=== PATIENT | female | born 1930 | race Caucasian/White ===

== ENCOUNTER 2017-04-14 09:00 | Inpatient (IN) | payer MEDICARE, MEDICAID ==
--- NOTE | 2017-04-14 09:13 | ED Physician Chart ---
ED Chief Complaint/HPI - Patient Information Date Seen:: 04/14/17 Time Seen:: 09:07 Chief Complaint:: chest pain History of Present Illness:: pt sent from ID after complaint of CP this am. pt arrives drowsey but not sweaty ..she speaks only romanian and can be aroused and talk w us in sp. she admits still has some moderate cp. not sob. no arm/ neck/jaw pains. no edema. not sob. no nausea. pt was given ntg 4 sprays and baby asa x 4 total from between both ems and NH staff. unclear but seems that asa/ntg has improved pain some. pt arrives w mercedes in 40s...is on multiple rate ctrl meds... no recent fever or cough or rhinitis. known hx of dm w high bs this am hx of cva and htn and high chol... Allergies:: Allergies Allergy/AdvReac Type Severity Reaction Status Date / Time No Known Allergies Allergy Verified 01/14/16 13:40 Historian:: Patient ED Review of Systems - Review of Systems General/Constitutional: No fever, No chills, No weight loss, No weakness, No diaphoresis, No edema, No loss of appetite Skin: No skin lesions, No rash, No bruising Head: No headache, No light-headedness Eyes: No loss of vision, No pain, No diplopia ENT: No earache, No nasal drainage, No sore throat, No tinnitus Neck: No neck pain, No swelling, No thyromegaly, No stiffness, No mass noted Cardio Vascular: Chest pain, No palpitations, No PND, No orthopnea, No edema Pulmonary: No SOB, No cough, No sputum, No wheezing GI: No nausea, No vomiting, No diarrhea, No pain, No melena, No hematochezia, No constipation, No hematemesis G/U: No dysuria, No frequency, No hematuria Tie Buyer: No vaginal discharge Musculoskeletal: No bone or joint pain, No back pain, No muscle pain, Other (no leg edema or pain) Endocrine: No polyuria, No polydipsia Psychiatric: No prior psych history, No depression, No anxiety, No suicidal ideation Hematopoietic: No bruising, No lymphadenopathy Allergic/Immuno: No urticaria, No angioedema Neurological: No syncope, Weakness (prior cva), No paresthesia, No headache, No seizure, No dizziness, No confusion, No vertigo ED Past Medical History - Past Medical History Past Medical History: HTN, DM, CVA/TIA (ambulatory difficulty post cva), Dyslipidemia Social History: Care Facility Medication: Reviewed Family Medical History - Family Member Mother History Unknown: Yes Ethnicity: Living Status: Unknown Hx Family Cancer: ([place]kn[place]) Hx Family Coronary Artery Disease: (unkn[place]) Hx Family Congestive Heart Failure: ([place]kn[place]) Hx Family Hypertension: ([place]) Hx Family Stroke: ([place]) Hx Family Diabetes: ([place]) Hx Family Seizures: ([place]) Hx Family Dementia: ([place]) Hx Family AIDS: ([place]) Hx Family COPD: (unkn[place]) Hx Family Hepatitis: ([place]) Hx Family Psychiatric Problems: (unknwon) Hx Family Tuberculosis: (unknwon) ED Physical Exam - Physical Examination General/Constitutional: Awake, Well-developed, well-nourished, Alert, No distress, GCS 15, Non-toxic appearing Other Gen/Cons comments:: pale color. tired/sleepy but can arouse and talk coherently in romanian without difficulty. she admits some mod cp now. no dyspnea. no edema. Head: Atraumatic Eyes: Lids, conjuctiva normal, PERRL, EOMI Skin: Nl inspection, No rash, No skin lesions, No ecchymosis, Well hydrated, No lymphadenopathy ENMT: External ears, nose nl, Nasal exam nl, Lips, teeth, gums nl Neck: Nontender, Full ROM w/o pain, No JVD, No nuchal rigidity, No bruit, No mass, No stridor Respiratory: Nl effort/Exclusion, Clear to Auscultation, No Wheeze/Rhonchi/Rales Other Respiratory comments:: lungs clear bilat//nonlabored breathing Cardio Vascular: RRR, No murmur, gallop, rubs, NL S1 S2 GI: No tenderness/rebounding/guarding, No organomegaly, No hernia, Normal BS's, Nondistended, No mass/bruits, No McBurney tenderness : No CVA tenderness Extremities: No tenderness or effusion, Full ROM, No edema, Normal digits & nails Neuro/Psych: Alert/oriented, DTR's symmetric, Normal sensory exam, Normal motor strength, Judgement/insight normal, Mood normal Other Neuro/Psych comments:: prior cva w gait difficulty documented.. Misc: normal gait, Normal back, No paraspinal tenderness Other Misc comments:: error above (gait not tested..unclear how to abolish this glitch //IT notified ) ED Labs/Radiology/EKG Results - Lab Results Results: Laboratory Tests 04/14/17 04/14/17 04/14/17 09:29 09:29 09:29 WBC 12.8 H D RBC 3.70 L Hgb 11.0 L Hct 33.0 L MCV 89.1 MCH 29.7 MCHC Differential 33.4 RDW 12.4 Plt Count 204 MPV 8.3 Neutrophils (Manual) 72 Lymphocytes 16 L Monocytes 8 Eosinophils 4 PT 11.7 H INR 1.12 PTT (Actin FS) 27.9 Sodium 121 L Potassium 4.2 Chloride 89 L Carbon Dioxide 20.7 L Anion Gap 15.5 BUN 13 Creatinine 0.7 Est GFR ( Amer) TNP Est GFR (Non-Af Amer) TNP BUN/Creatinine Ratio 18.6 Glucose 276 H Hemoglobin A1c % Whole Bld Lactic Acid Calcium 8.8 Total Bilirubin 0.6 AST 41 H ALT 58 H Alkaline Phosphatase 114 H Troponin I Total Protein 6.1 Albumin 3.8 Globulin 2.3 Albumin/Globulin Ratio 1.7 Blood Type 04/14/17 04/14/17 04/14/17 09:29 09:29 09:29 WBC RBC Hgb Hct MCV MCH MCHC Differential RDW Plt Count MPV Neutrophils (Manual) Lymphocytes Monocytes Eosinophils PT INR PTT (Actin FS) Sodium Potassium Chloride Carbon Dioxide Anion Gap BUN Creatinine Est GFR ( Amer) Est GFR (Non-Af Amer) BUN/Creatinine Ratio Glucose Hemoglobin A1c % Whole Bld Lactic Acid 3.81 H* Calcium Total Bilirubin AST ALT Alkaline Phosphatase Troponin I 0.01 Total Protein Albumin Globulin Albumin/Globulin Ratio Blood Type O POSITIVE 04/14/17 09:29 WBC RBC Hgb Hct MCV MCH MCHC Differential RDW Plt Count MPV Neutrophils (Manual) Lymphocytes Monocytes Eosinophils PT INR PTT (Actin FS) Sodium Potassium Chloride Carbon Dioxide Anion Gap BUN Creatinine Est GFR ( Amer) Est GFR (Non-Af Amer) BUN/Creatinine Ratio Glucose Hemoglobin A1c % 8.9 H Whole Bld Lactic Acid Calcium Total Bilirubin AST ALT Alkaline Phosphatase Troponin I Total Protein Albumin Globulin Albumin/Globulin Ratio Blood Type - Radiology Results Results: cxr - cmegally, mild interstitial markings.(no rales on PE) chronic changes. - EKG Interpretations EKG Time:: 09:05 Rate & Rhythm: mercedes rhythm 39bpm 1 deg hrt block [place]: qrs -58 Intervals: qtc 519 Comments:: LBBB ED Assessment - Assessment Critical Care Time: 1 hr Excludes all billable procedures: Yes This condition life threatening/high prob of deterioration: Yes Assessment/Comments:: life threatening bradycardia. txd w atropine 0.5mg iv and ca gluconate 1g iv. pacer pads on pt skin but left off for now ... ED Septic Shock - . Is Septic Shock (SBP<90, OR Lactate>4 mmol\L) present?: No ED Reassessment (Disposition) - Reassessment Reassessment:: pt had mercedes down to 30s so atropine 0.5 mg iv x 1 w rate improved up to mid 40s. no obvious change in pt ..pt sleeping but easily arousable and no sob. no sweaty. 10:45am - dw Jackelin w admin at 10;49 have not been getting a admit pmd as unclear who pt belongs to ..also need cards consult bentley as mercedes is persisting. have put pacer pads on pt but left pacer off unless pt becomes more unstable. have given ca gluconate 1gm iv also to improve rate...pt is on carvedilol and amlodipine and captopril 10:52am - dw Dr Hoyos...is admitting and consult to Dr Ellison (cards) HR is currently 45. mercedes/no ectopy. Reassessment Condition:: Improved - Diagnosis Diagnosis:: 1 chest pain 2 bradyarrythmia - Patient Disposition Admitted to:: Telemetry Condition at Disposition:: Improved
[2017-04-14] MEDS ORDERED: Sodium Chloride 0.9% 1,000 ML IV ONE (09:26)
[2017-04-14] MEDS ORDERED: Atropine Sulfate 1 mg/mL 1 mL Vial IVP ONE (09:26)
[2017-04-14 09:39] LABS: MEAN CELL VOLUME 89.1 fl (81-100); MEAN CORPUSCULAR HEMOGLOBIN 29.7 pg (27.0-31.0); MEAN CORPUSCULAR HGB CONC 33.4 pg (28.0-36.0); MEAN PLATELET VOLUME 8.3 fl; PLATELET COUNT 204 Th/cmm (150-400); RED CELL DISTRIBUTION WIDTH 12.4 % (11.5-20.0)
[2017-04-14 09:55] LABS: INR 1.12 (0.5-1.4); PROTHROMBIN TIME (TEST) 11.7 SECONDS (9.5-11.5)
[2017-04-14 09:58] LABS: ALB/GLOB RATIO 1.7 (1.0-1.8); ALKALINE PHOSPHATASE 114 U/L (34-104); ANION GAP 15.5 (7.0-16.0); BILIRUBIN,TOTAL 0.6 mg/dL (0.3-1.0); BUN - UREA NITROGEN 13 mg/dL (7-25); BUN/CREATININE RATIO 18.6; CALCIUM SERUM 8.8 mg/dL (8.6-10.3); CARBON DIOXIDE 20.7 mEq/L (21.0-31.0); CHLORIDE 89 mEq/L (98-107); CREATININE - SERUM 0.7 mg/dL (0.6-1.2); GLUCOSE 276 mg/dL (70-105); POTASSIUM SERUM 4.2 mEq/L (3.5-5.1); SGOT 41 U/L (13-39); SGPT/ALT 58 U/L (7-52); SODIUM SERUM 121 mEq/L (136-145)
[2017-04-14 10:06] LABS: EOSINOPHIL 4 % (0-5); NEUTROPHILS 72 % (40-80); TOTAL CELLS COUNTED 100
[2017-04-14 10:08] LABS: WHITE BLOOD COUNT 12.8 Th/cmm (4.8-10.8)
[2017-04-14] MEDS ORDERED: Calcium Gluconate 1 GM in Sodium Chloride 0.9% 100 ML IV ONE (10:21)
--- NOTE | 2017-04-14 11:01 | Diagnostic Imaging Report ---
CHEST X-RAY: AP view INDICATION: pain COMPARISON: 01/14/2016 FINDINGS: Increased interstitial lung markings are noted. There is no focal consolidation or pleural effusions heart size at the upper limits of normal. Degenerative changes of the spine are noted. IMPRESSION: Increased initial markings suggestive of chronic lung changes. No focal consolidation identified. Borderline prominent heart.
[2017-04-14 11:05] LABS: URINE BILIRUBIN NEGATIVE (NEGATIVE); URINE BLOOD NEGATIVE (NEGATIVE); URINE GLUCOSE (UA) >=1000 mg/dL (NEGATIVE); URINE KETONE TRACE mg/dL (NEGATIVE); URINE PROTEIN NEGATIVE (NEGATIVE); URINE UROBILINOGEN 0.2 E.U./dL (0.2 - 1.0)
--- NOTE | 2017-04-14 11:07 | General Progress Note ---
Subjective - Review of Systems Service Date: 04/14/17 Events since last encounter: case dw Dr Ellison at 11;06am. He advises pt go to ICU(staff aware) and is giving atropine prn order. He says will see pt within the hour. Objective - Results Result Diagrams: 04/14/17 09:29 04/14/17 09:29 Recent Labs: Laboratory Last Values WBC 12.8 Th/cmm (4.8-10.8) H D 04/14/17 09:29 RBC 3.70 Mil/cmm (3.80-5.20) L 04/14/17 09:29 Hgb 11.0 gm/dL (12-16) L 04/14/17 09: Hct 33.0 % (41.0-60) L 04/14/17 09: MCV 89.1 fl (81-100) 04/14/17 09: MCH 29.7 pg (27.0-31.0) 04/14/17 09: MCHC Differential 33.4 pg (28.0-36.0) 04/14/17 09: RDW 12.4 % (11.5-20.0) 04/14/17 09: Plt Count 204 Th/cmm (150-400) 04/14/17 09: MPV 8.3 fl 04/14/17 09:29 Neutrophils (Manual) 72 % (40-80) 04/14/17 09: Lymphocytes 16 % (20-50) L 04/14/17 09: Monocytes 8 % (2-10) 04/14/17 09: Eosinophils 4 % (0-5) 04/14/17 09:29 PT 11.7 SECONDS (9.5-11.5) H 04/14/17 09: INR 1.12 (0.5-1.4) 04/14/17 09: PTT (Actin FS) 27.9 SECONDS (26.0-38.0) 04/14/17 09:29 Sodium 121 mEq/L (136-145) L 04/14/17 09: Potassium 4.2 mEq/L (3.5-5.1) 04/14/17 09: Chloride 89 mEq/L (98-107) L 04/14/17 09:29 Carbon Dioxide 20.7 mEq/L (21.0-31.0) L 04/14/17 09:29 Anion Gap 15.5 (7.0-16.0) 04/14/17 09:29 BUN 13 mg/dL (7-25) 04/14/17 09:29 Creatinine 0.7 mg/dL (0.6-1.2) 04/14/17 09:29 Est GFR ( Amer) TNP 04/14/17 09:29 Est GFR (Non-Af Amer) TNP 04/14/17 09:29 BUN/Creatinine Ratio 18.6 04/14/17 09:29 Glucose 276 mg/dL (70-105) H 04/14/17 09:29 Hemoglobin A1c % 8.9 % (4.0-6.0) H 04/14/17 09:29 Whole Bld Lactic Acid 3.81 mmol/L (0.60-1.99) H* 04/14/17 09:29 Calcium 8.8 mg/dL (8.6-10.3) 04/14/17 09:29 Total Bilirubin 0.6 mg/dL (0.3-1.0) 04/14/17 09:29 AST 41 U/L (13-39) H 04/14/17 09:29 ALT 58 U/L (7-52) H 04/14/17 09:29 Alkaline Phosphatase 114 U/L (34-104) H 04/14/17 09:29 Troponin I 0.01 ng/mL (0.01-0.05) 04/14/17 09:29 Total Protein 6.1 gm/dL (6.0-8.3) 04/14/17 09:29 Albumin 3.8 gm/dL (3.7-5.3) 04/14/17 09:29 Globulin 2.3 gm/dL 04/14/17 09:29 Albumin/Globulin Ratio 1.7 (1.0-1.8) 04/14/17 09:29 Blood Type O POSITIVE 04/14/17 09:29 - Physical Exam Vitals and I&O: Vital Signs Temp 98.6 F 04/14/17 10:15 Pulse 41 04/14/17 10:15 Resp 15 04/14/17 10:15 BP 130/45 04/14/17 10:15 Pulse Ox 99 04/14/17 10:15 Intake & Output 04/13/17 04/14/17 04/14/17 18:59 06:59 18:59 Weight (lbs) 74.843 kg Active Medications: Current Medications Atropine Sulfate (Atropine) 0.5 mg IVP ONCE ONE Stop: 04/14/17 09:27 Last Admin: 04/14/17 09:31 Dose: 0.5 mg Sodium Chloride (Nacl 0.9%) 1,000 mls @ 100 mls/hr IV .Q10H ONE Stop: 04/14/17 19:25 Last Admin: 04/14/17 09:32 Dose: 100 mls/hr Calcium Gluconate 1 gm/ Sodium (Chloride) 110 mls @ 100 mls/hr IV NOW ONE Stop: 04/14/17 11:26 Last Admin: 04/14/17 10:41 Dose: 100 mls/hr - Procedures Procedures: Procedures Procedure Code Date GROUP PSYCHOTHERAPY 61577 05/02/15 GROUP PSYCHOTHERAPY GZHZZZZ 05/02/15 OTHER GROUP THERAPY 94.44 10/09/14 RECREATIONAL THERAPY 93.81 07/05/09 Assessment/Plan - Problem List Patient Problems: All Active Problems Aggression (Acute) R45.89 Agitation (Acute) R45.1
[2017-04-14 11:08] LABS: URINE COLOR YELLOW
[2017-04-14 11:11] LABS: URINE RBC 0-2 /hpf (0-5)
[2017-04-14 11:12] LABS: URINE BACTERIA MANY /hpf (NONE SEEN); URINE EPITHELIAL CELLS FEW /lpf (FEW)
--- NOTE | 2017-04-14 12:37 | Internal Medicine Prog Note ---
Internal Medicine Subjective - Subjective Service Date: 04/14/17 ([facility] [id number]) Internal Medicine Objective - Results Result Diagrams: 04/14/17 09:29 04/14/17 09:29 Recent Labs: Laboratory Last Values WBC 12.8 Th/cmm (4.8-10.8) H D 04/14/17 09: RBC 3.70 Mil/cmm (3.80-5.20) L 04/14/17 09: Hgb 11.0 gm/dL (12-16) L 04/14/17 09: Hct 33.0 % (41.0-60) L 04/14/17 09: MCV 89.1 fl (81-100) 04/14/17 09: MCH 29.7 pg (27.0-31.0) 04/14/17 09: MCHC Differential 33.4 pg (28.0-36.0) 04/14/17 09: RDW 12.4 % (11.5-20.0) 04/14/17 09: Plt Count 204 Th/cmm (150-400) 04/14/17 09:29 MPV 8.3 fl 04/14/17 09: Neutrophils (Manual) 72 % (40-80) 04/14/17 09: Lymphocytes 16 % (20-50) L 04/14/17 09: Monocytes 8 % (2-10) 04/14/17 09: Eosinophils 4 % (0-5) 04/14/17 09: PT 11.7 SECONDS (9.5-11.5) H 04/14/17 09: INR 1.12 (0.5-1.4) 04/14/17 09:29 PTT (Actin FS) 27.9 SECONDS (26.0-38.0) 04/14/17 09:29 Sodium 121 mEq/L (136-145) L 04/14/17 09: Potassium 4.2 mEq/L (3.5-5.1) 04/14/17 09: Chloride 89 mEq/L (98-107) L 04/14/17 09: Carbon Dioxide 20.7 mEq/L (21.0-31.0) L 04/14/17 09: Anion Gap 15.5 (7.0-16.0) 04/14/17 09:29 BUN 13 mg/dL (7-25) 04/14/17 09:29 Creatinine 0.7 mg/dL (0.6-1.2) 04/14/17 09:29 Est GFR ( Amer) TNP 04/14/17 09:29 Est GFR (Non-Af Amer) TNP 04/14/17 09:29 BUN/Creatinine Ratio 18.6 04/14/17 09:29 Glucose 276 mg/dL (70-105) H 04/14/17 09:29 Hemoglobin A1c % 8.9 % (4.0-6.0) H 04/14/17 09:29 Whole Bld Lactic Acid 2.80 mmol/L (0.60-1.99) H* 04/14/17 11:21 Calcium 8.8 mg/dL (8.6-10.3) 04/14/17 09: Total Bilirubin 0.6 mg/dL (0.3-1.0) 04/14/17 09: AST 41 U/L (13-39) H 04/14/17 09:29 ALT 58 U/L (7-52) H 04/14/17 09:29 Alkaline Phosphatase 114 U/L (34-104) H 04/14/17 09: Troponin I 0.01 ng/mL (0.01-0.05) 04/14/17 09:29 Total Protein 6.1 gm/dL (6.0-8.3) 04/14/17 09: Albumin 3.8 gm/dL (3.7-5.3) 04/14/17 09: Globulin 2.3 gm/dL 04/14/17 09:29 Albumin/Globulin Ratio 1.7 (1.0-1.8) 04/14/17 09:29 Urine Source CATH 04/14/17 10:02 Urine Color YELLOW 04/14/17 10:02 Urine Clarity HAZY (CLEAR) 04/14/17 10:02 Urine pH 6.0 (4.6 - 8.0) 04/14/17 10:02 Ur Specific [place] 1.010 (1.005-1.030) 04/14/17 10:02 Urine Protein NEGATIVE mg/dL (NEGATIVE) 04/14/17 10:02 Urine Glucose (UA) >=1000 mg/dL (NEGATIVE) H 04/14/17 10:02 Urine Ketones TRACE mg/dL (NEGATIVE) 04/14/17 10:02 Urine Blood NEGATIVE (NEGATIVE) 04/14/17 10:02 Urine Nitrate POSITIVE (NEGATIVE) H 04/14/17 10:02 Urine Bilirubin NEGATIVE (NEGATIVE) 04/14/17 10:02 Urine Urobilinogen 0.2 E.U./dL (0.2 - 1.0) 04/14/17 10:02 Ur Leukocyte Esterase NEGATIVE (NEGATIVE) 04/14/17 10:02 Urine RBC 0-2 /hpf (0-5) 04/14/17 10:02 Urine WBC 2-5 /hpf (0-5) 04/14/17 10:02 Ur Epithelial Cells FEW /lpf (FEW) 04/14/17 10:02 Urine Bacteria MANY /hpf (NONE SEEN) 04/14/17 10:02 Blood Type O POSITIVE 04/14/17 09:29 - Physical Exam Vitals and I&O: Vital Signs Temp 98.6 F 04/14/17 11:03 Pulse 58 04/14/17 11:03 Resp 19 04/14/17 11:03 BP 130/45 04/14/17 10:15 Pulse Ox 100 04/14/17 11:03 Active Medications: Current Medications Atropine Sulfate (Atropine Syringe) 1 mg IVP Q4H PRN PRN Reason: HR below40 Stop: 06/13/17 12:59 Sodium Chloride (Nacl 0.9%) 1,000 mls @ 100 mls/hr IV .Q10H ONE Stop: 04/14/17 19:25 Last Admin: 04/14/17 09:32 Dose: 100 mls/hr - Procedures Procedures: Procedures Procedure Code Date GROUP PSYCHOTHERAPY 09547 05/02/15 GROUP PSYCHOTHERAPY GZHZZZZ 05/02/15 OTHER GROUP THERAPY 94.44 10/09/14 RECREATIONAL THERAPY 93.81 07/05/09 Internal Medicine Assmt/Plan - Assessment Assessment: Chest Pain Bradycardia Lactic acidosis Acute UTI dementia htn dm-2 hyponatremia
[2017-04-14] MEDS ORDERED: Ipratropium Neb 0.5 mg/2.5 mL UD IH PRN (12:42)
[2017-04-14] MEDS ORDERED: guaiFENesin 200 MG/10 ML UDC PO PRN (12:42)
[2017-04-14] MEDS ORDERED: Albuterol Nebulizer 2.5mg/3mL IH PRN (12:42)
[2017-04-14] MEDS ORDERED: Sodium Chloride 0.9% 1,000 ML IV SCH (12:45)
[2017-04-14] MEDS ORDERED: Levofloxacin 500mg/100mL 500 MG/100 ML BAG IV ONE (14:10)
[2017-04-14] MEDS: Levofloxacin 500mg/100mL 500 MG/100 ML BAG IV SCH (14:13)
[2017-04-14] MEDS ORDERED: Non-Formulary Item 1 EA (Insulin Lispro [Humalog] 2 UNIT) SUBQ SCH (16:30)
--- NOTE | 2017-04-14 16:39 | History & Physical ---
ADMIT DATE: 04/14/2017 CHIEF COMPLAINT: Chest pain. HISTORY OF PRESENT ILLNESS: This is an 86-year-old female who has a 2-day history of chest pain. In the ER, the patient was noted to have a symptomatic bradycardia. Heart rate would be in the mid 30s to the mid 50s. For this reason, the patient will be admitted to the ICU unit. PAST MEDICAL HISTORY: Stroke, hypercholesterolemia, hypertension, dementia. PAST SURGICAL HISTORY: Unknown. MEDICATIONS: Lantus, metformin, Norvasc, captopril, Reglan, omeprazole, Aricept, Colace, temazepam, Namenda, simvastatin, and Zyprexa. ALLERGIES: No known allergies. SOCIAL HISTORY: The patient is a skilled nursing resident, requiring 24-hour nursing care. FAMILY HISTORY: Noncontributory. REVIEW OF SYSTEMS: GENERAL: Denies any fevers and chills. CARDIOVASCULAR: The patient noted bradycardia, complaints of chest pain. RESPIRATORY: Denies any shortness of breath or any cough. GASTROINTESTINAL: Denies nausea, vomiting, abdominal pain. GENITOURINARY: Denies any dysuria. All other systems are reviewed by me and are negative. PHYSICAL EXAMINATION: GENERAL: This is an elderly female, awake, alert, in no apparent distress. VITAL SIGNS: Temperature 98.6, heart rate 58, respirations 19, blood pressure 130/45, O2 sat of 100%. HEENT: Head; normocephalic, atraumatic. NECK: Supple. No mass. LUNGS: Clear bilaterally. HEART: No murmurs, no gallops. ABDOMEN: Soft and nontender. LABORATORY DATA: WBC 12.8, hemoglobin 11.0, hematocrit 33.0. Sodium 121, potassium 4.2, chloride 89, carbon dioxide 20.7. BUN 13, creatinine 0.7 whole blood lactic acid 2.80, hemoglobin A1c 8.9. The patient was given in x1 calcium gluconate as well as x1 IV push of atropine. DIAGNOSTICS: The patient had a chest x-ray done and impression is increased interstitial markings suggestive of chronic lung changes, no focal consolidation identified. ASSESSMENT: Chest pain, bradycardia, hyponatremia, lactic acidosis, type 2 diabetes, hypertension, dementia. PLAN: The patient to be admitted to the ICU unit. We will get an echocardiogram. We will have Dr. Hang Ellison on the case. We will have Dr. Ames for possible pacemaker placement, 2D echocardiogram, IV fluids for hydration. We will monitor patient's electrolytes level. We will continue to monitor the patient. JOB# [id number]
[2017-04-14] MEDS: MED PO SCH (16:49)
[2017-04-14] MEDS: Dextromethorphan/Quinidine 20mg/10mg Cap PO SCH (16:50)
[2017-04-14] MEDS ORDERED: METFORMIN HCL 1000 MG PO SCH (17:00)
[2017-04-14] MEDS: Sodium Chloride 0.9% 1,000 ML IV SCH (20:59)
[2017-04-14] MEDS ORDERED: Non-Formulary Item 1 EA (Rosuvastatin Calcium [Crestor] 5 MG) PO SCH (21:00)
[2017-04-14] MEDS ORDERED: INSULIN ASPART MIX SUBQ SCH (21:00)
[2017-04-14] MEDS ORDERED: PRAVASTATIN SODIUM 80 MG PO SCH (21:00)
[2017-04-14] MEDS ORDERED: GLUCAGON HCl 1 MG KIT IM PRN (21:01)
[2017-04-14] MEDS ORDERED: Dextrose 50% 50 mL Abboject IVP PRN (21:01)
[2017-04-14] MEDS: INSULIN ASPART SLIDING SCALE 100 UNITS/ML UNIT SUBQ SCH (22:00)
--- NOTE | 2017-04-15 02:22 | Consultation ---
DATE OF CONSULTATION: 04/14/2017 PATIENT OF: Dr. Chacon. HISTORY AND PHYSICAL: This 86-year-old female patient was brought to the Emergency Room complaining of weakness. In the Emergency Room, the patient was found to have severe bradycardia with episodes of third-degree AV block and the patient was admitted. PAST MEDICAL HISTORY: CVA with late effect, hyperlipidemia, hypertension, dementia, anemia, diabetes mellitus type 2, hyperlipidemia. FAMILY HISTORY: Unremarkable. SOCIAL HISTORY: No history of smoking or alcohol abuse. ALLERGIES: No known allergies. PHYSICAL EXAMINATION: VITAL SIGNS: Blood pressure 130/80, pulse 40, respirations 20. HEAD: Normocephalic. No lumps or bumps. EYES: Pupils equal, reactive to light. Fundi show AV nicking, sclerae white, conjunctivae pink. NECK: Carotid 2+. Normal upstroke. JVD flat. Thyroid not palpable. Lymph nodes not palpable. CHEST: Shows increased AP diameter. No kyphosis, scoliosis. LUNGS: Bilateral bronchovesicular breath sounds. Occasional wheeze. No rales. HEART: PMI fifth intercostal space with lateral to midclavicular line. S1, S2. No S3, S4. Systolic murmur, grade 2/6, lower left sternal border without radiation. ABDOMEN: Soft. Liver, spleen not palpable. No organomegaly. Bowel sounds are active. NEUROLOGIC: Unremarkable. EXTREMITIES: Peripheral pulses 2+. No pedal edema. CLINICAL IMPRESSION: Complete heart block, iron deficiency anemia, hyponatremia, diabetes mellitus type 2, hyperlipidemia, cerebrovascular accident with late effect dementia, and osteoporosis. PLAN: The patient to have an external pacemaker at the present time followed by AV sequential pacemaker. We will also get echocardiogram and troponin levels, TSH level. JOB# [id number]
[2017-04-15 05:50] LABS: % BASOPHILS 3.1 % (0.0-2.0); % EOSINOPHILS 0.4 % (0.0-5.0); % LYMPHOCYTES 15.9 % (20.0-50.0); % MONOCYTES 7.2 % (2.0-10.0); % NEUTROPHILS 73.4 % (40.0-80.0); HEMATOCRIT 29.8 % (41.0-60); HEMOGLOBIN 10.1 gm/dL (12-16); MEAN CELL VOLUME 88.9 fl (81-100); MEAN CORPUSCULAR HGB CONC 33.8 pg (28.0-36.0); MEAN PLATELET VOLUME 8.2 fl; NEUTROPHILE ABSOLUTE 6.8 Th/cmm (1.8-8.0); PLATELET COUNT 170 Th/cmm (150-400); RED BLOOD COUNT 3.35 Mil/cmm (3.80-5.20); RED CELL DISTRIBUTION WIDTH 12.4 % (11.5-20.0)
[2017-04-15 05:51] LABS: WHITE BLOOD COUNT 9.3 Th/cmm (4.8-10.8)
[2017-04-15 06:34] LABS: BUN - UREA NITROGEN 13 mg/dL (7-25); BUN/CREATININE RATIO 16.3; CALCIUM SERUM 8.5 mg/dL (8.6-10.3); CARBON DIOXIDE 24.6 mEq/L (21.0-31.0); CHLORIDE 97 mEq/L (98-107); CREATININE - SERUM 0.8 mg/dL (0.6-1.2); GLUCOSE 201 mg/dL (70-105); MAGNESIUM 1.9 mg/dL (1.9-2.7); PHOSPHOROUS 4.3 mg/dL (2.5-5.0); POTASSIUM SERUM 4.6 mEq/L (3.5-5.1); SODIUM SERUM 127 mEq/L (136-145)
[2017-04-15] MEDS ORDERED: INSULIN 70/30 100 UNITS/ML SUBQ SCH (07:30)
[2017-04-15] MEDS: INSULIN ASPART SLIDING SCALE 100 UNITS/ML UNIT SUBQ SCH ×5 (08:00→21:53)
[2017-04-15] MEDS ORDERED: Non-Formulary Item 1 EA (Meloxicam [Meloxicam] 15 MG) PO SCH (09:00)
[2017-04-15] MEDS: Multivitamin Tab PO SCH (10:45)
[2017-04-15] MEDS: Lactobacillus Rhamnosus 10 Billion CFU Capsule PO SCH (10:46)
[2017-04-15] MEDS: MED PO SCH ×2 (10:50→19:20)
[2017-04-15] MEDS: Hydrocodone/APAP 5mg/325mg Tab PO PRN ×2 (11:01→20:14)
[2017-04-15] MEDS ORDERED: VTE Chemical Prophylaxis Screen/Admission MC PRN (11:05)
[2017-04-15] MEDS: Dextromethorphan/Quinidine 20mg/10mg Cap PO SCH ×2 (11:06→18:01)
--- NOTE | 2017-04-15 13:28 | Internal Medicine Prog Note ---
Internal Medicine Subjective - Subjective Service Date: 04/15/17 Patient seen and examined:: with staff Patient is:: awake, verbal Per staff patient has:: no adverse event, tolerating meds Internal Medicine Objective - Results Result Diagrams: 04/15/17 05:35 04/15/17 05:35 Recent Labs: Laboratory Last Values WBC 9.3 Th/cmm (4.8-10.8) D 04/15/17 05:35 RBC 3.35 Mil/cmm (3.80-5.20) L 04/15/17 05:35 Hgb 10.1 gm/dL (12-16) L 04/15/17 05:35 Hct 29.8 % (41.0-60) L 04/15/17 05:35 MCV 88.9 fl (81-100) 04/15/17 05:35 MCH 30.0 pg (27.0-31.0) 04/15/17 05:35 MCHC Differential 33.8 pg (28.0-36.0) 04/15/17 05:35 RDW 12.4 % (11.5-20.0) 04/15/17 05:35 Plt Count 170 Th/cmm (150-400) 04/15/17 05:35 MPV 8.2 fl 04/15/17 05:35 Neutrophils % 73.4 % (40.0-80.0) 04/15/17 05:35 Lymphocytes % 15.9 % (20.0-50.0) L 04/15/17 05:35 Monocytes % 7.2 % (2.0-10.0) 04/15/17 05:35 Eosinophils % 0.4 % (0.0-5.0) 04/15/17 05:35 Basophils % 3.1 % (0.0-2.0) H 04/15/17 05:35 Neutrophils (Manual) 72 % (40-80) 04/14/17 09:29 Lymphocytes 16 % (20-50) L 04/14/17 09:29 Monocytes 8 % (2-10) 04/14/17 09:29 Eosinophils 4 % (0-5) 04/14/17 09:29 PT 11.7 SECONDS (9.5-11.5) H 04/14/17 09:29 INR 1.12 (0.5-1.4) 04/14/17 09:29 PTT (Actin FS) 27.9 SECONDS (26.0-38.0) 04/14/17 09:29 Plt Function Studies SEE COMMENTS 04/15/17 05:35 Sodium 127 mEq/L (136-145) L 04/15/17 05:35 Potassium 4.6 mEq/L (3.5-5.1) 04/15/17 05:35 Chloride 97 mEq/L (98-107) L 04/15/17 05:35 Carbon Dioxide 24.6 mEq/L (21.0-31.0) 04/15/17 05:35 Anion Gap 10.0 (7.0-16.0) 04/15/17 05:35 BUN 13 mg/dL (7-25) 04/15/17 05:35 Creatinine 0.8 mg/dL (0.6-1.2) 04/15/17 05:35 Est GFR ( Amer) TNP 04/15/17 05:35 Est GFR (Non-Af Amer) TNP 04/15/17 05:35 BUN/Creatinine Ratio 16.3 04/15/17 05:35 Glucose 201 mg/dL (70-105) H 04/15/17 05:35 POC Glucose 199 MG/DL (70 - 105) H 04/15/17 07:01 Hemoglobin A1c % 8.9 % (4.0-6.0) H 04/14/17 09:29 Whole Bld Lactic Acid 2.80 mmol/L (0.60-1.99) H* 04/14/17 11:21 Calcium 8.5 mg/dL (8.6-10.3) L 04/15/17 05:35 Phosphorus 4.3 mg/dL (2.5-5.0) 04/15/17 05:35 Magnesium 1.9 mg/dL (1.9-2.7) 04/15/17 05:35 Total Bilirubin 0.6 mg/dL (0.3-1.0) 04/14/17 09:29 AST 41 U/L (13-39) H 04/14/17 09:29 ALT 58 U/L (7-52) H 04/14/17 09:29 Alkaline Phosphatase 114 U/L (34-104) H 04/14/17 09:29 Troponin I 0.01 ng/mL (0.01-0.05) 04/14/17 09:29 B-Natriuretic Peptide 203.0 pg/mL (5.0-100.0) H 04/15/17 05:35 Total Protein 6.1 gm/dL (6.0-8.3) 04/14/17 09:29 Albumin 3.8 gm/dL (3.7-5.3) 04/14/17 09: Globulin 2.3 gm/dL 04/14/17 09: Albumin/Globulin Ratio 1.7 (1.0-1.8) 04/14/17 09: TSH 1.98 uIU/ml (0.34-5.60) 04/14/17 11:21 Urine Source CATH 04/14/17 10:02 Urine Color YELLOW 04/14/17 10:02 Urine Clarity HAZY (CLEAR) 04/14/17 10:02 Urine pH 6.0 (4.6 - 8.0) 04/14/17 10:02 Ur Specific [place] 1.010 (1.005-1.030) 04/14/17 10:02 Urine Protein NEGATIVE mg/dL (NEGATIVE) 04/14/17 10:02 Urine Glucose (UA) >=1000 mg/dL (NEGATIVE) H 04/14/17 10:02 Urine Ketones TRACE mg/dL (NEGATIVE) 04/14/17 10:02 Urine Blood NEGATIVE (NEGATIVE) 04/14/17 10:02 Urine Nitrate POSITIVE (NEGATIVE) H 04/14/17 10:02 Urine Bilirubin NEGATIVE (NEGATIVE) 04/14/17 10:02 Urine Urobilinogen 0.2 E.U./dL (0.2 - 1.0) 04/14/17 10:02 Ur Leukocyte Esterase NEGATIVE (NEGATIVE) 04/14/17 10:02 Urine RBC 0-2 /hpf (0-5) 04/14/17 10:02 Urine WBC 2-5 /hpf (0-5) 04/14/17 10:02 Ur Epithelial Cells FEW /lpf (FEW) 04/14/17 10:02 Urine Bacteria MANY /hpf (NONE SEEN) 04/14/17 10:02 Blood Type O POSITIVE 04/14/17 09: Antibody Screen NEGATIVE 04/14/17 09:29 - Physical Exam Vitals and I&O: Vital Signs Temp 98 F 04/15/17 08:00 Pulse 45 04/15/17 10:50 Resp 21 04/15/17 10:00 BP 120/48 04/15/17 10:50 Pulse Ox 98 04/15/17 10:00 Intake & Output 04/14/17 04/15/17 04/15/17 18:59 06:59 18:59 Intake Total 800 Output Total 400 Balance 400 Weight (lbs) 166 lb 6.4 oz Intake: Intake, IV Amount 750 Sodium Chloride 0.9% 1, 750 000 ml @ 60 mls/hr IV . [id number] [facility] Rx#:[id number] Oral 50 Output: Urine 400 Stool 0 Active Medications: Current Medications Acetaminophen (Tylenol) 650 mg PO Q4HR PRN PRN Reason: Mild Pain Or Fever above 101 Stop: 06/13/17 12:41 Last Admin: 04/14/17 15:18 Dose: 650 mg Acetaminophen/Hydrocodone Bitart ([place] 5mg/325mg) 1 tab PO Q8H PRN PRN Reason: moderate pain Stop: 06/13/17 12:36 Last Admin: 04/15/17 11:01 Dose: 1 tab Albuterol Sulfate (Albuterol 2.5mg/3ml Neb Ud) 2.5 mg IH Q2HR PRN PRN Reason: Shortness of Breath or Wheeze Stop: 06/13/17 12:41 Atropine Sulfate (Atropine Syringe) 1 mg IVP Q4H PRN PRN Reason: HR below40 Stop: 06/13/17 12:59 Last Admin: 04/14/17 21:05 Dose: 1 mg Captopril (Capoten 25 Mg Tab) 50 mg PO BID [facility] Stop: 06/13/17 16:59 Last Admin: 04/15/17 10:50 Dose: Not Given Dextromethorphan/Quinidine (Nuedexta 20mg-10mg) 1 cap PO BID [facility] Stop: 06/13/17 16:59 Last Admin: 04/15/17 11:06 Dose: 1 cap Dextrose (D50w) 50 ml IVP PRN PRN PRN Reason: Blood Glucose less than 70 Stop: 06/13/17 21:00 Dextrose (Glutose 40%) 18.75 gm PO PRN PRN PRN Reason: Blood Glucose less than 70 Stop: 06/13/17 21:00 Docusate Sodium (Colace) 250 mg PO DAILY [facility] Stop: 06/14/17 08:59 Last Admin: 04/15/17 10:45 Dose: 250 mg Donepezil HCl (Aricept) 10 mg PO HS [facility] Stop: 06/13/17 20:59 Last Admin: 04/14/17 21:00 Dose: 10 mg Glucagon (Glucagen) 1 mg IM PRN PRN PRN Reason: Blood Glucose less than 70 Stop: 06/13/17 21:00 Guaifenesin (Robitussin) 100 mg PO Q4H PRN PRN Reason: Cough or Congestion Stop: 06/13/17 12:41 Heparin Sodium (Porcine) (Heparin) 5,000 units SUBQ Q12HR [facility] Stop: 06/14/17 10:59 Levofloxacin (Levaquin Pb) 500 mg in 100 mls @ 100 mls/hr IV Q24HR [facility] Stop: 06/13/17 13:59 Last Admin: 04/14/17 14:13 Dose: 100 mls/hr Sodium Chloride (Nacl 0.9%) 1,000 mls @ 60 mls/hr IV .[id number] [facility] Stop: 06/13/17 12:44 Last Admin: 04/14/17 20:59 Dose: 60 mls/hr Insulin Aspart (Novolog Insulin Sliding Scale) 0 units SUBQ ACHS [facility] PRN Reason: Protocol Stop: 06/13/17 16:29 Last Admin: 04/15/17 08:00 Dose: Not Given Insulin Human Isoph/Insulin Regular (Novolin 70/30) 20 units SUBQ QDAC [facility] Stop: 06/14/17 13:10 Ipratropium [place] (Atrovent Neb 0.5mg/2.5ml) 0.5 mg IH Q2HR PRN PRN Reason: Shortness of Breath or Wheeze Stop: 06/13/17 12:41 Lactobacillus Rhamnosus (Culturelle) 1 each PO DAILY [facility] Stop: 06/14/17 08:59 Last Admin: 04/15/17 10:46 Dose: 1 each Loratadine (Claritin) 10 mg PO DAILY [facility] Stop: 06/14/17 08:59 Last Admin: 04/15/17 10:45 Dose: 10 mg Memantine (Namenda) 10 mg PO BID [facility] Stop: 06/13/17 16:59 Last Admin: 04/15/17 10:49 Dose: 10 mg Miscellaneous (Meloxicam [Meloxicam]) 15 mg PO DAILY [facility] Stop: 06/14/17 08:59 Miscellaneous (Vte Chemical Prophylaxis Screen/ Admission) 1 ea [facility] PRN PRN PRN Reason: PROTOCOL Stop: 06/14/17 11:04 Multivitamins/Vitamin C (Theragran) 1 tab PO DAILY [facility] Stop: 06/14/17 08:59 Last Admin: 04/15/17 10:45 Dose: 1 tab Nitroglycerin (Nitrostat) 0.4 mg SL Q5MIN PRN PRN Reason: Chest Pain Stop: 06/13/17 12:36 Olanzapine (Zyprexa) 5 mg PO HS [facility] PRN Reason: Protocol Stop: 06/13/17 20:59 Ondansetron HCl (Zofran) 4 mg IV Q8H PRN PRN Reason: Nausea / Vomiting Stop: 06/13/17 12:41 Pantoprazole Sodium (Protonix) 40 mg IVP DAILY [facility] Stop: 06/14/17 08:59 Last Admin: 04/15/17 10:46 Dose: 40 mg General: weak, alert HEENT: NC/AT, PERRLA Neck: Supple, No JVD Lungs: CTAB Cardiovascular: mercedes Abdomen: soft, non-tender, non-distended, positive bowel sound Extremities: excoriation Neurological: alert - Procedures Procedures: Procedures Procedure Code Date GROUP PSYCHOTHERAPY 35054 05/02/15 GROUP PSYCHOTHERAPY GZHZZZZ 05/02/15 OTHER GROUP THERAPY 94.44 10/09/14 RECREATIONAL THERAPY 93.81 07/05/09 Internal Medicine Assmt/Plan - Assessment Assessment: Chest Pain Bradycardia Lactic acidosis Acute UTI dementia htn dm-2 hyponatremia - Plan Plan: icu monitoring pacemaker placement continue external pacemaker await for 2d echo monitor troponin levels continue current tx
[2017-04-15] MEDS: Levofloxacin 500mg/100mL 500 MG/100 ML BAG IV SCH (13:32)
[2017-04-15] MEDS ORDERED: Probiotic Screen MC PRN (15:55)
--- NOTE | 2017-04-15 16:35 | General Progress Note ---
Subjective - Review of Systems Service Date: 04/15/17 Events since last encounter: HR remains show at times last took Plavix 2 days ago recheck PFT in AM, if ok proceed with pacemaker Objective - Results Result Diagrams: 04/15/17 05:35 04/15/17 05:35 Recent Labs: Laboratory Last Values WBC 9.3 Th/cmm (4.8-10.8) D 04/15/17 05:35 RBC 3.35 Mil/cmm (3.80-5.20) L 04/15/17 05:35 Hgb 10.1 gm/dL (12-16) L 04/15/17 05:35 Hct 29.8 % (41.0-60) L 04/15/17 05:35 MCV 88.9 fl (81-100) 04/15/17 05:35 MCH 30.0 pg (27.0-31.0) 04/15/17 05:35 MCHC Differential 33.8 pg (28.0-36.0) 04/15/17 05:35 RDW 12.4 % (11.5-20.0) 04/15/17 05:35 Plt Count 170 Th/cmm (150-400) 04/15/17 05:35 MPV 8.2 fl 04/15/17 05:35 Neutrophils % 73.4 % (40.0-80.0) 04/15/17 05:35 Lymphocytes % 15.9 % (20.0-50.0) L 04/15/17 05:35 Monocytes % 7.2 % (2.0-10.0) 04/15/17 05:35 Eosinophils % 0.4 % (0.0-5.0) 04/15/17 05:35 Basophils % 3.1 % (0.0-2.0) H 04/15/17 05:35 Neutrophils (Manual) 72 % (40-80) 04/14/17 09:29 Lymphocytes 16 % (20-50) L 04/14/17 09:29 Monocytes 8 % (2-10) 04/14/17 09:29 Eosinophils 4 % (0-5) 04/14/17 09:29 PT 11.7 SECONDS (9.5-11.5) H 04/14/17 09:29 INR 1.12 (0.5-1.4) 04/14/17 09:29 PTT (Actin FS) 27.9 SECONDS (26.0-38.0) 04/14/17 09:29 Plt Function Studies SEE COMMENTS 04/15/17 05:35 Sodium 127 mEq/L (136-145) L 04/15/17 05:35 Potassium 4.6 mEq/L (3.5-5.1) 04/15/17 05:35 Chloride 97 mEq/L (98-107) L 04/15/17 05:35 Carbon Dioxide 24.6 mEq/L (21.0-31.0) 04/15/17 05:35 Anion Gap 10.0 (7.0-16.0) 04/15/17 05:35 BUN 13 mg/dL (7-25) 04/15/17 05:35 Creatinine 0.8 mg/dL (0.6-1.2) 04/15/17 05:35 Est GFR ( Amer) TNP 04/15/17 05:35 Est GFR (Non-Af Amer) TNP 04/15/17 05:35 BUN/Creatinine Ratio 16.3 04/15/17 05:35 Glucose 201 mg/dL (70-105) H 04/15/17 05:35 POC Glucose 264 MG/DL (70 - 105) H 04/15/17 13:39 Hemoglobin A1c % 8.9 % (4.0-6.0) H 04/14/17 09:29 Whole Bld Lactic Acid 2.80 mmol/L (0.60-1.99) H* 04/14/17 11:21 Calcium 8.5 mg/dL (8.6-10.3) L 04/15/17 05:35 Phosphorus 4.3 mg/dL (2.5-5.0) 04/15/17 05:35 Magnesium 1.9 mg/dL (1.9-2.7) 04/15/17 05:35 Total Bilirubin 0.6 mg/dL (0.3-1.0) 04/14/17 09:29 AST 41 U/L (13-39) H 04/14/17 09:29 ALT 58 U/L (7-52) H 04/14/17 09:29 Alkaline Phosphatase 114 U/L (34-104) H 04/14/17 09:29 Ammonia 46 umol/L (16-53) 04/15/17 14:12 Troponin I 0.01 ng/mL (0.01-0.05) 04/14/17 09:29 B-Natriuretic Peptide 203.0 pg/mL (5.0-100.0) H 04/15/17 05:35 Total Protein 6.1 gm/dL (6.0-8.3) 04/14/17 09: Albumin 3.8 gm/dL (3.7-5.3) 04/14/17 09:29 Globulin 2.3 gm/dL 04/14/17 09: Albumin/Globulin Ratio 1.7 (1.0-1.8) 04/14/17 09: TSH 1.98 uIU/ml (0.34-5.60) 04/14/17 11:21 Urine Source CATH 04/14/17 10:02 Urine Color YELLOW 04/14/17 10:02 Urine Clarity HAZY (CLEAR) 04/14/17 10:02 Urine pH 6.0 (4.6 - 8.0) 04/14/17 10:02 Ur Specific [place] 1.010 (1.005-1.030) 04/14/17 10:02 Urine Protein NEGATIVE mg/dL (NEGATIVE) 04/14/17 10:02 Urine Glucose (UA) >=1000 mg/dL (NEGATIVE) H 04/14/17 10:02 Urine Ketones TRACE mg/dL (NEGATIVE) 04/14/17 10:02 Urine Blood NEGATIVE (NEGATIVE) 04/14/17 10:02 Urine Nitrate POSITIVE (NEGATIVE) H 04/14/17 10:02 Urine Bilirubin NEGATIVE (NEGATIVE) 04/14/17 10:02 Urine Urobilinogen 0.2 E.U./dL (0.2 - 1.0) 04/14/17 10:02 Ur Leukocyte Esterase NEGATIVE (NEGATIVE) 04/14/17 10:02 Urine RBC 0-2 /hpf (0-5) 04/14/17 10:02 Urine WBC 2-5 /hpf (0-5) 04/14/17 10:02 Ur Epithelial Cells FEW /lpf (FEW) 04/14/17 10:02 Urine Bacteria MANY /hpf (NONE SEEN) 04/14/17 10:02 Blood Type O POSITIVE 04/14/17 09:29 Antibody Screen NEGATIVE 04/14/17 09:29 - Physical Exam Vitals and I&O: Vital Signs Temp 96.9 F 04/15/17 12:00 Pulse 100 04/15/17 15:00 Resp 20 04/15/17 15:00 BP 130/46 04/15/17 15:00 Pulse Ox 98 04/15/17 15:00 Intake & Output 04/14/17 04/15/17 04/15/17 18:59 06:59 18:59 Intake Total 100 800 100 Output Total 400 Balance 100 400 100 Weight (lbs) 75.478 kg Intake: Intake, IV Amount 100 750 100 Levofloxacin 500mg/100mL 100 100 500 mg In 100 ml @ 100 mls/hr IV Q24HR [facility] Rx#: [id number] Sodium Chloride 0.9% 1, 750 000 ml @ 60 mls/hr IV . [id number] [facility] Rx#:[id number] Oral 50 Output: Urine 400 Stool 0 Active Medications: Current Medications Acetaminophen (Tylenol) 650 mg PO Q4HR PRN PRN Reason: Mild Pain Or Fever above 101 Stop: 06/13/17 12:41 Last Admin: 04/14/17 15:18 Dose: 650 mg Acetaminophen/Hydrocodone Bitart ([place] 5mg/325mg) 1 tab PO Q8H PRN PRN Reason: moderate pain Stop: 06/13/17 12:36 Last Admin: 04/15/17 11:01 Dose: 1 tab Albuterol Sulfate (Albuterol 2.5mg/3ml Neb Ud) 2.5 mg IH Q2HR PRN PRN Reason: Shortness of Breath or Wheeze Stop: 06/13/17 12:41 Atropine Sulfate (Atropine Syringe) 1 mg IVP Q4H PRN PRN Reason: HR below40 Stop: 06/13/17 12:59 Last Admin: 04/14/17 21:05 Dose: 1 mg Captopril (Capoten 25 Mg Tab) 50 mg PO BID [facility] Stop: 06/13/17 16:59 Last Admin: 04/15/17 10:50 Dose: Not Given Dextromethorphan/Quinidine (Nuedexta 20mg-10mg) 1 cap PO BID [facility] Stop: 06/13/17 16:59 Last Admin: 04/15/17 11:06 Dose: 1 cap Dextrose (D50w) 50 ml IVP PRN PRN PRN Reason: Blood Glucose less than 70 Stop: 06/13/17 21:00 Dextrose (Glutose 40%) 18.75 gm PO PRN PRN PRN Reason: Blood Glucose less than 70 Stop: 06/13/17 21:00 Docusate Sodium (Colace) 250 mg PO DAILY [facility] Stop: 06/14/17 08:59 Last Admin: 04/15/17 10:45 Dose: 250 mg Donepezil HCl (Aricept) 10 mg PO HS [facility] Stop: 06/13/17 20:59 Last Admin: 04/14/17 21:00 Dose: 10 mg Glucagon (Glucagen) 1 mg IM PRN PRN PRN Reason: Blood Glucose less than 70 Stop: 06/13/17 21:00 Guaifenesin (Robitussin) 100 mg PO Q4H PRN PRN Reason: Cough or Congestion Stop: 06/13/17 12:41 Heparin Sodium (Porcine) (Heparin) 5,000 units SUBQ Q12HR [facility] Stop: 06/14/17 10:59 Last Admin: 04/15/17 13:34 Dose: 5,000 units Levofloxacin (Levaquin Pb) 500 mg in 100 mls @ 100 mls/hr IV Q24HR [facility] Stop: 06/13/17 13:59 Last Infusion: 04/15/17 15:35 Dose: Infused Sodium Chloride (Nacl 0.9%) 1,000 mls @ 60 mls/hr IV .[id number] [facility] Stop: 06/13/17 12:44 Last Admin: 04/14/17 20:59 Dose: 60 mls/hr Insulin Aspart (Novolog Insulin Sliding Scale) 0 units SUBQ ACHS [facility] PRN Reason: Protocol Stop: 06/13/17 16:29 Last Admin: 04/15/17 13:43 Dose: 7 units Insulin Human Isoph/Insulin Regular (Novolin 70/30) 20 units SUBQ QDAC [facility] Stop: 06/15/17 07:29 Ipratropium [place] (Atrovent Neb 0.5mg/2.5ml) 0.5 mg IH Q2HR PRN PRN Reason: Shortness of Breath or Wheeze Stop: 06/13/17 12:41 Lactobacillus Rhamnosus (Culturelle) 1 each PO DAILY [facility] Stop: 06/14/17 08:59 Last Admin: 04/15/17 10:46 Dose: 1 each Loratadine (Claritin) 10 mg PO DAILY [facility] Stop: 06/14/17 08:59 Last Admin: 04/15/17 10:45 Dose: 10 mg Memantine (Namenda) 10 mg PO BID [facility] Stop: 06/13/17 16:59 Last Admin: 04/15/17 10:49 Dose: 10 mg Miscellaneous (Meloxicam [Meloxicam]) 15 mg PO DAILY [facility] Stop: 06/14/17 08:59 Miscellaneous (Vte Chemical Prophylaxis Screen/ Admission) 1 ea PRN PRN PRN Reason: PROTOCOL Stop: 06/14/17 11:04 Miscellaneous (Probiotic Screen) 1 ea PRN PRN PRN Reason: PROTOCOL Stop: 06/14/17 15:54 Multivitamins/Vitamin C (Theragran) 1 tab PO DAILY [facility] Stop: 06/14/17 08:59 Last Admin: 04/15/17 10:45 Dose: 1 tab Nitroglycerin (Nitrostat) 0.4 mg SL Q5MIN PRN PRN Reason: Chest Pain Stop: 06/13/17 12:36 Olanzapine (Zyprexa) 5 mg PO HS [facility] PRN Reason: Protocol Stop: 06/13/17 20:59 Ondansetron HCl (Zofran) 4 mg IV Q8H PRN PRN Reason: Nausea / Vomiting Stop: 06/13/17 12:41 Pantoprazole Sodium (Protonix) 40 mg IVP DAILY [facility] Stop: 06/14/17 08:59 Last Admin: 04/15/17 10:46 Dose: 40 mg - Procedures Procedures: Procedures Procedure Code Date GROUP PSYCHOTHERAPY 55010 05/02/15 GROUP PSYCHOTHERAPY GZHZZZZ 05/02/15 OTHER GROUP THERAPY 94.44 10/09/14 RECREATIONAL THERAPY 93.81 07/05/09 Assessment/Plan - Problem List Patient Problems: All Active Problems Aggression (Acute) R45.89 Agitation (Acute) R45.1 Nutritional Asmnt/Malnutr-PDOC - Dietary Evaluation Malnutrition Findings (Please click <Entered> for more info): Nutritional Asmnt/Malnutrition Start: 04/15/17 15: 52 Text: Status: Complete Freq: Document 04/15/17 15:54 GSUN (Rec: 04/15/17 16:01 GSUN [email or web address]) Nutritional Asmnt/Malnutrition Patient General Information Nutritional Screening High Risk Screening Diagnosis Chest pain, bradycardia, lactic acidosis, DM 2 Pertinent Medical Hx/Surgical Hx Stroke, hypercholesterolemia, HTN, dementia, DM type 2 Subjective Information 86 year old female from SNF. Pt was soundly asleep during visit. Pt appeared overweight with some loose skin, no muscle fat wasting noted. Observed breakfast tray 20% finished at time of visit, per RN notes, family came and assisted with meals, which pt finished 75% and noted with good appetite. Spoke to GERALD Gongora, no nutritional concerns , pt possible to be NPO after midnight for pacemake placement. Current Diet Order/ Nutrition Support Cardiac Pertinent Medications D50w, Glutocse 40%, Colace, Glucagen, Novolog, Novolin, Culturelle, Theragran, Zofran, Protonix Pertinent Labs 04/14: A1c 8.9H, glucose 276H 04/15: glucose 201H Nutritional Hx/Data Height 1.65 m Height (Calculated Centimeters) 165.1 Current Weight (lbs) 75.478 kg Weight (Calculated Kilograms) 75.5 Weight (Calculated Grams) 45146.8 [place] Body Weight 125 Weight Status Overweight GI Symptoms Usual diet at home [place] Convacesent: mech soft, finely chopped, JODEE, CCHO Skin Integrity/Comment: [place] 13. right lower leg scar. Estimated Nutritional Goals Calories/Kcals/Kg IBW 125lb/56.8kg Kcals Calculated 1420-1704kcal (25-30kcal/kg) Protein Calculated 57g (1g/kg) Fluid: ml 1420-1704ml (1ml/kcal) Nutritional Problem 1. Problem Problem Altered nutrition related laboratory values related to Etiology DM aeb Signs/Symptoms: A1c 8.9, glucose 276 Intervention/Recommendation Comments 1. Recommend [id number] cardiac. 2. Recommend diet texture downgrade if needed. Pt's diet order mech soft chopped at [facility]. Expected Outcomes/Goals Expected Outcomes/Goals 1. PO intake to meet at least 75% of estimated nutritinoal needs.
--- NOTE | 2017-04-15 17:12 | Cardiology ---
04/15/[address] Chacon. M-MODE ECHOCARDIOGRAM: Mitral valve, anterior leaflet of mitral valve shows normal excursion, EF velocity. Posterior leaflet of the mitral valve shows normal excursion. Left ventricular posterior wall shows increased thickness, normal excursion. Interventricular septum shows increased thickness, normal excursion, hypertrophy of the left ventricle, ejection fraction 50%. Left atrium normal. Aortic root shows normal dimension, sclerosis of aortic leaflets with aortic stenosis. CONCLUSION: Hypertrophy of the left ventricle, aortic stenosis. 2D ECHO: Long axis view showed normal sized left ventricle with hypertrophy of the left ventricle. Left atrium normal. Aortic root shows normal dimension with aortic stenosis. Short axis view of mitral valve normal. Short axis view of aortic valve with aortic stenosis. Apical four chamber view shows normal sized left ventricle with hypertrophy of the left ventricle. Left atrium enlarged. Right ventricular cavity normal. Right atrial enlargement, ejection fraction 50%. CONCLUSION: Left atrial enlargement. Right atrial enlargement. Hypertrophy of the left ventricle, ejection fraction 50%, aortic stenosis with aortic valve area of 0.76 square cm with pressure gradient of 46 mmHg. CONCLUSION: Aortic stenosis, hypertrophy of the left ventricle. Left atrial enlargement, right atrial enlargement. JOB# [id number]
[2017-04-16 04:19] LABS: % BASOPHILS 0.7 % (0.0-2.0); % EOSINOPHILS 0.2 % (0.0-5.0); % LYMPHOCYTES 17.5 % (20.0-50.0); % NEUTROPHILS 71.6 % (40.0-80.0); HEMOGLOBIN 11.4 gm/dL (12-16); MEAN CELL VOLUME 89.6 fl (81-100); MEAN CORPUSCULAR HEMOGLOBIN 30.1 pg (27.0-31.0); MEAN CORPUSCULAR HGB CONC 33.7 pg (28.0-36.0); MEAN PLATELET VOLUME 8.5 fl; PLATELET COUNT 182 Th/cmm (150-400); RED BLOOD COUNT 3.78 Mil/cmm (3.80-5.20); RED CELL DISTRIBUTION WIDTH 12.3 % (11.5-20.0)
[2017-04-16 04:21] LABS: HEMATOCRIT 33.9 % (41.0-60); WHITE BLOOD COUNT 11.2 Th/cmm (4.8-10.8)
[2017-04-16] MEDS: Hydrocodone/APAP 5mg/325mg Tab PO PRN ×2 (04:21→09:00)
[2017-04-16 04:31] LABS: ANION GAP 9.9 (7.0-16.0); BUN - UREA NITROGEN 13 mg/dL (7-25); BUN/CREATININE RATIO 16.3; CALCIUM SERUM 8.5 mg/dL (8.6-10.3); CARBON DIOXIDE 26.7 mEq/L (21.0-31.0); CHLORIDE 98 mEq/L (98-107); CREATININE - SERUM 0.8 mg/dL (0.6-1.2); GLUCOSE 209 mg/dL (70-105); POTASSIUM SERUM 4.6 mEq/L (3.5-5.1); SODIUM SERUM 130 mEq/L (136-145)
[2017-04-16] MEDS: Sodium Chloride 0.9% 1,000 ML IV SCH ×2 (05:43→18:15)
[2017-04-16] MEDS: INSULIN ASPART SLIDING SCALE 100 UNITS/ML UNIT SUBQ SCH ×4 (06:47→21:00)
[2017-04-16] MEDS: INSULIN 70/30 100 UNITS/ML SUBQ SCH (07:30)
--- NOTE | 2017-04-16 08:35 | General Progress Note ---
Subjective - Review of Systems Service Date: 04/16/17 Events since last encounter: PFT still high will rfeschedule for surgery tomorrow Objective - Results Result Diagrams: 04/16/17 03:54 04/16/17 03:54 Recent Labs: Laboratory Last Values WBC 11.2 Th/cmm (4.8-10.8) H D 04/16/17 03:54 RBC 3.78 Mil/cmm (3.80-5.20) L 04/16/17 03:54 Hgb 11.4 gm/dL (12-16) L 04/16/17 03:54 Hct 33.9 % (41.0-60) L D 04/16/17 03:54 MCV 89.6 fl (81-100) 04/16/17 03:54 MCH 30.1 pg (27.0-31.0) 04/16/17 03:54 MCHC Differential 33.7 pg (28.0-36.0) 04/16/17 03:54 RDW 12.3 % (11.5-20.0) 04/16/17 03:54 Plt Count 182 Th/cmm (150-400) 04/16/17 03:54 MPV 8.5 fl 04/16/17 03:54 Neutrophils % 71.6 % (40.0-80.0) 04/16/17 03:54 Lymphocytes % 17.5 % (20.0-50.0) L 04/16/17 03:54 Monocytes % 10.0 % (2.0-10.0) 04/16/17 03:54 Eosinophils % 0.2 % (0.0-5.0) 04/16/17 03:54 Basophils % 0.7 % (0.0-2.0) 04/16/17 03:54 Neutrophils (Manual) 72 % (40-80) 04/14/17 09:29 Lymphocytes 16 % (20-50) L 04/14/17 09:29 Monocytes 8 % (2-10) 04/14/17 09:29 Eosinophils 4 % (0-5) 04/14/17 09:29 PT 11.7 SECONDS (9.5-11.5) H 04/14/17 09:29 INR 1.12 (0.5-1.4) 04/14/17 09:29 PTT (Actin FS) 27.9 SECONDS (26.0-38.0) 04/14/17 09:29 Plt Function Studies SEE COMMENT 04/16/17 03:54 Sodium 130 mEq/L (136-145) L 04/16/17 03:54 Potassium 4.6 mEq/L (3.5-5.1) 04/16/17 03:54 Chloride 98 mEq/L (98-107) 04/16/17 03:54 Carbon Dioxide 26.7 mEq/L (21.0-31.0) 04/16/17 03:54 Anion Gap 9.9 (7.0-16.0) 04/16/17 03:54 BUN 13 mg/dL (7-25) 04/16/17 03:54 Creatinine 0.8 mg/dL (0.6-1.2) 04/16/17 03:54 Est GFR ( Amer) TNP 04/16/17 03:54 Est GFR (Non-Af Amer) TNP 04/16/17 03:54 BUN/Creatinine Ratio 16.3 04/16/17 03:54 Glucose 209 mg/dL (70-105) H 04/16/17 03:54 POC Glucose 261 MG/DL (70 - 105) H 04/15/17 21:38 Hemoglobin A1c % 8.9 % (4.0-6.0) H 04/14/17 09:29 Whole Bld Lactic Acid 2.80 mmol/L (0.60-1.99) H* 04/14/17 11:21 Calcium 8.5 mg/dL (8.6-10.3) L 04/16/17 03:54 Phosphorus 4.3 mg/dL (2.5-5.0) 04/15/17 05:35 Magnesium 2.0 mg/dL (1.9-2.7) 04/16/17 03:54 Total Bilirubin 0.6 mg/dL (0.3-1.0) 04/14/17 09:29 AST 41 U/L (13-39) H 04/14/17 09:29 ALT 58 U/L (7-52) H 04/14/17 09:29 Alkaline Phosphatase 114 U/L (34-104) H 04/14/17 09:29 Ammonia 46 umol/L (16-53) 04/15/17 14:12 Troponin I 0.01 ng/mL (0.01-0.05) 04/14/17 09:29 B-Natriuretic Peptide 203.0 pg/mL (5.0-100.0) H 04/15/17 05:35 Total Protein 6.1 gm/dL (6.0-8.3) 04/14/17 09:29 Albumin 3.8 gm/dL (3.7-5.3) 04/14/17 09:29 Globulin 2.3 gm/dL 04/14/17 09: Albumin/Globulin Ratio 1.7 (1.0-1.8) 04/14/17 09: TSH 1.98 uIU/ml (0.34-5.60) 04/14/17 11:21 Urine Source CATH 04/14/17 10:02 Urine Color YELLOW 04/14/17 10:02 Urine Clarity HAZY (CLEAR) 04/14/17 10:02 Urine pH 6.0 (4.6 - 8.0) 04/14/17 10:02 Ur Specific [place] 1.010 (1.005-1.030) 04/14/17 10:02 Urine Protein NEGATIVE mg/dL (NEGATIVE) 04/14/17 10:02 Urine Glucose (UA) >=1000 mg/dL (NEGATIVE) H 04/14/17 10:02 Urine Ketones TRACE mg/dL (NEGATIVE) 04/14/17 10:02 Urine Blood NEGATIVE (NEGATIVE) 04/14/17 10:02 Urine Nitrate POSITIVE (NEGATIVE) H 04/14/17 10:02 Urine Bilirubin NEGATIVE (NEGATIVE) 04/14/17 10:02 Urine Urobilinogen 0.2 E.U./dL (0.2 - 1.0) 04/14/17 10:02 Ur Leukocyte Esterase NEGATIVE (NEGATIVE) 04/14/17 10:02 Urine RBC 0-2 /hpf (0-5) 04/14/17 10:02 Urine WBC 2-5 /hpf (0-5) 04/14/17 10:02 Ur Epithelial Cells FEW /lpf (FEW) 04/14/17 10:02 Urine Bacteria MANY /hpf (NONE SEEN) 04/14/17 10:02 Blood Type O POSITIVE 04/14/17 09:29 Antibody Screen NEGATIVE 04/14/17 09:29 - Physical Exam Vitals and I&O: Vital Signs Temp 97.6 F 04/16/17 04:00 Pulse 79 04/16/17 06:55 Resp 15 04/16/17 06:55 BP 140/99 04/16/17 06:55 Pulse Ox 98 04/16/17 06:55 Intake & Output 04/15/17 04/16/17 04/16/17 18:59 06:59 18:59 Intake Total 500 1300 Output Total 1200 700 Balance -700 600 Weight (lbs) 75.478 kg 76.374 kg Intake: Intake, IV Amount 100 1000 Levofloxacin 500mg/100mL 100 500 mg In 100 ml @ 100 mls/hr IV Q24HR [facility] Rx#: [id number] Sodium Chloride 0.9% 1, 1000 000 ml @ 60 mls/hr IV . [id number] [facility] Rx#:[id number] Oral 400 300 Output: Urine 1200 700 Stool 0 Active Medications: Current Medications Acetaminophen (Tylenol) 650 mg PO Q4HR PRN PRN Reason: Mild Pain Or Fever above 101 Stop: 06/13/17 12:41 Last Admin: 04/14/17 15:18 Dose: 650 mg Acetaminophen/Hydrocodone Bitart ([place] 5mg/325mg) 1 tab PO Q8H PRN PRN Reason: moderate pain Stop: 06/13/17 12:36 Last Admin: 04/16/17 04:21 Dose: 1 tab Albuterol Sulfate (Albuterol 2.5mg/3ml Neb Ud) 2.5 mg IH Q2HR PRN PRN Reason: Shortness of Breath or Wheeze Stop: 06/13/17 12:41 Atropine Sulfate (Atropine Syringe) 1 mg IVP Q4H PRN PRN Reason: HR below40 Stop: 06/13/17 12:59 Last Admin: 04/14/17 21:05 Dose: 1 mg Captopril (Capoten 25 Mg Tab) 50 mg PO BID [facility] Stop: 06/13/17 16:59 Last Admin: 04/15/17 19:20 Dose: Not Given Dextromethorphan/Quinidine (Nuedexta 20mg-10mg) 1 cap PO BID [facility] Stop: 06/13/17 16:59 Last Admin: 04/15/17 18:01 Dose: 1 cap Dextrose (D50w) 50 ml IVP PRN PRN PRN Reason: Blood Glucose less than 70 Stop: 06/13/17 21:00 Dextrose (Glutose 40%) 18.75 gm PO PRN PRN PRN Reason: Blood Glucose less than 70 Stop: 06/13/17 21:00 Docusate Sodium (Colace) 250 mg PO DAILY [facility] Stop: 06/14/17 08:59 Last Admin: 04/15/17 10:45 Dose: 250 mg Donepezil HCl (Aricept) 10 mg PO HS [facility] Stop: 06/13/17 20:59 Last Admin: 04/15/17 20:39 Dose: 10 mg Glucagon (Glucagen) 1 mg IM PRN PRN PRN Reason: Blood Glucose less than 70 Stop: 06/13/17 21:00 Guaifenesin (Robitussin) 100 mg PO Q4H PRN PRN Reason: Cough or Congestion Stop: 06/13/17 12:41 Levofloxacin (Levaquin Pb) 500 mg in 100 mls @ 100 mls/hr IV Q24HR [facility] Stop: 06/13/17 13:59 Last Infusion: 04/15/17 15:35 Dose: Infused Sodium Chloride (Nacl 0.9%) 1,000 mls @ 60 mls/hr IV .[id number] [facility] Stop: 06/13/17 12:44 Last Admin: 04/16/17 05:43 Dose: 60 mls/hr Insulin Aspart (Novolog Insulin Sliding Scale) 0 units SUBQ ACHS [facility] PRN Reason: Protocol Stop: 06/13/17 16:29 Last Admin: 04/16/17 06:47 Dose: Not Given Insulin Human Isoph/Insulin Regular (Novolin 70/30) 20 units SUBQ QDAC [facility] Stop: 06/15/17 07:29 Ipratropium [place] (Atrovent Neb 0.5mg/2.5ml) 0.5 mg IH Q2HR PRN PRN Reason: Shortness of Breath or Wheeze Stop: 06/13/17 12:41 Lactobacillus Rhamnosus (Culturelle) 1 each PO DAILY [facility] Stop: 06/14/17 08:59 Last Admin: 04/15/17 10:46 Dose: 1 each Loratadine (Claritin) 10 mg PO DAILY [facility] Stop: 06/14/17 08:59 Last Admin: 04/15/17 10:45 Dose: 10 mg Memantine (Namenda) 10 mg PO BID [facility] Stop: 06/13/17 16:59 Last Admin: 04/15/17 18:01 Dose: 10 mg Miscellaneous (Meloxicam [Meloxicam]) 15 mg PO DAILY [facility] Stop: 06/14/17 08:59 Miscellaneous (Vte Chemical Prophylaxis Screen/ Admission) 1 ea PRN PRN PRN Reason: PROTOCOL Stop: 06/14/17 11:04 Miscellaneous (Probiotic Screen) 1 ea PRN PRN PRN Reason: PROTOCOL Stop: 06/14/17 15:54 Multivitamins/Vitamin C (Theragran) 1 tab PO DAILY [facility] Stop: 06/14/17 08:59 Last Admin: 04/15/17 10:45 Dose: 1 tab Nitroglycerin (Nitrostat) 0.4 mg SL Q5MIN PRN PRN Reason: Chest Pain Stop: 06/13/17 12:36 Olanzapine (Zyprexa) 5 mg PO HS [facility] PRN Reason: Protocol Stop: 06/13/17 20:59 Last Admin: 04/15/17 20:39 Dose: 5 mg Ondansetron HCl (Zofran) 4 mg IV Q8H PRN PRN Reason: Nausea / Vomiting Stop: 06/13/17 12:41 Pantoprazole Sodium (Protonix) 40 mg IVP DAILY [facility] Stop: 06/14/17 08:59 Last Admin: 04/15/17 10:46 Dose: 40 mg - Procedures Procedures: Procedures Procedure Code Date GROUP PSYCHOTHERAPY 27730 05/02/15 GROUP PSYCHOTHERAPY GZHZZZZ 05/02/15 OTHER GROUP THERAPY 94.44 10/09/14 RECREATIONAL THERAPY 93.81 07/05/09 Assessment/Plan - Problem List Patient Problems: All Active Problems Aggression (Acute) R45.89 Agitation (Acute) R45.1 Nutritional Asmnt/Malnutr-PDOC - Dietary Evaluation Malnutrition Findings (Please click <Entered> for more info): Nutritional Asmnt/Malnutrition Start: 04/15/17 15: 52 Text: Status: Complete Freq: Document 04/15/17 15:54 GSUN (Rec: 04/15/17 16:01 GSCAROLYNN [email or web address]) Nutritional Asmnt/Malnutrition Patient General Information Nutritional Screening High Risk Screening Diagnosis Chest pain, bradycardia, lactic acidosis, DM 2 Pertinent Medical Hx/Surgical Hx Stroke, hypercholesterolemia, HTN, dementia, DM type 2 Subjective Information 86 year old female from SNF. Pt was soundly asleep during visit. Pt appeared overweight with some loose skin, no muscle fat wasting noted. Observed breakfast tray 20% finished at time of visit, per RN notes, family came and assisted with meals, which pt finished 75% and noted with good appetite. Spoke to GERALD Gongora, no nutritional concerns , pt possible to be NPO after midnight for pacemake placement. Current Diet Order/ Nutrition Support Cardiac Pertinent Medications D50w, Glutocse 40%, Colace, Glucagen, Novolog, Novolin, Culturelle, Theragran, Zofran, Protonix Pertinent Labs 04/14: A1c 8.9H, glucose 276H 04/15: glucose 201H Nutritional Hx/Data Height 1.65 m Height (Calculated Centimeters) 165.1 Current Weight (lbs) 75.478 kg Weight (Calculated Kilograms) 75.5 Weight (Calculated Grams) 15934.8 [place] Body Weight 125 Weight Status Overweight GI Symptoms Usual diet at home [place] Convacesent: mech soft, finely chopped, JODEE, CCHO Skin Integrity/Comment: Tunde 13. right lower leg scar. Estimated Nutritional Goals Calories/Kcals/Kg IBW 125lb/56.8kg Kcals Calculated 1420-1704kcal (25-30kcal/kg) Protein Calculated 57g (1g/kg) Fluid: ml 1420-1704ml (1ml/kcal) Nutritional Problem 1. Problem Problem Altered nutrition related laboratory values related to Etiology DM aeb Signs/Symptoms: A1c 8.9, glucose 276 Intervention/Recommendation Comments 1. Recommend [id number] cardiac. 2. Recommend diet texture downgrade if needed. Pt's diet order mech soft chopped at [facility]. Expected Outcomes/Goals Expected Outcomes/Goals 1. PO intake to meet at least 75% of estimated nutritinoal needs.
[2017-04-16] MEDS: MED PO SCH ×2 (09:00→17:00)
[2017-04-16] MEDS: Dextromethorphan/Quinidine 20mg/10mg Cap PO SCH ×2 (11:10→17:25)
[2017-04-16] MEDS: Multivitamin Tab PO SCH (11:18)
[2017-04-16] MEDS: Lactobacillus Rhamnosus 10 Billion CFU Capsule PO SCH (11:32)
--- NOTE | 2017-04-16 13:09 | Consultation ---
DATE OF CONSULTATION: 04/15/2017 REFERRING PHYSICIAN: Dr. Hang Ellison/Dr. Chacon. REASON FOR CONSULTATION: Severe bradycardia. Thank you for referring this patient to me. HISTORY OF PRESENT ILLNESS: The patient is an 86-year-old female admitted through Emergency Room because of weakness. The patient was found to have severe bradycardia in the 30s with third-degree heart block. PAST MEDICAL HISTORY: Includes CVA, hyperlipidemia, hypertension, dementia, anemia, and diabetes mellitus. LABORATORY STUDIES: On admission, the CBC was normal. Blood sugar was 201. BUN and creatinine were normal. The chest x-ray showed increased markings suggestive of chronic lung changes with no consolidation. Consultation by Cardiology, Dr. Hang Ellison, was made and recommendation for placement of dual-chamber pacemaker was made. The echocardiogram showed right atrial enlargement and left atrial enlargement, hypertrophy of left ventricle with ejection fraction of 50%. PHYSICAL EXAMINATION: The patient is obese, speaks only Telugu. The son was at bedside in the Emergency Room and informed consent discussed with him regarding the possible complications of the procedure. The patient is on Plavix and will have to wait until platelet function test comes back to normal levels. Complications could include bleeding, infection, dislodgement of catheter, pneumothorax, ____ is to be done if no adequate cephalic vein is identifiable. The son understands and will proceed with plans for the pacemaker placement. JOB# [id number]
--- NOTE | 2017-04-16 13:52 | Internal Medicine Prog Note ---
Internal Medicine Subjective - Subjective Service Date: 04/16/17 (patient c/o chest pain , patient was given nitro this morning) Patient is:: awake, verbal Per staff patient has:: no adverse event, tolerating meds Internal Medicine Objective - Results Result Diagrams: 04/16/17 03:54 04/16/17 03:54 Recent Labs: Laboratory Last Values WBC 11.2 Th/cmm (4.8-10.8) H D 04/16/17 03:54 RBC 3.78 Mil/cmm (3.80-5.20) L 04/16/17 03:54 Hgb 11.4 gm/dL (12-16) L 04/16/17 03:54 Hct 33.9 % (41.0-60) L D 04/16/17 03:54 MCV 89.6 fl (81-100) 04/16/17 03:54 MCH 30.1 pg (27.0-31.0) 04/16/17 03:54 MCHC Differential 33.7 pg (28.0-36.0) 04/16/17 03:54 RDW 12.3 % (11.5-20.0) 04/16/17 03:54 Plt Count 182 Th/cmm (150-400) 04/16/17 03:54 MPV 8.5 fl 04/16/17 03:54 Neutrophils % 71.6 % (40.0-80.0) 04/16/17 03:54 Lymphocytes % 17.5 % (20.0-50.0) L 04/16/17 03:54 Monocytes % 10.0 % (2.0-10.0) 04/16/17 03:54 Eosinophils % 0.2 % (0.0-5.0) 04/16/17 03:54 Basophils % 0.7 % (0.0-2.0) 04/16/17 03:54 Neutrophils (Manual) 72 % (40-80) 04/14/17 09:29 Lymphocytes 16 % (20-50) L 04/14/17 09:29 Monocytes 8 % (2-10) 04/14/17 09:29 Eosinophils 4 % (0-5) 04/14/17 09:29 PT 11.7 SECONDS (9.5-11.5) H 04/14/17 09:29 INR 1.12 (0.5-1.4) 04/14/17 09:29 PTT (Actin FS) 27.9 SECONDS (26.0-38.0) 04/14/17 09:29 Plt Function Studies SEE COMMENT 04/16/17 03:54 Sodium 130 mEq/L (136-145) L 04/16/17 03:54 Potassium 4.6 mEq/L (3.5-5.1) 04/16/17 03:54 Chloride 98 mEq/L (98-107) 04/16/17 03:54 Carbon Dioxide 26.7 mEq/L (21.0-31.0) 04/16/17 03:54 Anion Gap 9.9 (7.0-16.0) 04/16/17 03:54 BUN 13 mg/dL (7-25) 04/16/17 03:54 Creatinine 0.8 mg/dL (0.6-1.2) 04/16/17 03:54 Est GFR ( Amer) TNP 04/16/17 03:54 Est GFR (Non-Af Amer) TNP 04/16/17 03:54 BUN/Creatinine Ratio 16.3 04/16/17 03:54 Glucose 209 mg/dL (70-105) H 04/16/17 03:54 POC Glucose 268 MG/DL (70 - 105) H 04/16/17 11:40 Hemoglobin A1c % 8.9 % (4.0-6.0) H 04/14/17 09:29 Whole Bld Lactic Acid 2.80 mmol/L (0.60-1.99) H* 04/14/17 11:21 Calcium 8.5 mg/dL (8.6-10.3) L 04/16/17 03:54 Phosphorus 4.3 mg/dL (2.5-5.0) 04/15/17 05:35 Magnesium 2.0 mg/dL (1.9-2.7) 04/16/17 03:54 Total Bilirubin 0.6 mg/dL (0.3-1.0) 04/14/17 09:29 AST 41 U/L (13-39) H 04/14/17 09:29 ALT 58 U/L (7-52) H 04/14/17 09:29 Alkaline Phosphatase 114 U/L (34-104) H 04/14/17 09:29 Ammonia 46 umol/L (16-53) 04/15/17 14:12 Troponin I 0.01 ng/mL (0.01-0.05) 04/14/17 09: B-Natriuretic Peptide 203.0 pg/mL (5.0-100.0) H 04/15/17 05:35 Total Protein 6.1 gm/dL (6.0-8.3) 04/14/17 09:29 Albumin 3.8 gm/dL (3.7-5.3) 04/14/17 09:29 Globulin 2.3 gm/dL 04/14/17 09: Albumin/Globulin Ratio 1.7 (1.0-1.8) 04/14/17 09: TSH 1.98 uIU/ml (0.34-5.60) 04/14/17 11:21 Urine Source CATH 04/14/17 10:02 Urine Color YELLOW 04/14/17 10:02 Urine Clarity HAZY (CLEAR) 04/14/17 10:02 Urine pH 6.0 (4.6 - 8.0) 04/14/17 10:02 Ur Specific [place] 1.010 (1.005-1.030) 04/14/17 10:02 Urine Protein NEGATIVE mg/dL (NEGATIVE) 04/14/17 10:02 Urine Glucose (UA) >=1000 mg/dL (NEGATIVE) H 04/14/17 10:02 Urine Ketones TRACE mg/dL (NEGATIVE) 04/14/17 10:02 Urine Blood NEGATIVE (NEGATIVE) 04/14/17 10:02 Urine Nitrate POSITIVE (NEGATIVE) H 04/14/17 10:02 Urine Bilirubin NEGATIVE (NEGATIVE) 04/14/17 10:02 Urine Urobilinogen 0.2 E.U./dL (0.2 - 1.0) 04/14/17 10:02 Ur Leukocyte Esterase NEGATIVE (NEGATIVE) 04/14/17 10:02 Urine RBC 0-2 /hpf (0-5) 04/14/17 10:02 Urine WBC 2-5 /hpf (0-5) 04/14/17 10:02 Ur Epithelial Cells FEW /lpf (FEW) 04/14/17 10:02 Urine Bacteria MANY /hpf (NONE SEEN) 04/14/17 10:02 Blood Type O POSITIVE 04/14/17 09:29 Antibody Screen NEGATIVE 04/14/17 09:29 - Physical Exam Vitals and I&O: Vital Signs Temp 97.1 F 04/16/17 12:00 Pulse 48 04/16/17 12:00 Resp 17 04/16/17 12:00 BP 128/54 04/16/17 12:00 Pulse Ox 96 04/16/17 12:00 Intake & Output 04/15/17 04/16/17 04/16/17 18:59 06:59 18:59 Intake Total 500 1300 Output Total 1200 700 Balance -700 600 Weight (lbs) 166 lb 6.4 oz 168 lb 6 oz Intake: Intake, IV Amount 100 1000 Levofloxacin 500mg/100mL 100 500 mg In 100 ml @ 100 mls/hr IV Q24HR [facility] Rx#: [id number] Sodium Chloride 0.9% 1, 1000 000 ml @ 60 mls/hr IV . [id number] [facility] Rx#:[id number] Oral 400 300 Output: Urine 1200 700 Stool 0 Active Medications: Current Medications Acetaminophen (Tylenol) 650 mg PO Q4HR PRN PRN Reason: Mild Pain Or Fever above 101 Stop: 06/13/17 12:41 Last Admin: 04/14/17 15:18 Dose: 650 mg Acetaminophen/Hydrocodone Bitart ([place] 5mg/325mg) 1 tab PO Q8H PRN PRN Reason: moderate pain Stop: 06/13/17 12:36 Last Admin: 04/16/17 09:00 Dose: 1 tab Albuterol Sulfate (Albuterol 2.5mg/3ml Neb Ud) 2.5 mg IH Q2HR PRN PRN Reason: Shortness of Breath or Wheeze Stop: 06/13/17 12:41 Atropine Sulfate (Atropine Syringe) 1 mg IVP Q4H PRN PRN Reason: HR below40 Stop: 06/13/17 12:59 Last Admin: 04/14/17 21:05 Dose: 1 mg Captopril (Capoten 25 Mg Tab) 50 mg PO BID [facility] Stop: 06/13/17 16:59 Last Admin: 04/15/17 19:20 Dose: Not Given Dextromethorphan/Quinidine (Nuedexta 20mg-10mg) 1 cap PO BID [facility] Stop: 06/13/17 16:59 Last Admin: 04/16/17 11:10 Dose: 1 cap Dextrose (D50w) 50 ml IVP PRN PRN PRN Reason: Blood Glucose less than 70 Stop: 06/13/17 21:00 Dextrose (Glutose 40%) 18.75 gm PO PRN PRN PRN Reason: Blood Glucose less than 70 Stop: 06/13/17 21:00 Diclofenac Sodium (Voltaren) 25 mg PO BID [facility] Stop: 06/15/17 08:59 Docusate Sodium (Colace) 250 mg PO DAILY [facility] Stop: 06/14/17 08:59 Last Admin: 04/15/17 10:45 Dose: 250 mg Donepezil HCl (Aricept) 10 mg PO HS [facility] Stop: 06/13/17 20:59 Last Admin: 04/15/17 20:39 Dose: 10 mg Glucagon (Glucagen) 1 mg IM PRN PRN PRN Reason: Blood Glucose less than 70 Stop: 06/13/17 21:00 Guaifenesin (Robitussin) 100 mg PO Q4H PRN PRN Reason: Cough or Congestion Stop: 06/13/17 12:41 Levofloxacin (Levaquin Pb) 500 mg in 100 mls @ 100 mls/hr IV Q24HR [facility] Stop: 06/13/17 13:59 Last Infusion: 04/15/17 15:35 Dose: Infused Sodium Chloride (Nacl 0.9%) 1,000 mls @ 60 mls/hr IV .[id number] [facility] Stop: 06/13/17 12:44 Last Admin: 04/16/17 05:43 Dose: 60 mls/hr Insulin Aspart (Novolog Insulin Sliding Scale) 0 units SUBQ ACHS [facility] PRN Reason: Protocol Stop: 06/13/17 16:29 Last Admin: 04/16/17 11:41 Dose: 7 units Insulin Human Isoph/Insulin Regular (Novolin 70/30) 20 units SUBQ QDAC [facility] Stop: 06/15/17 07:29 Last Admin: 04/16/17 07:30 Dose: Not Given Ipratropium [place] (Atrovent Neb 0.5mg/2.5ml) 0.5 mg IH Q2HR PRN PRN Reason: Shortness of Breath or Wheeze Stop: 06/13/17 12:41 Lactobacillus Rhamnosus (Culturelle) 1 each PO DAILY [facility] Stop: 06/14/17 08:59 Last Admin: 04/16/17 11:32 Dose: 1 each Loratadine (Claritin) 10 mg PO DAILY [facility] Stop: 06/14/17 08:59 Last Admin: 04/16/17 11:18 Dose: 10 mg Memantine (Namenda) 10 mg PO BID [facility] Stop: 06/13/17 16:59 Last Admin: 04/16/17 11:19 Dose: 10 mg Miscellaneous (Vte Chemical Prophylaxis Screen/ Admission) 1 ea MC PRN PRN PRN Reason: PROTOCOL Stop: 06/14/17 11:04 Miscellaneous (Probiotic Screen) 1 ea PRN PRN PRN Reason: PROTOCOL Stop: 06/14/17 15:54 Multivitamins/Vitamin C (Theragran) 1 tab PO DAILY [facility] Stop: 06/14/17 08:59 Last Admin: 04/16/17 11:18 Dose: 1 tab Nitroglycerin (Nitrostat) 0.4 mg SL Q5MIN PRN PRN Reason: Chest Pain Stop: 06/13/17 12:36 Olanzapine (Zyprexa) 5 mg PO HS [facility] PRN Reason: Protocol Stop: 06/13/17 20:59 Last Admin: 04/15/17 20:39 Dose: 5 mg Ondansetron HCl (Zofran) 4 mg IV Q8H PRN PRN Reason: Nausea / Vomiting Stop: 06/13/17 12:41 Pantoprazole Sodium (Protonix) 40 mg IVP DAILY [facility] Stop: 06/14/17 08:59 Last Admin: 04/16/17 09:00 Dose: 40 mg General: weak, alert HEENT: NC/AT, PERRLA Neck: Supple, No JVD Lungs: CTAB Cardiovascular: mercedes Abdomen: soft, non-tender, non-distended, positive bowel sound Extremities: excoriation Neurological: alert - Procedures Procedures: Procedures Procedure Code Date GROUP PSYCHOTHERAPY 60144 05/02/15 GROUP PSYCHOTHERAPY GZHZZZZ 05/02/15 OTHER GROUP THERAPY 94.44 10/09/14 RECREATIONAL THERAPY 93.81 07/05/09 Internal Medicine Assmt/Plan - Assessment Assessment: Chest Pain Bradycardia Lactic acidosis Acute UTI dementia htn dm-2 hyponatremia - Plan Plan: consult Dr. Jose icu monitoring pacemaker placement continue external pacemaker continue current tx Nutritional Asmnt/Malnutr-PDOC - Dietary Evaluation Malnutrition Findings (Please click <Entered> for more info): Nutritional Asmnt/Malnutrition Start: 04/15/17 15: 52 Text: Status: Complete Freq: Document 04/15/17 15:54 GSCAROLYNN (Rec: 04/15/17 16:01 GSCAROLYNN [email or web address]) Nutritional Asmnt/Malnutrition Patient General Information Nutritional Screening High Risk Screening Diagnosis Chest pain, bradycardia, lactic acidosis, DM 2 Pertinent Medical Hx/Surgical Hx Stroke, hypercholesterolemia, HTN, dementia, DM type 2 Subjective Information 86 year old female from SNF. Pt was soundly asleep during visit. Pt appeared overweight with some loose skin, no muscle fat wasting noted. Observed breakfast tray 20% finished at time of visit, per RN notes, family came and assisted with meals, which pt finished 75% and noted with good appetite. Spoke to GERALD Gongora, no nutritional concerns , pt possible to be NPO after midnight for pacemake placement. Current Diet Order/ Nutrition Support Cardiac Pertinent Medications D50w, Glutocse 40%, Colace, Glucagen, Novolog, Novolin, Culturelle, Theragran, Zofran, Protonix Pertinent Labs 04/14: A1c 8.9H, glucose 276H 04/15: glucose 201H Nutritional Hx/Data Height 5 ft 5 in Height (Calculated Centimeters) 165.1 Current Weight (lbs) 166 lb 6.4 oz Weight (Calculated Kilograms) 75.5 Weight (Calculated Grams) 67479.8 Kermit Body Weight 125 Weight Status Overweight GI Symptoms Usual diet at home [place] Convacesent: mech soft, finely chopped, JODEE, CCHO Skin Integrity/Comment: Tunde 13. right lower leg scar. Estimated Nutritional Goals Calories/Kcals/Kg IBW 125lb/56.8kg Kcals Calculated 1420-1704kcal (25-30kcal/kg) Protein Calculated 57g (1g/kg) Fluid: ml 1420-1704ml (1ml/kcal) Nutritional Problem 1. Problem Problem Altered nutrition related laboratory values related to Etiology DM aeb Signs/Symptoms: A1c 8.9, glucose 276 Intervention/Recommendation Comments 1. Recommend [id number] cardiac. 2. Recommend diet texture downgrade if needed. Pt's diet order mech soft chopped at [facility]. Expected Outcomes/Goals Expected Outcomes/Goals 1. PO intake to meet at least 75% of estimated nutritinoal needs.
[2017-04-16] MEDS: Levofloxacin 500mg/100mL 500 MG/100 ML BAG IV SCH (18:20)
[2017-04-16] MEDS ORDERED: Morphine Sulfate 2 mg/mL 1mL Syr IVP PRN (21:42)
[2017-04-17 04:40] LABS: % BASOPHILS 0.2 % (0.0-2.0); % EOSINOPHILS 0.3 % (0.0-5.0); % MONOCYTES 9.4 % (2.0-10.0); % NEUTROPHILS 78.1 % (40.0-80.0); HEMATOCRIT 32.2 % (41.0-60); HEMOGLOBIN 11.1 gm/dL (12-16); MEAN CELL VOLUME 90.2 fl (81-100); MEAN CORPUSCULAR HEMOGLOBIN 31.1 pg (27.0-31.0); MEAN CORPUSCULAR HGB CONC 34.5 pg (28.0-36.0); MEAN PLATELET VOLUME 8.5 fl; NEUTROPHILE ABSOLUTE 7.5 Th/cmm (1.8-8.0); PLATELET COUNT 182 Th/cmm (150-400); RED BLOOD COUNT 3.57 Mil/cmm (3.80-5.20); RED CELL DISTRIBUTION WIDTH 12.9 % (11.5-20.0); WHITE BLOOD COUNT 9.6 Th/cmm (4.8-10.8)
[2017-04-17 04:48] LABS: ANION GAP 9.1 (7.0-16.0); BUN - UREA NITROGEN 13 mg/dL (7-25); BUN/CREATININE RATIO 18.6; CALCIUM SERUM 8.5 mg/dL (8.6-10.3); CARBON DIOXIDE 27.3 mEq/L (21.0-31.0); CHLORIDE 100 mEq/L (98-107); CREATININE - SERUM 0.7 mg/dL (0.6-1.2); GLUCOSE 225 mg/dL (70-105); POTASSIUM SERUM 4.4 mEq/L (3.5-5.1); SODIUM SERUM 132 mEq/L (136-145)
[2017-04-17 05:09] LABS: INR 1.09 (0.5-1.4); PROTHROMBIN TIME (TEST) 11.3 SECONDS (9.5-11.5)
[2017-04-17] MEDS: INSULIN ASPART SLIDING SCALE 100 UNITS/ML UNIT SUBQ SCH ×4 (08:00→21:28)
[2017-04-17] MEDS: Dextromethorphan/Quinidine 20mg/10mg Cap PO SCH ×2 (09:01→16:16)
[2017-04-17] MEDS: MED PO SCH ×2 (09:01→16:15)
[2017-04-17] MEDS: Lactobacillus Rhamnosus 10 Billion CFU Capsule PO SCH (09:01)
[2017-04-17] MEDS: Multivitamin Tab PO SCH (09:02)
[2017-04-17] MEDS: INSULIN 70/30 100 UNITS/ML SUBQ SCH (09:58)
[2017-04-17] MEDS ORDERED: IOHEXOL 350mg/mL 150mL IV ONE (11:00)
--- NOTE | 2017-04-17 11:44 | Internal Medicine Prog Note ---
Internal Medicine Subjective - Subjective Service Date: 04/17/17 Patient seen and examined:: with staff Patient is:: awake, verbal, in bed Per staff patient has:: no adverse event, tolerating meds Internal Medicine Objective - Results Result Diagrams: 04/17/17 04:26 04/17/17 04:26 Recent Labs: Laboratory Last Values WBC 9.6 Th/cmm (4.8-10.8) 04/17/17 04:26 RBC 3.57 Mil/cmm (3.80-5.20) L 04/17/17 04:26 Hgb 11.1 gm/dL (12-16) L 04/17/17 04:26 Hct 32.2 % (41.0-60) L 04/17/17 04:26 MCV 90.2 fl (81-100) 04/17/17 04:26 MCH 31.1 pg (27.0-31.0) H 04/17/17 04: MCHC Differential 34.5 pg (28.0-36.0) 04/17/17 04:26 RDW 12.9 % (11.5-20.0) 04/17/17 04:26 Plt Count 182 Th/cmm (150-400) 04/17/17 04:26 MPV 8.5 fl 04/17/17 04:26 Neutrophils % 78.1 % (40.0-80.0) 04/17/17 04:26 Lymphocytes % 12.0 % (20.0-50.0) L 04/17/17 04:26 Monocytes % 9.4 % (2.0-10.0) 04/17/17 04:26 Eosinophils % 0.3 % (0.0-5.0) 04/17/17 04:26 Basophils % 0.2 % (0.0-2.0) 04/17/17 04:26 Neutrophils (Manual) 72 % (40-80) 04/14/17: Lymphocytes 16 % (20-50) L 04/14/17 09: Monocytes 8 % (2-10) 04/14/17 09: Eosinophils 4 % (0-5) 04/14/17 09: Plt Count 182 Th/cmm (150-750) 04/17/17 04:26 PT 11.3 SECONDS (9.5-11.5) 04/17/17 04:26 INR 1.09 (0.5-1.4) 04/17/17 04:26 PTT (Actin FS) 26.6 SECONDS (26.0-38.0) 04/17/17 04:26 Fibrinogen 500.0 mg/dL (200.0-400.0) H 04/17/17 04:26 D-Dimer 2160 ng/mL (100-400) H 04/17/17 04:26 Plt Function Studies SEE COMMENT 04/17/17 04:26 Sodium 132 mEq/L (136-145) L 04/17/17 04:26 Potassium 4.4 mEq/L (3.5-5.1) 04/17/17 04:26 Chloride 100 mEq/L (98-107) 04/17/17 04:26 Carbon Dioxide 27.3 mEq/L (21.0-31.0) 04/17/17 04:26 Anion Gap 9.1 (7.0-16.0) 04/17/17 04:26 BUN 13 mg/dL (7-25) 04/17/17 04:26 Creatinine 0.7 mg/dL (0.6-1.2) 04/17/17 04:26 Est GFR ( Amer) TNP 04/17/17 04:26 Est GFR (Non-Af Amer) TNP 04/17/17 04:26 BUN/Creatinine Ratio 18.6 04/17/17 04:26 Glucose 225 mg/dL (70-105) H 04/17/17 04:26 POC Glucose 234 MG/DL (70 - 105) H 04/17/17 06:35 Hemoglobin A1c % 8.9 % (4.0-6.0) H 04/14/17 09:29 Whole Bld Lactic Acid 2.80 mmol/L (0.60-1.99) H* 04/14/17 11:21 Calcium 8.5 mg/dL (8.6-10.3) L 04/17/17 04:26 Phosphorus 4.3 mg/dL (2.5-5.0) 04/15/17 05:35 Magnesium 2.0 mg/dL (1.9-2.7) 04/17/17 04:26 Total Bilirubin 0.6 mg/dL (0.3-1.0) 04/14/17 09: AST 41 U/L (13-39) H 04/14/17 09:29 ALT 58 U/L (7-52) H 04/14/17 09:29 Alkaline Phosphatase 114 U/L (34-104) H 04/14/17 09: Ammonia 46 umol/L (16-53) 04/15/17 14:12 Troponin I 0.01 ng/mL (0.01-0.05) 04/14/17 09: B-Natriuretic Peptide 576.0 pg/mL (5.0-100.0) H 04/17/17 04:26 Total Protein 6.1 gm/dL (6.0-8.3) 04/14/17 09: Albumin 3.8 gm/dL (3.7-5.3) 04/14/17 09: Globulin 2.3 gm/dL 04/14/17 09: Albumin/Globulin Ratio 1.7 (1.0-1.8) 04/14/17 09: TSH 1.98 uIU/ml (0.34-5.60) 04/14/17 11:21 Urine Source CATH 04/14/17 10:02 Urine Color YELLOW 04/14/17 10:02 Urine Clarity HAZY (CLEAR) 04/14/17 10:02 Urine pH 6.0 (4.6 - 8.0) 04/14/17 10:02 Ur Specific Spurger 1.010 (1.005-1.030) 04/14/17 10:02 Urine Protein NEGATIVE mg/dL (NEGATIVE) 04/14/17 10:02 Urine Glucose (UA) >=1000 mg/dL (NEGATIVE) H 04/14/17 10:02 Urine Ketones TRACE mg/dL (NEGATIVE) 04/14/17 10:02 Urine Blood NEGATIVE (NEGATIVE) 04/14/17 10:02 Urine Nitrate POSITIVE (NEGATIVE) H 04/14/17 10:02 Urine Bilirubin NEGATIVE (NEGATIVE) 04/14/17 10:02 Urine Urobilinogen 0.2 E.U./dL (0.2 - 1.0) 04/14/17 10:02 Ur Leukocyte Esterase NEGATIVE (NEGATIVE) 04/14/17 10:02 Urine RBC 0-2 /hpf (0-5) 04/14/17 10:02 Urine WBC 2-5 /hpf (0-5) 04/14/17 10:02 Ur Epithelial Cells FEW /lpf (FEW) 04/14/17 10:02 Urine Bacteria MANY /hpf (NONE SEEN) 04/14/17 10:02 Blood Type O POSITIVE 04/14/17 09:29 Antibody Screen NEGATIVE 04/14/17 09:29 - Physical Exam Vitals and I&O: Vital Signs Temp 98.4 F 04/17/17 08:00 Pulse 60 04/17/17 09:01 Resp 18 04/17/17 09:00 BP 155/51 04/17/17 09:01 Pulse Ox 95 04/17/17 09:00 Intake & Output 04/16/17 04/17/17 04/17/17 18:59 06:59 18:59 Intake Total 1252 640 Output Total 650 1600 Balance 602 -960 Weight (lbs) 168 lb 6 oz 173 lb Intake: Intake, IV Amount 752 520 Levofloxacin 500mg/100mL 100 500 mg In 100 ml @ 100 mls/hr IV Q24HR [facility] Rx#: [id number] Sodium Chloride 0.9% 1, 752 420 000 ml @ 60 mls/hr IV . [id number] [facility] Rx#:[id number] Oral 500 120 Output: Urine 650 1600 Active Medications: Current Medications Acetaminophen (Tylenol) 650 mg PO Q4HR PRN PRN Reason: Mild Pain Or Fever above 101 Stop: 06/13/17 12:41 Last Admin: 04/17/17 06:12 Dose: 650 mg Acetaminophen/Hydrocodone Bitart (Kake 5mg/325mg) 1 tab PO Q8H PRN PRN Reason: moderate pain Stop: 06/13/17 12:36 Last Admin: 04/16/17 09:00 Dose: 1 tab Albuterol Sulfate (Albuterol 2.5mg/3ml Neb Ud) 2.5 mg IH Q2HR PRN PRN Reason: Shortness of Breath or Wheeze Stop: 06/13/17 12:41 Atropine Sulfate (Atropine Syringe) 1 mg IVP Q4H PRN PRN Reason: HR below40 Stop: 06/13/17 12:59 Last Admin: 04/14/17 21:05 Dose: 1 mg Captopril (Capoten 25 Mg Tab) 50 mg PO BID [facility] Stop: 06/13/17 16:59 Last Admin: 04/17/17 09:01 Dose: Not Given Dextromethorphan/Quinidine (Nuedexta 20mg-10mg) 1 cap PO BID [facility] Stop: 06/13/17 16:59 Last Admin: 04/17/17 09:01 Dose: Not Given Dextrose (D50w) 50 ml IVP PRN PRN PRN Reason: Blood Glucose less than 70 Stop: 06/13/17 21:00 Dextrose (Glutose 40%) 18.75 gm PO PRN PRN PRN Reason: Blood Glucose less than 70 Stop: 06/13/17 21:00 Diclofenac Sodium (Voltaren) 25 mg PO BID [facility] Stop: 06/15/17 08:59 Last Admin: 04/17/17 09:01 Dose: Not Given Docusate Sodium (Colace) 250 mg PO DAILY [facility] Stop: 06/14/17 08:59 Last Admin: 04/17/17 09:01 Dose: Not Given Donepezil HCl (Aricept) 10 mg PO HS [facility] Stop: 06/13/17 20:59 Last Admin: 04/16/17 20:52 Dose: 10 mg Glucagon (Glucagen) 1 mg IM PRN PRN PRN Reason: Blood Glucose less than 70 Stop: 06/13/17 21:00 Guaifenesin (Robitussin) 100 mg PO Q4H PRN PRN Reason: Cough or Congestion Stop: 06/13/17 12:41 Levofloxacin (Levaquin Pb) 500 mg in 100 mls @ 100 mls/hr IV Q24HR [facility] Stop: 06/13/17 13:59 Last Infusion: 04/16/17 20:04 Dose: Infused Sodium Chloride (Nacl 0.9%) 1,000 mls @ 60 mls/hr IV .[id number] [facility] Stop: 06/13/17 12:44 Last Infusion: 04/17/17 06:00 Dose: 60 mls/hr Insulin Aspart (Novolog Insulin Sliding Scale) 0 units SUBQ ACHS TRAVIS PRN Reason: Protocol Stop: 06/13/17 16:29 Last Admin: 04/17/17 08:00 Dose: Not Given Insulin Human Isoph/Insulin Regular (Novolin 70/30) 20 units SUBQ QDAC [facility] Stop: 06/15/17 07:29 Last Admin: 04/17/17 09:58 Dose: Not Given Ipratropium Mckinney (Atrovent Neb 0.5mg/2.5ml) 0.5 mg IH Q2HR PRN PRN Reason: Shortness of Breath or Wheeze Stop: 06/13/17 12:41 Lactobacillus Rhamnosus (Culturelle) 1 each PO DAILY [facility] Stop: 06/14/17 08:59 Last Admin: 04/17/17 09:01 Dose: Not Given Loratadine (Claritin) 10 mg PO DAILY [facility] Stop: 06/14/17 08:59 Last Admin: 04/17/17 09:01 Dose: Not Given Memantine (Namenda) 10 mg PO BID [facility] Stop: 06/13/17 16:59 Last Admin: 04/17/17 09:01 Dose: Not Given Miscellaneous (Vte Chemical Prophylaxis Screen/ Admission) 1 ea PRN PRN PRN Reason: PROTOCOL Stop: 06/14/17 11:04 Miscellaneous (Probiotic Screen) 1 [facility] PRN PRN PRN Reason: PROTOCOL Stop: 06/14/17 15:54 Morphine Sulfate (Morphine) 1 mg IVP Q4H PRN PRN Reason: Pain (Severe) Stop: 06/15/17 21:41 Multivitamins/Vitamin C (Theragran) 1 tab PO DAILY [facility] Stop: 06/14/17 08:59 Last Admin: 04/17/17 09:02 Dose: Not Given Nitroglycerin (Nitrostat) 0.4 mg SL Q5MIN PRN PRN Reason: Chest Pain Stop: 06/13/17 12:36 Last Admin: 04/17/17 06:13 Dose: 0.4 mg Olanzapine (Zyprexa) 5 mg PO HS TRAVIS PRN Reason: Protocol Stop: 06/13/17 20:59 Last Admin: 04/16/17 20:52 Dose: 5 mg Ondansetron HCl (Zofran) 4 mg IV Q8H PRN PRN Reason: Nausea / Vomiting Stop: 06/13/17 12:41 Pantoprazole Sodium (Protonix) 40 mg IVP DAILY [facility] Stop: 06/14/17 08:59 Last Admin: 04/17/17 09:46 Dose: 40 mg General: weak, alert HEENT: NC/AT, PERRLA Neck: Supple, No JVD Lungs: CTAB Cardiovascular: mercedes Abdomen: soft, non-tender, non-distended, positive bowel sound Extremities: excoriation Neurological: alert - Procedures Procedures: Procedures Procedure Code Date GROUP PSYCHOTHERAPY 71089 05/02/15 GROUP PSYCHOTHERAPY [id number] 05/02/15 OTHER GROUP THERAPY 94.44 10/09/14 RECREATIONAL THERAPY 93.81 07/05/09 Internal Medicine Assmt/Plan - Assessment Assessment: Chest Pain Bradycardia Lactic acidosis Acute UTI dementia htn dm-2 hyponatremia - Plan Plan: pacemaker today icu monitoring continue current tx Nutritional Asmnt/Malnutr-PDOC - Dietary Evaluation Malnutrition Findings (Please click <Entered> for more info): Nutritional Asmnt/Malnutrition Start: 04/15/17 15: 52 Text: Status: Complete Freq: Document 04/15/17 15:54 GSUN (Rec: 04/15/17 16:01 GSUN [id number]) Nutritional Asmnt/Malnutrition Patient General Information Nutritional Screening High Risk Screening Diagnosis Chest pain, bradycardia, lactic acidosis, DM 2 Pertinent Medical Hx/Surgical Hx Stroke, hypercholesterolemia, HTN, dementia, DM type 2 Subjective Information 86 year old female from SNF. Pt was soundly asleep during visit. Pt appeared overweight with some loose skin, no muscle fat wasting noted. Observed breakfast tray 20% finished at time of visit, per RN notes, family came and assisted with meals, which pt finished 75% and noted with good appetite. Spoke to GERALD Gongora, no nutritional concerns , pt possible to be NPO after midnight for pacemake placement. Current Diet Order/ Nutrition Support Cardiac Pertinent Medications D50w, Glutocse 40%, Colace, Glucagen, Novolog, Novolin, Culturelle, Theragran, Zofran, Protonix Pertinent Labs 04/14: A1c 8.9H, glucose 276H 04/15: glucose 201H Nutritional Hx/Data Height 5 ft 5 in Height (Calculated Centimeters) 165.1 Current Weight (lbs) 166 lb 6.4 oz Weight (Calculated Kilograms) 75.5 Weight (Calculated Grams) 69155.8 Leonard Body Weight 125 Weight Status Overweight GI Symptoms Usual diet at home [place] Convacesent: mech soft, finely chopped, JODEE, CCHO Skin Integrity/Comment: Tunde 13. right lower leg scar. Estimated Nutritional Goals Calories/Kcals/Kg IBW 125lb/56.8kg Kcals Calculated 1420-1704kcal (25-30kcal/kg) Protein Calculated 57g (1g/kg) Fluid: ml 1420-1704ml (1ml/kcal) Nutritional Problem 1. Problem Problem Altered nutrition related laboratory values related to Etiology DM aeb Signs/Symptoms: A1c 8.9, glucose 276 Intervention/Recommendation Comments 1. Recommend UCLO14cz cardiac. 2. Recommend diet texture downgrade if needed. [facility]. Expected Outcomes/Goals Expected Outcomes/Goals 1. PO intake to meet at least 75% of estimated nutritinoal needs.
[2017-04-17] MEDS ORDERED: Lactated Ringer 1,000 ML IV SCH (12:15)
[2017-04-17 12:16] LABS: FOLIC ACID >20.0 ng/mL (>3.0)
[2017-04-17] MEDS ORDERED: Midazolam 1mg/ml 2 ml vial IV ONE (12:20)
--- NOTE | 2017-04-17 14:08 | Operative Report ---
DATE OF SURGERY: 04/17/2017 PREOPERATIVE DIAGNOSES: 1. Sick sinus syndrome. 2. Dementia. 3. Hypertension. 4. Diabetes mellitus. 5. Obesity. POSTOPERATIVE DIAGNOSES: 1. Sick sinus syndrome. 2. Dementia. 3. Hypertension. 4. Diabetes mellitus. 5. Obesity. OPERATION DONE: Insertion of DDD pacemaker under ultrasound and fluoroscopy. SURGEON: Renetta Ames M.D. ANESTHESIA: MAC. ANESTHESIOLOGIST: Enoc Polo M.D. INDICATIONS FOR SURGERY: The patient with heart rate in 30s. Because Plavix had been taken on a regulari basis, the patient had to wait 3 days prior to placement of the pacemaker. ESTIMATED BLOOD LOSS: 5 ml. OPERATIVE FINDINGS: The following thresholds were obtained. The atrial lead, P waves sensed at 1.6 at 0.4 msec, voltage of 0.4, resistance of 429 ohms. Ventricular lead sensed R waves 9.1, msec 0.4, voltage 0.6, resistance 604 ohms. A Biotronik atrial lead, serial #[id number], 45 cm and the ventricular lead is also ____, serial #[id number], 53 cm. The generator is an MRI compatible, Solia S45, serial #[id number]. DESCRIPTION OF PROCEDURE: The patient was given IV sedation. The left chest was prepped with ChloraPrep and draped in appropriate manner. Then, 1% lidocaine was used to infiltrate the deltopectoral groove. Incision was made and the search for the cephalic vein was made. This was, however, small. The ultrasound was used to locate subclavian vessels. Size 18 needle was used to locate the vein ____ puncture. The guidewire was inserted under fluoroscopy, was then followed the course ____ vena cava. The introducer was placed over the guidewire under fluoroscopy, then the ventricular lead was advanced into a suitable location in the apex of the right ventricle. Thresholds were satisfactory and the screw was deployed. Good slack was left to prevent dislodgement. The atrial lead was then placed over the retained wire with introducer and suitable location in the right atrium was made following which the screw was deployed. Removal of the guidewire under fluoroscopy shows retention of the lead in the same location. Following satisfactory hemostasis, the leads were anchored in place with 2-0 silk. Subcutaneous pocket was made and the leads were connected to the generator and placed in subcutaneous pocket. The incision was closed with running suture of 3-0 Vicryl subcutaneously and the skin was closed with subcuticular suture of 4-0 Vicryl. Sterile dressing was placed over this. The patient tolerated the procedure well. JOB# [id number]
[2017-04-17 14:32] LABS: pH 7.21 (7.35-7.45)
[2017-04-17 14:33] LABS: ABG SOURCE Arterial; HCO3 20.1 mEq/L (20.0-26.0)
[2017-04-17] MEDS ORDERED: Sodium Bicarbonate 8.4% 50mEq PFS IVP ONE ×2 (14:33→14:41)
[2017-04-17 14:34] LABS: FIO2 100
--- NOTE | 2017-04-17 15:40 | Diagnostic Imaging Report ---
Portable chest x-ray HISTORY: Shortness of breath, status post pacemaker placement Compared to prior exam of April 14, 2017, cardiac pacemaker lead wires project over the right atrium and right ventricle. There has developed hazy density/infiltrate within the right lung along with evidence of a small right pleural effusion. The findings are probably associated with a degree of congestive heart failure. Clinical correlation is needed. IMPRESSION: 1. Cardiac pacemaker placement as noted above 2. New infiltrate within the right lung along with evidence of a small right pleural effusion. The findings are most likely associated with congestive heart failure. Clinical correlation is needed.
--- NOTE | 2017-04-17 15:42 | Diagnostic Imaging Report ---
Cardiac pacemaker placement (intraoperative fluoroscopic images and services) HISTORY: Cardiac pacemaker placement 1 minute 54 seconds fluoroscopy time was utilized.
[2017-04-17] MEDS: methylPREDNISolone SS 40 mg Vial IVP SCH ×2 (15:50→21:28)
[2017-04-17] MEDS: Albuterol/Ipratropium Neb 3 ML AERS HHN SCH ×3 (15:51→22:58)
[2017-04-17] MEDS: Piperacillin/Tazobact 2.25 gm in 0.9% NS 50 ML IV SCH ×2 (15:56→21:18)
[2017-04-17 16:14] LABS: ABG SOURCE Arterial; BE(B) 4.1 mEq/L (-3.0-3.0); HCO3 28.2 mEq/L (20.0-26.0); pH 7.42 (7.35-7.45)
[2017-04-17 16:15] LABS: FIO2 100; MECH RATE 14; PS 9
--- NOTE | 2017-04-17 18:52 | Consultation ---
DATE OF CONSULTATION: 04/17/2017 REFERRING PHYSICIAN: Dr. Chacon. REASON FOR CONSULTATION: Platelet dysfunction. HISTORY OF PRESENT ILLNESS: The patient is an 86-year-old female, who presented to the hospital with chest pain and found to have CVA, bradycardia, complete heart block. The patient required insertion of pacemaker. She was taking Plavix prior to admission, therefore platelets were infused to correct the platelet dysfunction prior to pacemaker placement. PAST MEDICAL HISTORY: CVA, hypertension, dementia, dyslipidemia. MEDICATIONS: Lantus, metformin, omeprazole, Aricept, Zyprexa, Namenda, simvastatin. SOCIAL HISTORY: skilled nursing resident. PHYSICAL EXAMINATION: GENERAL: She is on BiPAP. VITAL SIGNS: Stable. HEENT: Atraumatic. CHEST: Left-sided pacemaker dressing, no bleeding. ABDOMEN: Soft. Andino catheter in place. No bleeding from any site. LABORATORY DATA: White count 9.6, hemoglobin 11.1, platelets 182. PT and PTT normal. Creatinine 0.7. ASSESSMENT: 1. Platelet dysfunction secondary to Plavix, status post correction with the platelet transfusion. The patient is status post pacemaker placement. There is no active bleeding. 2. Anemia, mild. Continue to monitor. Thank you, Dr. Chacon for allowing me to participate in the care of this interesting case. JOB# [id number]
[2017-04-18] MEDS: Albuterol/Ipratropium Neb 3 ML AERS HHN SCH ×6 (03:03→22:48)
[2017-04-18] MEDS: Piperacillin/Tazobact 2.25 gm in 0.9% NS 50 ML IV SCH ×4 (03:41→21:17)
[2017-04-18] MEDS: methylPREDNISolone SS 40 mg Vial IVP SCH ×3 (04:26→21:16)
[2017-04-18 04:53] LABS: HEMOGLOBIN 9.4 gm/dL (12-16); MEAN CELL VOLUME 89.7 fl (81-100); MEAN CORPUSCULAR HEMOGLOBIN 29.9 pg (27.0-31.0); MEAN CORPUSCULAR HGB CONC 33.3 pg (28.0-36.0); MEAN PLATELET VOLUME 8.1 fl; PLATELET COUNT 209 Th/cmm (150-400); RED BLOOD COUNT 3.14 Mil/cmm (3.80-5.20); WHITE BLOOD COUNT 7.7 Th/cmm (4.8-10.8)
[2017-04-18 05:09] LABS: ANION GAP 13.9 (7.0-16.0); BUN - UREA NITROGEN 16 mg/dL (7-25); BUN/CREATININE RATIO 26.7; CALCIUM SERUM 7.3 mg/dL (8.6-10.3); CARBON DIOXIDE 23.3 mEq/L (21.0-31.0); CHLORIDE 105 mEq/L (98-107); CREATININE - SERUM 0.6 mg/dL (0.6-1.2); GLUCOSE 275 mg/dL (70-105); MAGNESIUM 1.7 mg/dL (1.9-2.7); POTASSIUM SERUM 3.2 mEq/L (3.5-5.1); SODIUM SERUM 139 mEq/L (136-145)
[2017-04-18 05:26] LABS: HEMATOCRIT 28.2 % (41.0-60)
[2017-04-18 06:03] LABS: BAND NEUTROPHILE 3 % (0-10); NEUTROPHILS 84 % (40-80); TOTAL CELLS COUNTED 100
[2017-04-18] MEDS: INSULIN ASPART SLIDING SCALE 100 UNITS/ML UNIT SUBQ SCH ×4 (07:20→21:33)
[2017-04-18] MEDS: INSULIN 70/30 100 UNITS/ML SUBQ SCH (07:30)
[2017-04-18 09:00] LABS: ABG SOURCE Arterial; BE(B) 3.9 mEq/L (-3.0-3.0); HCO3 27.9 mEq/L (20.0-26.0); MECH RATE 14; pH 7.47 (7.35-7.45)
[2017-04-18] MEDS: Dextromethorphan/Quinidine 20mg/10mg Cap PO SCH ×2 (09:00→17:56)
[2017-04-18] MEDS: MED PO SCH ×2 (09:00→17:56)
[2017-04-18 09:01] LABS: CRITICAL VALUES REPORTED BY SH; FIO2 35; MECH VT 500; PS 8
[2017-04-18] MEDS ORDERED: Potassium Chloride 40 MEQ, Lidocaine 1% 20mL Vial 25 MG in Sodium Chloride 0.9% 250 ML IV ONE (09:28)
[2017-04-18] MEDS ORDERED: Mag Sulfate 2gm/50mL Premix 2 GM/50 ML BAG IV ONE (09:28)
[2017-04-18] MEDS ORDERED: Calcium Gluconate 1 GM in Dextrose 5% 100 ML IV ONE (09:29)
[2017-04-18] MEDS ORDERED: D5-0.45NS 1,000 ML IV SCH (09:30)
--- NOTE | 2017-04-18 10:01 | Diagnostic Imaging Report ---
Exam: Portable examination of chest. HISTORY: Shortness of breath. Findings: Portable upright examination of the chest at 0805 hours was reviewed the study compared to prior examination of 04/14/2017. The study demonstrates right lower lobe pneumonia and effusion. Mediastinal structures midline. Bony thorax intact. The left costophrenic angles clear. Left-sided pacemaker is noted. IMPRESSION: right lower lobe pneumonia and effusion follow-up is recommended.
--- NOTE | 2017-04-18 10:11 | Consultation ---
DATE OF CONSULTATION: 04/17/2017 PATIENT OF: Dr. Chacon. Thank you very much Dr. Chacon, for this consultation. HISTORY OF PRESENT ILLNESS: This is an 86-year-old female who presented with chest pain and was found to have significant bradycardia and underwent pacemaker placement today. Post this procedure, the patient was having significant shortness of breath and congestion, hypoxemia, is 100% nonrebreather. She has increased work of breathing according to son. The patient has history of CHF and some other cardiac issues with no history of lung problems. She is being in the half-way, getting worse slowly, not doing a lot lately. PAST MEDICAL HISTORY: Diabetes mellitus, hypertension, hypercholesterolemia, and dementia. SOCIAL HISTORY: No history of smoking or drinking. REVIEW OF SYSTEMS: Unable to obtain because of the patient's condition. PHYSICAL EXAMINATION: GENERAL: The patient is arousable, awake, but in obvious distress. VITAL SIGNS: Temperature is 98.8, pulse 60, respiration is 28, blood pressure is 152/70, and saturation 97%. HEENT: Head is atraumatic and normocephalic. Pupils are equal and reactive to light and accommodation. Ears, nose, and throat normal. NECK: Supple. No JVD. CHEST: There is rhonchi and wheezing bilaterally. HEART: Regular. ABDOMEN: Soft. EXTREMITIES: No edema. LABORATORY DATA: Chest x-ray shows a new infiltrate in right lower lobe area with pulmonary edema, a pacemaker in place. The WBC is 9.6,, hematocrit 32.2, platelets is 182,000. D-dimer was 2160. ABGs: pH 7.21, pCO2 of 56, and pO2 of 82, bicarbonate is 20, saturation 93%. potassium 4.4, BUN is 13, and creatinine 0.7. IMPRESSION: This is an 86 years old female with: 1. Acute respiratory failure. 2. Pneumonia, possible aspiration. 3. Pulmonary edema. 4. Rule out pulmonary embolism. 5. Bronchospasm. PLAN: 1. Placed on the BiPAP for now. Repeat ABGs in 1 hour. If not improved or worsened, she might need to be intubated. 2. Given extra dose of Lasix. 3. Start Zosyn. 4. Solu-Medrol and nebulizer treatment. 5. We will do CT angio to rule out PE. Her prognosis is guarded. I discussed the patient's condition in details with the patient's son at bedside. We will follow the patient with you. [facility]# [id number] ALYCIA
--- NOTE | 2017-04-18 11:15 | Internal Medicine Prog Note ---
Internal Medicine Subjective - Subjective Service Date: 04/18/17 (patient is now on bipap. per nursing staff after pacemaker insertion patient became tachy and oxygen sat went low.) Patient is:: awake, verbal, in bed Per staff patient has:: no adverse event, tolerating meds Internal Medicine Objective - Results Result Diagrams: 04/18/17 04:07 04/18/17 04:07 Recent Labs: Laboratory Last Values WBC 7.7 Th/cmm (4.8-10.8) 04/18/17 04:07 RBC 3.14 Mil/cmm (3.80-5.20) L 04/18/17 04:07 Hgb 9.4 gm/dL (12-16) L 04/18/17 04:07 Hct 28.2 % (41.0-60) L D 04/18/17 04:07 MCV 89.7 fl (81-100) 04/18/17 04:07 MCH 29.9 pg (27.0-31.0) 04/18/17 04:07 MCHC Differential 33.3 pg (28.0-36.0) 04/18/17 04:07 RDW 13.0 % (11.5-20.0) 04/18/17 04:07 Plt Count 209 Th/cmm (150-400) 04/18/17 04:07 MPV 8.1 fl 04/18/17 04:07 Neutrophils % 78.1 % (40.0-80.0) 04/17/17 04:26 Band Neutrophils % 3 % (0-10) 04/18/17 04:07 Lymphocytes % 12.0 % (20.0-50.0) L 04/17/17 04:26 Monocytes % 9.4 % (2.0-10.0) 04/17/17 04:26 Eosinophils % 0.3 % (0.0-5.0) 04/17/17 04:26 Basophils % 0.2 % (0.0-2.0) 04/17/17 04:26 Neutrophils (Manual) 84 % (40-80) H 04/18/17 04:07 Lymphocytes 13 % (20-50) L 04/18/17 04:07 Monocytes 8 % (2-10) 04/14/17 09:29 Eosinophils 4 % (0-5) 04/14/17 09:29 Plt Count 182 Th/cmm (150-750) 04/17/17 04:26 PT 11.3 SECONDS (9.5-11.5) 04/17/17 04:26 INR 1.09 (0.5-1.4) 04/17/17 04:26 PTT (Actin FS) 26.6 SECONDS (26.0-38.0) 04/17/17 04:26 Fibrinogen 500.0 mg/dL (200.0-400.0) H 04/17/17 04:26 D-Dimer 2160 ng/mL (100-400) H 04/17/17 04:26 Plt Function Studies SEE COMMENT 04/17/17 04:26 Specimen Source Arterial 04/18/17 08:00 Sample Site RB 04/18/17 08:00 pH 7.47 (7.35-7.45) H 04/18/17 08:00 pCO2 38.0 mmHg (35.0-45.0) 04/18/17 08:00 pO2 76.0 mmHg (80.0-100.0) L 04/18/17 08:00 HCO3 27.9 mEq/L (20.0-26.0) H 04/18/17 08:00 Base Excess 3.9 mEq/L (-3.0-3.0) H 04/18/17 08:00 O2 Saturation 96.0 % (92.0-100.0) 04/18/17 08:00 Franklin Test NA 04/18/17 08:00 Vent Rate 14 04/18/17 08:00 Inspired O2 35 04/18/17 08:00 Tidal Volume 500 04/18/17 08:00 PEEP NA 04/18/17 08:00 Pressure (ins/psv/peep) 8 04/18/17 08:00 Critical Value SH 04/18/17 08:00 Sodium 139 mEq/L (136-145) 04/18/17 04:07 Potassium 3.2 mEq/L (3.5-5.1) L 04/18/17 04:07 Chloride 105 mEq/L (98-107) 04/18/17 04:07 Carbon Dioxide 23.3 mEq/L (21.0-31.0) 04/18/17 04:07 Anion Gap 13.9 (7.0-16.0) 04/18/17 04:07 BUN 16 mg/dL (7-25) 04/18/17 04:07 Creatinine 0.6 mg/dL (0.6-1.2) 04/18/17 04:07 Est GFR ( Amer) TNP 04/18/17 04:07 Est GFR (Non-Af Amer) TNP 04/18/17 04:07 BUN/Creatinine Ratio 26.7 04/18/17 04:07 Glucose 275 mg/dL (70-105) H 04/18/17 04:07 POC Glucose 325 MG/DL (70 - 105) H 04/18/17 07:05 Hemoglobin A1c % 8.9 % (4.0-6.0) H 04/14/17 09:29 Whole Bld Lactic Acid 2.80 mmol/L (0.60-1.99) H* 04/14/17 11:21 Calcium 7.3 mg/dL (8.6-10.3) L 04/18/17 04:07 Phosphorus 4.3 mg/dL (2.5-5.0) 04/15/17 05:35 Magnesium 1.7 mg/dL (1.9-2.7) L 04/18/17 04:07 Total Bilirubin 0.6 mg/dL (0.3-1.0) 04/14/17 09:29 AST 41 U/L (13-39) H 04/14/17 09:29 ALT 58 U/L (7-52) H 04/14/17 09:29 Alkaline Phosphatase 114 U/L (34-104) H 04/14/17 09:29 Ammonia 48 umol/L (16-53) 04/18/17 04:07 Troponin I 0.01 ng/mL (0.01-0.05) 04/14/17 09:29 B-Natriuretic Peptide 862.0 pg/mL (5.0-100.0) H 04/18/17 04:07 Total Protein 6.1 gm/dL (6.0-8.3) 04/14/17 09:29 Albumin 3.8 gm/dL (3.7-5.3) 04/14/17 09:29 Globulin 2.3 gm/dL 04/14/17 09:29 Albumin/Globulin Ratio 1.7 (1.0-1.8) 04/14/17 09:29 Vitamin B12 208 pg/mL (211-946) L 04/16/17 03:54 Folic Acid >20.0 ng/mL (>3.0) 04/16/17 03:54 TSH 1.98 uIU/ml (0.34-5.60) 04/14/17 11:21 Urine Source CATH 04/14/17 10:02 Urine Color YELLOW 04/14/17 10:02 Urine Clarity HAZY (CLEAR) 04/14/17 10:02 Urine pH 6.0 (4.6 - 8.0) 04/14/17 10:02 Ur Specific [place] 1.010 (1.005-1.030) 04/14/17 10:02 Urine Protein NEGATIVE mg/dL (NEGATIVE) 04/14/17 10:02 Urine Glucose (UA) >=1000 mg/dL (NEGATIVE) H 04/14/17 10:02 Urine Ketones TRACE mg/dL (NEGATIVE) 04/14/17 10:02 Urine Blood NEGATIVE (NEGATIVE) 04/14/17 10:02 Urine Nitrate POSITIVE (NEGATIVE) H 04/14/17 10:02 Urine Bilirubin NEGATIVE (NEGATIVE) 04/14/17 10:02 Urine Urobilinogen 0.2 E.U./dL (0.2 - 1.0) 04/14/17 10:02 Ur Leukocyte Esterase NEGATIVE (NEGATIVE) 04/14/17 10:02 Urine RBC 0-2 /hpf (0-5) 04/14/17 10:02 Urine WBC 2-5 /hpf (0-5) 04/14/17 10:02 Ur Epithelial Cells FEW /lpf (FEW) 04/14/17 10:02 Urine Bacteria MANY /hpf (NONE SEEN) 04/14/17 10:02 Blood Type O POSITIVE 04/14/17 09:29 Antibody Screen NEGATIVE 04/14/17 09:29 - Physical Exam Vitals and I&O: Vital Signs Temp 97.8 F 04/18/17 04:00 Pulse 79 04/18/17 07:59 Resp 19 04/18/17 10:59 BP 143/72 04/18/17 07:00 Pulse Ox 97 04/18/17 10:59 Intake & Output 04/17/17 04/18/17 04/18/17 18:59 06:59 18:59 Intake Total 400 680 Output Total 2200 650 Balance -1800 30 Weight (lbs) 168 lb 6 oz 168 lb Intake: Intake, IV Amount 50 680 Piperacillin Sodium/ 50 100 Tazobact 2.25 gm In Sodium Chloride 0.9% 50 ml @ 100 mls/hr IV Q6H [facility] Rx#:[id number] Sodium Chloride 0.9% 1, 580 000 ml @ 60 mls/hr IV . [id number] [facility] Rx#:[id number] Blood Product 350 Output: Urine 2200 650 Other: # Bowel Movements 0 0 Active Medications: Current Medications Acetaminophen (Tylenol) 650 mg PO Q4HR PRN PRN Reason: Mild Pain Or Fever above 101 Stop: 06/13/17 12:41 Last Admin: 04/17/17 06:12 Dose: 650 mg Acetaminophen/Hydrocodone Bitart ([place] 5mg/325mg) 1 tab PO Q8H PRN PRN Reason: moderate pain Stop: 06/13/17 12:36 Last Admin: 04/16/17 09:00 Dose: 1 tab Albuterol Sulfate (Albuterol 2.5mg/3ml Neb Ud) 2.5 mg IH Q2HR PRN PRN Reason: Shortness of Breath or Wheeze Stop: 06/13/17 12:41 Albuterol/Ipratropium (Duoneb Neb) 3 ml HHN Q4HRT [facility] Stop: 06/16/17 14:59 Last Admin: 04/18/17 11:01 Dose: 3 ml Atropine Sulfate (Atropine Syringe) 1 mg IVP Q4H PRN PRN Reason: HR below40 Stop: 06/13/17 12:59 Last Admin: 04/14/17 21:05 Dose: 1 mg Captopril (Capoten 25 Mg Tab) 50 mg PO BID [facility] Stop: 06/13/17 16:59 Last Admin: 04/17/17 16:15 Dose: Not Given Clopidogrel Bisulfate (Plavix) 75 mg PO DAILY [facility] Stop: 06/18/17 08:59 Dextromethorphan/Quinidine (Nuedexta 20mg-10mg) 1 cap PO BID [facility] Stop: 06/13/17 16:59 Last Admin: 04/17/17 16:16 Dose: Not Given Dextrose (D50w) 50 ml IVP PRN PRN PRN Reason: Blood Glucose less than 70 Stop: 06/13/17 21:00 Dextrose (Glutose 40%) 18.75 gm PO PRN PRN PRN Reason: Blood Glucose less than 70 Stop: 06/13/17 21:00 Diclofenac Sodium (Voltaren) 25 mg PO BID [facility] Stop: 06/15/17 08:59 Last Admin: 04/17/17 16:16 Dose: Not Given Docusate Sodium (Colace) 250 mg PO DAILY [facility] Stop: 06/14/17 08:59 Last Admin: 04/17/17 09:01 Dose: Not Given Donepezil HCl (Aricept) 10 mg PO HS [facility] Stop: 06/13/17 20:59 Last Admin: 04/17/17 21:19 Dose: Not Given Furosemide (Lasix) 40 mg IVP NOW STA Stop: 04/18/17 11:10 Glucagon (Glucagen) 1 mg IM PRN PRN PRN Reason: Blood Glucose less than 70 Stop: 06/13/17 21:00 Guaifenesin (Robitussin) 100 mg PO Q4H PRN PRN Reason: Cough or Congestion Stop: 06/13/17 12:41 Lactated Ringer's (Lactated Ringer) 1,000 mls @ 0 mls/hr IV .Q0M [facility] PRN Reason: TKO Stop: 04/18/17 12:14 Piperacillin Sod/Tazobactam (Sod 2.25 gm/ Sodium Chloride) 50 mls @ 100 mls/hr IV Q6H [facility] Stop: 06/16/17 15:59 Last Infusion: 04/18/17 04:11 Dose: Infused Dextrose/Sodium Chloride (D5-0.45ns) 1,000 mls @ 50 mls/hr IV .Q20H [facility] Stop: 06/17/17 09:29 Potassium Chloride 40 meq/Lidocaine HCl 25 mg/ Sodium Chloride 272.5 mls @ 68 mls/hr IV X1 ONE Stop: 04/18/17 13:28 Last Admin: 04/18/17 11:00 Dose: 68 mls/hr Magnesium Sulfate (Magnesium Sulfate Premix) 2 gm in 50 mls @ 25 mls/hr IV X1 ONE Stop: 04/18/17 11:27 Insulin Aspart (Novolog Insulin Sliding Scale) 0 units SUBQ ACHS [facility] PRN Reason: Protocol Stop: 06/13/17 16:29 Last Admin: 04/18/17 07:20 Dose: 9 units Insulin Human Isoph/Insulin Regular (Novolin 70/30) 20 units SUBQ QDAC [facility] Stop: 06/15/17 07:29 Last Admin: 04/18/17 07:30 Dose: Not Given Ipratropium [place] (Atrovent Neb 0.5mg/2.5ml) 0.5 mg IH Q2HR PRN PRN Reason: Shortness of Breath or Wheeze Stop: 06/13/17 12:41 Lactobacillus Rhamnosus (Culturelle) 1 each PO DAILY [facility] Stop: 06/14/17 08:59 Last Admin: 04/17/17 09:01 Dose: Not Given Loratadine (Claritin) 10 mg PO DAILY [facility] Stop: 06/14/17 08:59 Last Admin: 04/17/17 09:01 Dose: Not Given Memantine (Namenda) 10 mg PO BID [facility] Stop: 06/13/17 16:59 Last Admin: 04/17/17 16:16 Dose: Not Given Methylprednisolone Sodium Succinate (Solu-Medrol) 40 mg IVP Q8HR [facility] Stop: 06/16/17 15:29 Last Admin: 04/18/17 04:26 Dose: 40 mg Miscellaneous (Vte Chemical Prophylaxis Screen/ Admission) 1 ea PRN PRN PRN Reason: PROTOCOL Stop: 06/14/17 11:04 Miscellaneous (Probiotic Screen) 1 ea PRN PRN PRN Reason: PROTOCOL Stop: 06/14/17 15:54 Morphine Sulfate (Morphine) 1 mg IVP Q4H PRN PRN Reason: Pain (Severe) Stop: 06/15/17 21:41 Last Admin: 04/18/17 09:28 Dose: 1 mg Multivitamins/Vitamin C (Theragran) 1 tab PO DAILY [facility] Stop: 06/14/17 08:59 Last Admin: 04/17/17 09:02 Dose: Not Given Nitroglycerin (Nitrostat) 0.4 mg SL Q5MIN PRN PRN Reason: Chest Pain Stop: 06/13/17 12:36 Last Admin: 04/17/17 06:13 Dose: 0.4 mg Olanzapine (Zyprexa) 5 mg PO HS [facility] PRN Reason: Protocol Stop: 06/13/17 20:59 Last Admin: 04/17/17 21:20 Dose: Not Given Ondansetron HCl (Zofran) 4 mg IV UD PRN PRN Reason: Nausea / Vomiting Stop: 04/18/17 12:05 Pantoprazole Sodium (Protonix) 40 mg IVP DAILY [facility] Stop: 06/14/17 08:59 Last Admin: 04/17/17 09:46 Dose: 40 mg General: weak, alert HEENT: NC/AT, PERRLA Neck: Supple, No JVD Lungs: CTAB Cardiovascular: mercedes Abdomen: soft, non-tender, non-distended, positive bowel sound Extremities: excoriation Neurological: alert - Procedures Procedures: Procedures Procedure Code Date GROUP PSYCHOTHERAPY 19991 05/02/15 GROUP PSYCHOTHERAPY [id number] 05/02/15 INSERT PACE. DUAL BIANCA IN CHEST SUBCU/FASCIA, OPEN [id number] 04/14/17 INSERTION OF PACEMAKER LEAD INTO R VENTRICLE, PERC APPROACH [id number] 04/14/17 INSERTION OF PACEMAKER LEAD INTO RIGHT ATRIUM, PERC APPROACH [id number] 04/14/17 INSRT HEART PM ATRIAL & VENT 23938 04/14/17 OTHER GROUP THERAPY 94.44 10/09/14 RECREATIONAL THERAPY 93.81 07/05/09 Internal Medicine Assmt/Plan - Assessment Assessment: Chest Pain Bradycardia s/p pacemaker insertion Lactic acidosis Acute UTI dementia htn dm-2 hyponatremia - Plan Plan: pulmo f/u continue with lasix as per cardio monitor respiratory effort icu monitoring continue current tx Nutritional Asmnt/Malnutr-PDOC - Dietary Evaluation Malnutrition Findings (Please click <Entered> for more info): Nutritional Asmnt/Malnutrition Start: 04/15/17 15: 52 Text: Status: Complete Freq: Document 04/15/17 15:54 GSUN (Rec: 04/15/17 16:01 GSUN [id number]) Nutritional Asmnt/Malnutrition Patient General Information Nutritional Screening High Risk Screening Diagnosis Chest pain, bradycardia, lactic acidosis, DM 2 Pertinent Medical Hx/Surgical Hx Stroke, hypercholesterolemia, HTN, dementia, DM type 2 Subjective Information 86 year old female from SNF. Pt was soundly asleep during visit. Pt appeared overweight with some loose skin, no muscle fat wasting noted. Observed breakfast tray 20% finished at time of visit, per RN notes, family came and assisted with meals, which pt finished 75% and noted with good appetite. Spoke to GERALD Gongora, no nutritional concerns , pt possible to be NPO after midnight for pacemake placement. Current Diet Order/ Nutrition Support Cardiac Pertinent Medications D50w, Glutocse 40%, Colace, Glucagen, Novolog, Novolin, Culturelle, Theragran, Zofran, Protonix Pertinent Labs 04/14: A1c 8.9H, glucose 276H 04/15: glucose 201H Nutritional Hx/Data Height 5 ft 5 in Height (Calculated Centimeters) 165.1 Current Weight (lbs) 166 lb 6.4 oz Weight (Calculated Kilograms) 75.5 Weight (Calculated Grams) 91501.8 [place] Body Weight 125 Weight Status Overweight GI Symptoms Usual diet at home [place] Convacesent: mech soft, finely chopped, JODEE, CCHO Skin Integrity/Comment: Tunde Riley. right lower leg scar. Estimated Nutritional Goals Calories/Kcals/Kg IBW 125lb/56.8kg Kcals Calculated 1420-1704kcal (25-30kcal/kg) Protein Calculated 57g (1g/kg) Fluid: ml 1420-1704ml (1ml/kcal) Nutritional Problem 1. Problem Problem Altered nutrition related laboratory values related to Etiology DM aeb Signs/Symptoms: A1c 8.9, glucose 276 Intervention/Recommendation Comments 1. Recommend [id number] cardiac. 2. Recommend diet texture downgrade if needed. Pt's diet order mech soft chopped at SNF. Expected Outcomes/Goals Expected Outcomes/Goals 1. PO intake to meet at least 75% of estimated nutritinoal needs.
[2017-04-18] MEDS: Lactobacillus Rhamnosus 10 Billion CFU Capsule PO SCH (13:57)
[2017-04-18] MEDS: Multivitamin Tab PO SCH (13:57)
--- NOTE | 2017-04-18 20:03 | Consultation ---
DATE OF CONSULTATION: 04/18/2017 REASON FOR CONSULTATION: Agitation. HISTORY OF PRESENT ILLNESS: This is an 86-year-old female, currently on BIPAP, difficult to fully speak with her, brought into the ER due to weakness, severe bradycardia, third-degree AV block, admitted for pacemaker procedure, currently in restraints. She had an episode on , but since then has been very calm and cooperative. PAST PSYCHIATRIC HISTORY: Unknown. FAMILY HISTORY: Unknown. SOCIAL HISTORY: Unclear. No history of smoking or alcohol use. There is a son who helps to care of her. MEDICATIONS: Noted, discussed with staff as well. MENTAL STATUS EXAMINATION: Stated age. The patient with the BIPAP, difficult to understand, calm and cooperative. She is in restraints, but has been fairly calm and cooperative. No overt SI or HI. No overt psychotic symptoms. Thought processes were difficult to fully assess. She is awake and alert, better impulse control. PROVISIONAL DIAGNOSIS: Dementia per history. Mood unspecified. Anxiety, unspecified. MEDICAL DIAGNOSIS: Please see full H and P. PLAN: Continue current medication regimen. The patient appears to be quite calm and cooperative. However, we will try to follow up at a later date to speak with her more fully as she has a BIPAP on. [facility]# [id number]
[2017-04-19] MEDS: Albuterol/Ipratropium Neb 3 ML AERS HHN SCH ×6 (02:20→22:15)
[2017-04-19] MEDS: Piperacillin/Tazobact 2.25 gm in 0.9% NS 50 ML IV SCH ×4 (03:41→21:47)
[2017-04-19] MEDS: methylPREDNISolone SS 40 mg Vial IVP SCH ×3 (04:27→20:32)
[2017-04-19 05:26] LABS: HEMOGLOBIN 10.3 gm/dL (12-16); MEAN CELL VOLUME 90.9 fl (81-100); MEAN CORPUSCULAR HEMOGLOBIN 29.8 pg (27.0-31.0); MEAN CORPUSCULAR HGB CONC 32.8 pg (28.0-36.0); MEAN PLATELET VOLUME 8.2 fl; RED BLOOD COUNT 3.46 Mil/cmm (3.80-5.20); WHITE BLOOD COUNT 8.9 Th/cmm (4.8-10.8)
[2017-04-19 05:38] LABS: HEMATOCRIT 31.4 % (41.0-60); PLATELET COUNT 258 Th/cmm (150-400)
[2017-04-19 05:50] LABS: ANION GAP 12.8 (7.0-16.0); BUN - UREA NITROGEN 29 mg/dL (7-25); BUN/CREATININE RATIO 41.4; CALCIUM SERUM 8.6 mg/dL (8.6-10.3); CHLORIDE 99 mEq/L (98-107); CREATININE - SERUM 0.7 mg/dL (0.6-1.2); GLUCOSE 360 mg/dL (70-105); POTASSIUM SERUM 3.8 mEq/L (3.5-5.1); SODIUM SERUM 135 mEq/L (136-145)
[2017-04-19] MEDS: INSULIN ASPART SLIDING SCALE 100 UNITS/ML UNIT SUBQ SCH ×4 (06:47→20:42)
[2017-04-19] MEDS: INSULIN 70/30 100 UNITS/ML SUBQ SCH (06:51)
[2017-04-19] MEDS: Dextromethorphan/Quinidine 20mg/10mg Cap PO SCH ×2 (09:00→17:23)
[2017-04-19] MEDS: MED PO SCH ×2 (09:12→17:19)
[2017-04-19] MEDS: Lactobacillus Rhamnosus 10 Billion CFU Capsule PO SCH (09:14)
[2017-04-19] MEDS: Multivitamin Tab PO SCH (09:14)
--- NOTE | 2017-04-19 09:51 | Progress Notes ---
DATE: 04/19/2017 SUBJECTIVE: The patient was seen, chart reviewed, discussed with staff. The patient was seen on 04/19/2017. An 86-year-old female no longer on BiPAP, more oriented, engaged. States she feels weak, complaining of insomnia. Staff noting that she has been somewhat irritable, looked better, and also attesting that she is not sleeping very well. ASSESSMENT: The patient more engaged, oriented. No SI, no HI, no overt psychotic symptoms. PLAN: The patient currently on Zyprexa, any psychotic symptoms seems to be dissipating. We will recommend switching from Zyprexa to traditional insomnia medications as the patient is demented. I will try to avoid antipsychotics. [facility]# [id number]
--- NOTE | 2017-04-19 09:54 | Diagnostic Imaging Report ---
Exam: Portable chest x-ray HISTORY: Shortness of breath Portable summation of of chest at 0846 hours reviewed the study compared to day earlier demonstrates unchanged appearance of the cardiomegaly with superimposed congestive heart failure. Again noted right lower lobe infiltrate and effusion. Follow-up summation recommended. Left-sided pacemaker intact. Bony thorax is unremarkable. IMPRESSION: Cardiomegaly, congestive heart failure. Right lower lobe pneumonia and effusion. Effusion slightly increasing compatible prior study.
--- NOTE | 2017-04-19 10:12 | Diagnostic Imaging Report ---
Exam: CT examination of chest HISTORY: Pulmonary embolus. Total DLP equals 389 CTDI equals 10.2 Findings: Multiple contiguous thin section of the chest were obtained from thoracic outlet to the upper abdomen with administration of contrast material per pulmonary artery embolus protocol. No prior studies available comparison. The study demonstrates ill-defined low density area in the right lobe of thyroid gland measuring 2.8 cm diameter ultrasound examination of thyroid gland is recommended. The pulmonary vasculature demonstrates normal opacification bilaterally without evidence of pulmonary emboli. There is evidence of bilateral pneumonia with superimposed effusions greater on the right side. Mediastinal structures midline the heart is enlarged. No abnormal adenopathy is noted. The visualized upper abdomen demonstrates a hepatomegaly with the distended gallbladder. IMPRESSION: 1. No evidence of pulmonary emboli 2. Bilateral pneumonia with superimposed effusions 3. Right lobe of thyroid mass ultrasound summation of thyroid gland recommended
[2017-04-19 10:14] LABS: IRON SATURATION 7 % (15-55); TIBC (LCI) 206 ug/dL (250-450); UIBC 192 ug/dL (118-369)
--- NOTE | 2017-04-19 10:24 | General Progress Note ---
Subjective - Review of Systems Service Date: 04/19/17 Events since last encounter: pacemaker pacing and sensing dressing dry Objective - Results Result Diagrams: 04/19/17 04:50 04/19/17 04:50 Recent Labs: Laboratory Last Values WBC 8.9 Th/cmm (4.8-10.8) 04/19/17 04:50 RBC 3.46 Mil/cmm (3.80-5.20) L 04/19/17 04:50 Hgb 10.3 gm/dL (12-16) L 04/19/17 04:50 Hct 31.4 % (41.0-60) L D 04/19/17 04:50 MCV 90.9 fl (81-100) 04/19/17 04:50 MCH 29.8 pg (27.0-31.0) 04/19/17 04:50 MCHC Differential 32.8 pg (28.0-36.0) 04/19/17 04:50 RDW 13.0 % (11.5-20.0) 04/19/17 04:50 Plt Count 258 Th/cmm (150-400) D 04/19/17 04:50 MPV 8.2 fl 04/19/17 04:50 Neutrophils % 78.1 % (40.0-80.0) 04/17/17 04:26 Band Neutrophils % 3 % (0-10) 04/18/17 04:07 Lymphocytes % 12.0 % (20.0-50.0) L 04/17/17 04:26 Monocytes % 9.4 % (2.0-10.0) 04/17/17 04:26 Eosinophils % 0.3 % (0.0-5.0) 04/17/17 04:26 Basophils % 0.2 % (0.0-2.0) 04/17/17 04:26 Neutrophils (Manual) 84 % (40-80) H 04/18/17 04:07 Lymphocytes 13 % (20-50) L 04/18/17 04:07 Monocytes 8 % (2-10) 04/14/17 09:29 Eosinophils 4 % (0-5) 04/14/17 09:29 Plt Count 182 Th/cmm (150-750) 04/17/17 04:26 PT 11.3 SECONDS (9.5-11.5) 04/17/17 04:26 INR 1.09 (0.5-1.4) 04/17/17 04:26 PTT (Actin FS) 26.6 SECONDS (26.0-38.0) 04/17/17 04:26 Fibrinogen 500.0 mg/dL (200.0-400.0) H 04/17/17 04:26 D-Dimer 2160 ng/mL (100-400) H 04/17/17 04:26 Plt Function Studies SEE COMMENT 04/17/17 04:26 Specimen Source Arterial 04/18/17 08:00 Sample Site RB 04/18/17 08:00 pH 7.47 (7.35-7.45) H 04/18/17 08:00 pCO2 38.0 mmHg (35.0-45.0) 04/18/17 08:00 pO2 76.0 mmHg (80.0-100.0) L 04/18/17 08:00 HCO3 27.9 mEq/L (20.0-26.0) H 04/18/17 08:00 Base Excess 3.9 mEq/L (-3.0-3.0) H 04/18/17 08:00 O2 Saturation 96.0 % (92.0-100.0) 04/18/17 08:00 [place] Test NA 04/18/17 08:00 Vent Rate 14 04/18/17 08:00 Inspired O2 35 04/18/17 08:00 Tidal Volume 500 04/18/17 08:00 PEEP NA 04/18/17 08:00 Pressure (ins/psv/peep) 8 04/18/17 08:00 Critical Value SH 04/18/17 08:00 Sodium 135 mEq/L (136-145) L 04/19/17 04:50 Potassium 3.8 mEq/L (3.5-5.1) 04/19/17 04:50 Chloride 99 mEq/L (98-107) 04/19/17 04:50 Carbon Dioxide 27.0 mEq/L (21.0-31.0) 04/19/17 04:50 Anion Gap 12.8 (7.0-16.0) 04/19/17 04:50 BUN 29 mg/dL (7-25) H 04/19/17 04:50 Creatinine 0.7 mg/dL (0.6-1.2) 04/19/17 04:50 Est GFR ( Amer) TNP 04/19/17 04:50 Est GFR (Non-Af Amer) TNP 04/19/17 04:50 BUN/Creatinine Ratio 41.4 04/19/17 04:50 Glucose 360 mg/dL (70-105) H 04/19/17 04:50 POC Glucose 353 MG/DL (70 - 105) H 04/19/17 04:58 Hemoglobin A1c % 8.9 % (4.0-6.0) H 04/14/17 09:29 Whole Bld Lactic Acid 2.80 mmol/L (0.60-1.99) H* 04/14/17 11:21 Calcium 8.6 mg/dL (8.6-10.3) 04/19/17 04:50 Phosphorus 4.3 mg/dL (2.5-5.0) 04/15/17 05:35 Magnesium 1.7 mg/dL (1.9-2.7) L 04/18/17 04:07 Iron 14 ug/dL (27-139) L 04/18/17 04:07 TIBC 206 ug/dL (250-450) L 04/18/17 04:07 Iron Saturation 7 % (15-55) L 04/18/17 04:07 Unsaturated IBC 192 ug/dL (118-369) 04/18/17 04:07 Total Bilirubin 0.6 mg/dL (0.3-1.0) 04/14/17 09:29 AST 41 U/L (13-39) H 04/14/17 09:29 ALT 58 U/L (7-52) H 04/14/17 09:29 Alkaline Phosphatase 114 U/L (34-104) H 04/14/17 09:29 Ammonia 48 umol/L (16-53) 04/18/17 04:07 Troponin I 0.01 ng/mL (0.01-0.05) 04/14/17 09:29 B-Natriuretic Peptide 1500.0 pg/mL (5.0-100.0) H 04/19/17 04:50 Total Protein 6.1 gm/dL (6.0-8.3) 04/14/17 09:29 Albumin 3.8 gm/dL (3.7-5.3) 04/14/17 09:29 Globulin 2.3 gm/dL 04/14/17 09:29 Albumin/Globulin Ratio 1.7 (1.0-1.8) 04/14/17 09:29 Vitamin B12 208 pg/mL (211-946) L 04/16/17 03:54 Folic Acid >20.0 ng/mL (>3.0) 04/16/17 03:54 TSH 1.98 uIU/ml (0.34-5.60) 04/14/17 11:21 Urine Source CATH 04/14/17 10:02 Urine Color YELLOW 04/14/17 10:02 Urine Clarity HAZY (CLEAR) 04/14/17 10:02 Urine pH 6.0 (4.6 - 8.0) 04/14/17 10:02 Ur Specific [place] 1.010 (1.005-1.030) 04/14/17 10:02 Urine Protein NEGATIVE mg/dL (NEGATIVE) 04/14/17 10:02 Urine Glucose (UA) >=1000 mg/dL (NEGATIVE) H 04/14/17 10:02 Urine Ketones TRACE mg/dL (NEGATIVE) 04/14/17 10:02 Urine Blood NEGATIVE (NEGATIVE) 04/14/17 10:02 Urine Nitrate POSITIVE (NEGATIVE) H 04/14/17 10:02 Urine Bilirubin NEGATIVE (NEGATIVE) 04/14/17 10:02 Urine Urobilinogen 0.2 E.U./dL (0.2 - 1.0) 04/14/17 10:02 Ur Leukocyte Esterase NEGATIVE (NEGATIVE) 04/14/17 10:02 Urine RBC 0-2 /hpf (0-5) 04/14/17 10:02 Urine WBC 2-5 /hpf (0-5) 04/14/17 10:02 Ur Epithelial Cells FEW /lpf (FEW) 04/14/17 10:02 Urine Bacteria MANY /hpf (NONE SEEN) 04/14/17 10:02 Blood Type O POSITIVE 04/14/17 09:29 Antibody Screen NEGATIVE 04/14/17 09:29 - Physical Exam Vitals and I&O: Vital Signs Temp 97 F 04/19/17 06:00 Pulse 69 04/19/17 09:12 Resp 22 04/19/17 07:30 BP 147/63 04/19/17 09:12 Pulse Ox 94 04/19/17 07:30 Intake & Output 04/18/17 04/19/17 04/19/17 18:59 06:59 18:59 Intake Total 650 580 Output Total 1600 900 Balance -950 -320 Weight (lbs) 76.204 kg 76.742 kg Intake: Intake, IV Amount 50 100 Piperacillin Sodium/ 50 100 Tazobact 2.25 gm In Sodium Chloride 0.9% 50 ml @ 100 mls/hr IV Q6H [facility] Rx#:[id number] Oral 600 480 Output: Urine 1600 900 Other: # Bowel Movements 0 0 Active Medications: Current Medications Acetaminophen (Tylenol) 650 mg PO Q4HR PRN PRN Reason: Mild Pain Or Fever above 101 Stop: 06/13/17 12:41 Last Admin: 04/17/17 06:12 Dose: 650 mg Acetaminophen/Hydrocodone Bitart ([place] 5mg/325mg) 1 tab PO Q8H PRN PRN Reason: moderate pain Stop: 06/13/17 12:36 Last Admin: 04/16/17 09:00 Dose: 1 tab Albuterol Sulfate (Albuterol 2.5mg/3ml Neb Ud) 2.5 mg IH Q2HR PRN PRN Reason: Shortness of Breath or Wheeze Stop: 06/13/17 12:41 Albuterol/Ipratropium (Duoneb Neb) 3 ml HHN Q4HRT [facility] Stop: 06/16/17 14:59 Last Admin: 04/19/17 07:27 Dose: 3 ml Atropine Sulfate (Atropine Syringe) 1 mg IVP Q4H PRN PRN Reason: HR below40 Stop: 06/13/17 12:59 Last Admin: 04/14/17 21:05 Dose: 1 mg Captopril (Capoten 25 Mg Tab) 50 mg PO BID [facility] Stop: 06/13/17 16:59 Last Admin: 04/19/17 09:12 Dose: 50 mg Clopidogrel Bisulfate (Plavix) 75 mg PO DAILY [facility] Stop: 06/18/17 08:59 Last Admin: 04/19/17 09:13 Dose: 75 mg Dextromethorphan/Quinidine (Nuedexta 20mg-10mg) 1 cap PO BID [facility] Stop: 06/13/17 16:59 Last Admin: 04/18/17 17:56 Dose: 1 cap Dextrose (D50w) 50 ml IVP PRN PRN PRN Reason: Blood Glucose less than 70 Stop: 06/13/17 21:00 Dextrose (Glutose 40%) 18.75 gm PO PRN PRN PRN Reason: Blood Glucose less than 70 Stop: 06/13/17 21:00 Diclofenac Sodium (Voltaren) 25 mg PO BID [facility] Stop: 06/15/17 08:59 Last Admin: 04/18/17 17:56 Dose: 25 mg Docusate Sodium (Colace) 250 mg PO DAILY [facility] Stop: 06/14/17 08:59 Last Admin: 04/19/17 09:14 Dose: 250 mg Donepezil HCl (Aricept) 10 mg PO HS [facility] Stop: 06/13/17 20:59 Last Admin: 04/18/17 21:15 Dose: 10 mg Glucagon (Glucagen) 1 mg IM PRN PRN PRN Reason: Blood Glucose less than 70 Stop: 06/13/17 21:00 Guaifenesin (Robitussin) 100 mg PO Q4H PRN PRN Reason: Cough or Congestion Stop: 06/13/17 12:41 Piperacillin Sod/Tazobactam (Sod 2.25 gm/ Sodium Chloride) 50 mls @ 100 mls/hr IV Q6H [facility] Stop: 06/16/17 15:59 Last Admin: 04/19/17 03:41 Dose: 100 mls/hr Dextrose/Sodium Chloride (D5-0.45ns) 1,000 mls @ 50 mls/hr IV .Q20H [facility] Stop: 06/17/17 09:29 Last Admin: 04/18/17 20:27 Dose: 50 mls/hr Insulin Aspart (Novolog Insulin Sliding Scale) 0 units SUBQ ACHS [facility] PRN Reason: Protocol Stop: 06/13/17 16:29 Last Admin: 04/19/17 06:47 Dose: 11 units Insulin Human Isoph/Insulin Regular (Novolin 70/30) 20 units SUBQ QDAC [facility] Stop: 06/15/17 07:29 Last Admin: 04/19/17 06:51 Dose: 20 units Ipratropium [place] (Atrovent Neb 0.5mg/2.5ml) 0.5 mg IH Q2HR PRN PRN Reason: Shortness of Breath or Wheeze Stop: 06/13/17 12:41 Lactobacillus Rhamnosus (Culturelle) 1 each PO DAILY [facility] Stop: 06/14/17 08:59 Last Admin: 04/19/17 09:14 Dose: 1 each Loratadine (Claritin) 10 mg PO DAILY [facility] Stop: 06/14/17 08:59 Last Admin: 04/19/17 09:13 Dose: 10 mg Memantine (Namenda) 10 mg PO BID [facility] Stop: 06/13/17 16:59 Last Admin: 04/19/17 09:14 Dose: 10 mg Methylprednisolone Sodium Succinate (Solu-Medrol) 40 mg IVP Q8HR [facility] Stop: 06/16/17 15:29 Last Admin: 04/19/17 04:27 Dose: 40 mg Mirtazapine (Remeron) 7.5 mg PO HS [facility] PRN Reason: Protocol Stop: 06/18/17 20:59 Miscellaneous (Vte Chemical Prophylaxis Screen/ Admission) 1 [facility] PRN PRN PRN Reason: PROTOCOL Stop: 06/14/17 11:04 Miscellaneous (Probiotic Screen) 1 ea PRN PRN PRN Reason: PROTOCOL Stop: 06/14/17 15:54 Morphine Sulfate (Morphine) 1 mg IVP Q4H PRN PRN Reason: Pain (Severe) Stop: 06/15/17 21:41 Last Admin: 04/18/17 09:28 Dose: 1 mg Multivitamins/Vitamin C (Theragran) 1 tab PO DAILY [facility] Stop: 06/14/17 08:59 Last Admin: 04/19/17 09:14 Dose: 1 tab Nitroglycerin (Nitrostat) 0.4 mg SL Q5MIN PRN PRN Reason: Chest Pain Stop: 06/13/17 12:36 Last Admin: 04/17/17 06:13 Dose: 0.4 mg Pantoprazole Sodium (Protonix) 40 mg IVP DAILY [facility] Stop: 06/14/17 08:59 Last Admin: 04/19/17 09:14 Dose: 40 mg - Procedures Procedures: Procedures Procedure Code Date GROUP PSYCHOTHERAPY 96803 05/02/15 GROUP PSYCHOTHERAPY [id number] 05/02/15 INSERT PACE. DUAL BIANCA IN CHEST SUBCU/FASCIA, OPEN [id number] 04/14/17 INSERTION OF PACEMAKER LEAD INTO R VENTRICLE, PERC APPROACH [id number] 04/14/17 INSERTION OF PACEMAKER LEAD INTO RIGHT ATRIUM, PERC APPROACH [id number] 04/14/17 INSRT HEART PM ATRIAL & VENT 59464 04/14/17 OTHER GROUP THERAPY 94.44 10/09/14 RECREATIONAL THERAPY 93.81 07/05/09 Assessment/Plan - Problem List Patient Problems: All Active Problems Aggression (Acute) R45.89 Agitation (Acute) R45.1 Nutritional Asmnt/Malnutr-PDOC - Dietary Evaluation Malnutrition Findings (Please click <Entered> for more info): Nutritional Asmnt/Malnutrition Start: 04/15/17 15: 52 Text: Status: Complete Freq: Document 04/15/17 15:54 GSUN (Rec: 04/15/17 16:01 GSUN [id number]) Nutritional Asmnt/Malnutrition Patient General Information Nutritional Screening High Risk Screening Diagnosis Chest pain, bradycardia, lactic acidosis, DM 2 Pertinent Medical Hx/Surgical Hx Stroke, hypercholesterolemia, HTN, dementia, DM type 2 Subjective Information 86 year old female from SNF. Pt was soundly asleep during visit. Pt appeared overweight with some loose skin, no muscle fat wasting noted. Observed breakfast tray 20% finished at time of visit, per RN notes, family came and assisted with meals, which pt finished 75% and noted with good appetite. Spoke to GERALD Gongora, no nutritional concerns , pt possible to be NPO after midnight for pacemake placement. Current Diet Order/ Nutrition Support Cardiac Pertinent Medications D50w, Glutocse 40%, Colace, Glucagen, Novolog, Novolin, Culturelle, Theragran, Zofran, Protonix Pertinent Labs 04/14: A1c 8.9H, glucose 276H 04/15: glucose 201H Nutritional Hx/Data Height 1.65 m Height (Calculated Centimeters) 165.1 Current Weight (lbs) 75.478 kg Weight (Calculated Kilograms) 75.5 Weight (Calculated Grams) 30221.8 Ralph Body Weight 125 Weight Status Overweight GI Symptoms Usual diet at home [place] Convacesent: mech soft, finely chopped, JODEE, CCHO Skin Integrity/Comment: [place] 13. right lower leg scar. Estimated Nutritional Goals Calories/Kcals/Kg IBW 125lb/56.8kg Kcals Calculated 1420-1704kcal (25-30kcal/kg) Protein Calculated 57g (1g/kg) Fluid: ml 1420-1704ml (1ml/kcal) Nutritional Problem 1. Problem Problem Altered nutrition related laboratory values related to Etiology DM aeb Signs/Symptoms: A1c 8.9, glucose 276 Intervention/Recommendation Comments 1. Recommend [id number] cardiac. 2. Recommend diet texture downgrade if needed. Pt's diet order mech soft chopped at SNF. Expected Outcomes/Goals Expected Outcomes/Goals 1. PO intake to meet at least 75% of estimated nutritinoal needs.
--- NOTE | 2017-04-19 17:10 | Internal Medicine Prog Note ---
Internal Medicine Subjective - Subjective Service Date: 04/19/17 (on O2 N/c tolerating well. ) Patient is:: awake, verbal, in bed Per staff patient has:: no adverse event, tolerating meds Internal Medicine Objective - Results Result Diagrams: 04/19/17 04:50 04/19/17 04:50 Recent Labs: Laboratory Last Values WBC 8.9 Th/cmm (4.8-10.8) 04/19/17 04:50 RBC 3.46 Mil/cmm (3.80-5.20) L 04/19/17 04:50 Hgb 10.3 gm/dL (12-16) L 04/19/17 04:50 Hct 31.4 % (41.0-60) L D 04/19/17 04:50 MCV 90.9 fl (81-100) 04/19/17 04:50 MCH 29.8 pg (27.0-31.0) 04/19/17 04:50 MCHC Differential 32.8 pg (28.0-36.0) 04/19/17 04:50 RDW 13.0 % (11.5-20.0) 04/19/17 04:50 Plt Count 258 Th/cmm (150-400) D 04/19/17 04:50 MPV 8.2 fl 04/19/17 04:50 Neutrophils % 78.1 % (40.0-80.0) 04/17/17 04:26 Band Neutrophils % 3 % (0-10) 04/18/17 04:07 Lymphocytes % 12.0 % (20.0-50.0) L 04/17/17 04:26 Monocytes % 9.4 % (2.0-10.0) 04/17/17 04:26 Eosinophils % 0.3 % (0.0-5.0) 04/17/17 04:26 Basophils % 0.2 % (0.0-2.0) 04/17/17 04:26 Neutrophils (Manual) 84 % (40-80) H 04/18/17 04:07 Lymphocytes 13 % (20-50) L 04/18/17 04:07 Monocytes 8 % (2-10) 04/14/17 09: Eosinophils 4 % (0-5) 04/14/17 09:29 Plt Count 182 Th/cmm (150-750) 04/17/17 04:26 PT 11.3 SECONDS (9.5-11.5) 04/17/17 04:26 INR 1.09 (0.5-1.4) 04/17/17 04:26 PTT (Actin FS) 26.6 SECONDS (26.0-38.0) 04/17/17 04:26 Fibrinogen 500.0 mg/dL (200.0-400.0) H 04/17/17 04:26 D-Dimer 2160 ng/mL (100-400) H 04/17/17 04:26 Plt Function Studies SEE COMMENT 04/17/17 04:26 Specimen Source Arterial 04/18/17 08:00 Sample Site RB 04/18/17 08:00 pH 7.47 (7.35-7.45) H 04/18/17 08:00 pCO2 38.0 mmHg (35.0-45.0) 04/18/17 08:00 pO2 76.0 mmHg (80.0-100.0) L 04/18/17 08:00 HCO3 27.9 mEq/L (20.0-26.0) H 04/18/17 08:00 Base Excess 3.9 mEq/L (-3.0-3.0) H 04/18/17 08:00 O2 Saturation 96.0 % (92.0-100.0) 04/18/17 08:00 [place] Test NA 04/18/17 08:00 Vent Rate 14 04/18/17 08:00 Inspired O2 35 04/18/17 08:00 Tidal Volume 500 04/18/17 08:00 PEEP NA 04/18/17 08:00 Pressure (ins/psv/peep) 8 04/18/17 08:00 Critical Value SH 04/18/17 08:00 Sodium 135 mEq/L (136-145) L 04/19/17 04:50 Potassium 3.8 mEq/L (3.5-5.1) 04/19/17 04:50 Chloride 99 mEq/L (98-107) 04/19/17 04:50 Carbon Dioxide 27.0 mEq/L (21.0-31.0) 04/19/17 04:50 Anion Gap 12.8 (7.0-16.0) 04/19/17 04:50 BUN 29 mg/dL (7-25) H 04/19/17 04:50 Creatinine 0.7 mg/dL (0.6-1.2) 04/19/17 04:50 Est GFR ( Amer) TNP 04/19/17 04:50 Est GFR (Non-Af Amer) TNP 04/19/17 04:50 BUN/Creatinine Ratio 41.4 04/19/17 04:50 Glucose 360 mg/dL (70-105) H 04/19/17 04:50 POC Glucose 389 MG/DL (70 - 105) H 04/19/17 12:23 Hemoglobin A1c % 8.9 % (4.0-6.0) H 04/14/17 09:29 Whole Bld Lactic Acid 2.80 mmol/L (0.60-1.99) H* 04/14/17 11:21 Calcium 8.6 mg/dL (8.6-10.3) 04/19/17 04:50 Phosphorus 4.3 mg/dL (2.5-5.0) 04/15/17 05:35 Magnesium 1.7 mg/dL (1.9-2.7) L 04/18/17 04:07 Iron 14 ug/dL (27-139) L 04/18/17 04:07 TIBC 206 ug/dL (250-450) L 04/18/17 04:07 Iron Saturation 7 % (15-55) L 04/18/17 04:07 Unsaturated IBC 192 ug/dL (118-369) 04/18/17 04:07 Total Bilirubin 0.6 mg/dL (0.3-1.0) 04/14/17 09:29 AST 41 U/L (13-39) H 04/14/17 09:29 ALT 58 U/L (7-52) H 04/14/17 09:29 Alkaline Phosphatase 114 U/L (34-104) H 04/14/17 09:29 Ammonia 48 umol/L (16-53) 04/18/17 04:07 Troponin I 0.01 ng/mL (0.01-0.05) 04/14/17 09:29 B-Natriuretic Peptide 1500.0 pg/mL (5.0-100.0) H 04/19/17 04:50 Total Protein 6.1 gm/dL (6.0-8.3) 04/14/17 09: Albumin 3.8 gm/dL (3.7-5.3) 04/14/17 09: Globulin 2.3 gm/dL 04/14/17 09: Albumin/Globulin Ratio 1.7 (1.0-1.8) 04/14/17 09:29 Vitamin B12 208 pg/mL (211-946) L 04/16/17 03:54 Folic Acid >20.0 ng/mL (>3.0) 04/16/17 03:54 TSH 1.98 uIU/ml (0.34-5.60) 04/14/17 11:21 Urine Source CATH 04/14/17 10:02 Urine Color YELLOW 04/14/17 10:02 Urine Clarity HAZY (CLEAR) 04/14/17 10:02 Urine pH 6.0 (4.6 - 8.0) 04/14/17 10:02 Ur Specific [place] 1.010 (1.005-1.030) 04/14/17 10:02 Urine Protein NEGATIVE mg/dL (NEGATIVE) 04/14/17 10:02 Urine Glucose (UA) >=1000 mg/dL (NEGATIVE) H 04/14/17 10:02 Urine Ketones TRACE mg/dL (NEGATIVE) 04/14/17 10:02 Urine Blood NEGATIVE (NEGATIVE) 04/14/17 10:02 Urine Nitrate POSITIVE (NEGATIVE) H 04/14/17 10:02 Urine Bilirubin NEGATIVE (NEGATIVE) 04/14/17 10:02 Urine Urobilinogen 0.2 E.U./dL (0.2 - 1.0) 04/14/17 10:02 Ur Leukocyte Esterase NEGATIVE (NEGATIVE) 04/14/17 10:02 Urine RBC 0-2 /hpf (0-5) 04/14/17 10:02 Urine WBC 2-5 /hpf (0-5) 04/14/17 10:02 Ur Epithelial Cells FEW /lpf (FEW) 04/14/17 10:02 Urine Bacteria MANY /hpf (NONE SEEN) 04/14/17 10:02 Blood Type O POSITIVE 04/14/17 09:29 Antibody Screen NEGATIVE 04/14/17 09:29 - Physical Exam Vitals and I&O: Vital Signs Temp 97.5 F 04/19/17 08:00 Pulse 73 04/19/17 15:44 Resp 22 04/19/17 15:44 BP 111/58 04/19/17 11:00 Pulse Ox 93 04/19/17 15:44 Intake & Output 04/18/17 04/19/17 04/19/17 18:59 06:59 18:59 Intake Total 650 580 Output Total 1600 900 Balance -950 -320 Weight (lbs) 168 lb 169 lb 3 oz Intake: Intake, IV Amount 50 100 Piperacillin Sodium/ 50 100 Tazobact 2.25 gm In Sodium Chloride 0.9% 50 ml @ 100 mls/hr IV Q6H [facility] Rx#:[id number] Oral 600 480 Output: Urine 1600 900 Other: # Bowel Movements 0 0 Active Medications: Current Medications Acetaminophen (Tylenol) 650 mg PO Q4HR PRN PRN Reason: Mild Pain Or Fever above 101 Stop: 06/13/17 12:41 Last Admin: 04/17/17 06:12 Dose: 650 mg Acetaminophen/Hydrocodone Bitart ([place] 5mg/325mg) 1 tab PO Q8H PRN PRN Reason: moderate pain Stop: 06/13/17 12:36 Last Admin: 04/16/17 09:00 Dose: 1 tab Albuterol Sulfate (Albuterol 2.5mg/3ml Neb Ud) 2.5 mg IH Q2HR PRN PRN Reason: Shortness of Breath or Wheeze Stop: 06/13/17 12:41 Albuterol/Ipratropium (Duoneb Neb) 3 ml HHN Q4HRT [facility] Stop: 06/16/17 14:59 Last Admin: 04/19/17 15:40 Dose: 3 ml Atropine Sulfate (Atropine Syringe) 1 mg IVP Q4H PRN PRN Reason: HR below40 Stop: 06/13/17 12:59 Last Admin: 04/14/17 21:05 Dose: 1 mg Captopril (Capoten 25 Mg Tab) 50 mg PO BID [facility] Stop: 06/13/17 16:59 Last Admin: 04/19/17 09:12 Dose: 50 mg Clopidogrel Bisulfate (Plavix) 75 mg PO DAILY [facility] Stop: 06/18/17 08:59 Last Admin: 04/19/17 09:13 Dose: 75 mg Dextromethorphan/Quinidine (Nuedexta 20mg-10mg) 1 cap PO BID [facility] Stop: 06/13/17 16:59 Last Admin: 04/18/17 17:56 Dose: 1 cap Dextrose (D50w) 50 ml IVP PRN PRN PRN Reason: Blood Glucose less than 70 Stop: 06/13/17 21:00 Dextrose (Glutose 40%) 18.75 gm PO PRN PRN PRN Reason: Blood Glucose less than 70 Stop: 06/13/17 21:00 Diclofenac Sodium (Voltaren) 25 mg PO BID [facility] Stop: 06/15/17 08:59 Last Admin: 04/18/17 17:56 Dose: 25 mg Docusate Sodium (Colace) 250 mg PO DAILY [facility] Stop: 06/14/17 08:59 Last Admin: 04/19/17 09:14 Dose: 250 mg Donepezil HCl (Aricept) 10 mg PO HS [facility] Stop: 06/13/17 20:59 Last Admin: 04/18/17 21:15 Dose: 10 mg Furosemide (Lasix) 40 mg IVP DAILY [facility] Stop: 06/19/17 08:59 Glucagon (Glucagen) 1 mg IM PRN PRN PRN Reason: Blood Glucose less than 70 Stop: 06/13/17 21:00 Guaifenesin (Robitussin) 100 mg PO Q4H PRN PRN Reason: Cough or Congestion Stop: 06/13/17 12:41 Piperacillin Sod/Tazobactam (Sod 2.25 gm/ Sodium Chloride) 50 mls @ 100 mls/hr IV Q6H [facility] Stop: 06/16/17 15:59 Last Admin: 04/19/17 03:41 Dose: 100 mls/hr Dextrose/Sodium Chloride (D5-0.45ns) 1,000 mls @ 50 mls/hr IV .Q20H [facility] Stop: 06/17/17 09:29 Last Admin: 04/18/17 20:27 Dose: 50 mls/hr Insulin Aspart (Novolog Insulin Sliding Scale) 0 units SUBQ ACHS [facility] PRN Reason: Protocol Stop: 06/13/17 16:29 Last Admin: 04/19/17 12:26 Dose: 11 units Insulin Human Isoph/Insulin Regular (Novolin 70/30) 20 units SUBQ QDAC [facility] Stop: 06/15/17 07:29 Last Admin: 04/19/17 06:51 Dose: 20 units Ipratropium [place] (Atrovent Neb 0.5mg/2.5ml) 0.5 mg IH Q2HR PRN PRN Reason: Shortness of Breath or Wheeze Stop: 06/13/17 12:41 Lactobacillus Rhamnosus (Culturelle) 1 each PO DAILY [facility] Stop: 06/14/17 08:59 Last Admin: 04/19/17 09:14 Dose: 1 each Loratadine (Claritin) 10 mg PO DAILY [facility] Stop: 06/14/17 08:59 Last Admin: 04/19/17 09:13 Dose: 10 mg Memantine (Namenda) 10 mg PO BID [facility] Stop: 06/13/17 16:59 Last Admin: 04/19/17 09:14 Dose: 10 mg Methylprednisolone Sodium Succinate (Solu-Medrol) 40 mg IVP Q8HR [facility] Stop: 06/16/17 15:29 Last Admin: 04/19/17 04:27 Dose: 40 mg Mirtazapine (Remeron) 7.5 mg PO HS [facility] PRN Reason: Protocol Stop: 06/18/17 20:59 Miscellaneous (Vte Chemical Prophylaxis Screen/ Admission) 1 ea PRN PRN PRN Reason: PROTOCOL Stop: 06/14/17 11:04 Miscellaneous (Probiotic Screen) 1 ea PRN PRN PRN Reason: PROTOCOL Stop: 06/14/17 15:54 Morphine Sulfate (Morphine) 1 mg IVP Q4H PRN PRN Reason: Pain (Severe) Stop: 06/15/17 21:41 Last Admin: 04/18/17 09:28 Dose: 1 mg Multivitamins/Vitamin C (Theragran) 1 tab PO DAILY [facility] Stop: 06/14/17 08:59 Last Admin: 04/19/17 09:14 Dose: 1 tab Nitroglycerin (Nitrostat) 0.4 mg SL Q5MIN PRN PRN Reason: Chest Pain Stop: 06/13/17 12:36 Last Admin: 04/17/17 06:13 Dose: 0.4 mg Pantoprazole Sodium (Protonix) 40 mg IVP DAILY [facility] Stop: 06/14/17 08:59 Last Admin: 04/19/17 09:14 Dose: 40 mg General: weak, alert HEENT: NC/AT, PERRLA Neck: Supple, No JVD Lungs: CTAB Cardiovascular: mercedes Abdomen: soft, non-tender, non-distended, positive bowel sound Extremities: excoriation Neurological: alert - Procedures Procedures: Procedures Procedure Code Date GROUP PSYCHOTHERAPY 92168 05/02/15 GROUP PSYCHOTHERAPY [id number] 05/02/15 INSERT PACE. DUAL BIANCA IN CHEST SUBCU/FASCIA, OPEN [id number] 04/14/17 INSERTION OF PACEMAKER LEAD INTO R VENTRICLE, PERC APPROACH [id number] 04/14/17 INSERTION OF PACEMAKER LEAD INTO RIGHT ATRIUM, PERC APPROACH [id number] 04/14/17 INSRT HEART PM ATRIAL & VENT 74672 04/14/17 OTHER GROUP THERAPY 94.44 10/09/14 RECREATIONAL THERAPY 93.81 07/05/09 Internal Medicine Assmt/Plan - Assessment Assessment: Chest Pain Bradycardia s/p pacemaker insertion Lactic acidosis Acute UTI dementia htn dm-2 hyponatremia - Plan Plan: continue with lasix monitor respiratory effort icu monitoring am labs continue current tx Nutritional Asmnt/Malnutr-PDOC - Dietary Evaluation Malnutrition Findings (Please click <Entered> for more info): Nutritional Asmnt/Malnutrition Start: 04/15/17 15: 52 Text: Status: Complete Freq: Document 04/15/17 15:54 GSUN (Rec: 04/15/17 16:01 [email or web address] [id number]) Nutritional Asmnt/Malnutrition Patient General Information Nutritional Screening High Risk Screening Diagnosis Chest pain, bradycardia, lactic acidosis, DM 2 Pertinent Medical Hx/Surgical Hx Stroke, hypercholesterolemia, HTN, dementia, DM type 2 Subjective Information 86 year old female from SNF. Pt was soundly asleep during visit. Pt appeared overweight with some loose skin, no muscle fat wasting noted. Observed breakfast tray 20% finished at time of visit, per RN notes, family came and assisted with meals, which pt finished 75% and noted with good appetite. Spoke to GERALD Gongora, no nutritional concerns , pt possible to be NPO after midnight for pacemake placement. Current Diet Order/ Nutrition Support Cardiac Pertinent Medications D50w, Glutocse 40%, Colace, Glucagen, Novolog, Novolin, Culturelle, Theragran, Zofran, Protonix Pertinent Labs 04/14: A1c 8.9H, glucose 276H 04/15: glucose 201H Nutritional Hx/Data Height 5 ft 5 in Height (Calculated Centimeters) 165.1 Current Weight (lbs) 166 lb 6.4 oz Weight (Calculated Kilograms) 75.5 Weight (Calculated Grams) 67196.8 [place] Body Weight 125 Weight Status Overweight GI Symptoms Usual diet at home [place] Convacesent: mech soft, finely chopped, JODEE, CCHO Skin Integrity/Comment: [place] 13. right lower leg scar. Estimated Nutritional Goals Calories/Kcals/Kg IBW 125lb/56.8kg Kcals Calculated 1420-1704kcal (25-30kcal/kg) Protein Calculated 57g (1g/kg) Fluid: ml 1420-1704ml (1ml/kcal) Nutritional Problem 1. Problem Problem Altered nutrition related laboratory values related to Etiology DM aeb Signs/Symptoms: A1c 8.9, glucose 276 Intervention/Recommendation Comments 1. Recommend [id number] cardiac. 2. Recommend diet texture downgrade if needed. Pt's diet order mech soft chopped at SNF. Expected Outcomes/Goals Expected Outcomes/Goals 1. PO intake to meet at least 75% of estimated nutritinoal needs.
[2017-04-19] MEDS ORDERED: Piperacillin Sodium/Tazobact 2.25 gm Vial IV ONE (17:34)
[2017-04-20] MEDS: Albuterol/Ipratropium Neb 3 ML AERS HHN SCH ×5 (02:45→18:39)
[2017-04-20] MEDS: Piperacillin/Tazobact 2.25 gm in 0.9% NS 50 ML IV SCH ×3 (04:06→16:55)
[2017-04-20 05:21] LABS: PLATELET COUNT 264 Th/cmm (150-400); WHITE BLOOD COUNT 9.5 Th/cmm (4.8-10.8)
[2017-04-20 05:28] LABS: HEMATOCRIT 31.8 % (41.0-60); HEMOGLOBIN 10.8 gm/dL (12-16); MEAN CELL VOLUME 89.4 fl (81-100); MEAN CORPUSCULAR HEMOGLOBIN 30.4 pg (27.0-31.0); MEAN PLATELET VOLUME 8.5 fl; RED BLOOD COUNT 3.56 Mil/cmm (3.80-5.20); RED CELL DISTRIBUTION WIDTH 13.2 % (11.5-20.0)
[2017-04-20 05:35] LABS: ALB/GLOB RATIO 1.2 (1.0-1.8); ALKALINE PHOSPHATASE 138 U/L (34-104); ANION GAP 11.5 (7.0-16.0); BILIRUBIN,TOTAL 0.8 mg/dL (0.3-1.0); BUN - UREA NITROGEN 38 mg/dL (7-25); BUN/CREATININE RATIO 54.3; CALCIUM SERUM 8.4 mg/dL (8.6-10.3); CARBON DIOXIDE 26.2 mEq/L (21.0-31.0); CHLORIDE 98 mEq/L (98-107); CREATININE - SERUM 0.7 mg/dL (0.6-1.2); GLUCOSE 374 mg/dL (70-105); POTASSIUM SERUM 3.7 mEq/L (3.5-5.1); SGOT 50 U/L (13-39); SGPT/ALT 72 U/L (7-52); SODIUM SERUM 132 mEq/L (136-145)
[2017-04-20] MEDS: methylPREDNISolone SS 40 mg Vial IVP SCH ×2 (05:36→12:34)
[2017-04-20 05:54] LABS: BAND NEUTROPHILE 3 % (0-10); NEUTROPHILS 84 % (40-80); TOTAL CELLS COUNTED 100
[2017-04-20] MEDS: INSULIN ASPART SLIDING SCALE 100 UNITS/ML UNIT SUBQ SCH ×3 (06:42→16:59)
--- NOTE | 2017-04-20 08:44 | Diagnostic Imaging Report ---
Portable chest x-ray HISTORY: Shortness of breath Compared with prior exam of 04/19/2017, the heart remains enlarged. There is a persistent right pleural effusion and minimal left pleural effusion. Hazy infiltrate seen in the right lung. Combination of findings are consistent with changes of congestive heart failure. IMPRESSION: 1. Little change in the cardiopulmonary status. Persistent cardiomegaly, right pleural effusion, and hazy infiltrate in the right lung probably related to congestive heart failure. Underlying pneumonia cannot be excluded. Clinical correlation is needed.
[2017-04-20] MEDS: Lactobacillus Rhamnosus 10 Billion CFU Capsule PO SCH (09:53)
[2017-04-20] MEDS: MED PO SCH ×2 (09:53→16:57)
[2017-04-20] MEDS: Multivitamin Tab PO SCH (09:53)
[2017-04-20] MEDS: Dextromethorphan/Quinidine 20mg/10mg Cap PO SCH ×2 (09:56→16:58)
[2017-04-20] MEDS: INSULIN 70/30 100 UNITS/ML SUBQ SCH ×2 (09:58→16:58)
--- NOTE | 2017-04-20 19:35 | Internal Medicine Prog Note ---
Internal Medicine Subjective - Subjective Service Date: 04/20/17 Patient is:: awake, verbal, in bed Per staff patient has:: no adverse event, tolerating meds Internal Medicine Objective - Results Result Diagrams: 04/20/17 04:45 04/20/17 04:45 Recent Labs: Laboratory Last Values WBC 9.5 Th/cmm (4.8-10.8) 04/20/17 04:45 RBC 3.56 Mil/cmm (3.80-5.20) L 04/20/17 04:45 Hgb 10.8 gm/dL (12-16) L 04/20/17 04:45 Hct 31.8 % (41.0-60) L 04/20/17 04:45 MCV 89.4 fl (81-100) 04/20/17 04:45 MCH 30.4 pg (27.0-31.0) 04/20/17 04:45 MCHC Differential 34.0 pg (28.0-36.0) 04/20/17 04:45 RDW 13.2 % (11.5-20.0) 04/20/17 04:45 Plt Count 264 Th/cmm (150-400) 04/20/17 04:45 MPV 8.5 fl 04/20/17 04:45 Neutrophils % 78.1 % (40.0-80.0) 04/17/17 04:26 Band Neutrophils % 3 % (0-10) 04/20/17 04:45 Lymphocytes % 12.0 % (20.0-50.0) L 04/17/17 04:26 Monocytes % 9.4 % (2.0-10.0) 04/17/17 04:26 Eosinophils % 0.3 % (0.0-5.0) 04/17/17 04:26 Basophils % 0.2 % (0.0-2.0) 04/17/17 04:26 Neutrophils (Manual) 84 % (40-80) H 04/20/17 04:45 Lymphocytes 12 % (20-50) L 04/20/17 04:45 Monocytes 1 % (2-10) L 04/20/17 04:45 Eosinophils 4 % (0-5) 04/14/17 09:29 Plt Count 182 Th/cmm (150-750) 04/17/17 04:26 PT 11.3 SECONDS (9.5-11.5) 04/17/17 04:26 INR 1.09 (0.5-1.4) 04/17/17 04:26 PTT (Actin FS) 26.6 SECONDS (26.0-38.0) 04/17/17 04:26 Fibrinogen 500.0 mg/dL (200.0-400.0) H 04/17/17 04:26 D-Dimer 2160 ng/mL (100-400) H 04/17/17 04:26 Plt Function Studies SEE COMMENT 04/17/17 04:26 Specimen Source Arterial 04/18/17 08:00 Sample Site RB 04/18/17 08:00 pH 7.47 (7.35-7.45) H 04/18/17 08:00 pCO2 38.0 mmHg (35.0-45.0) 04/18/17 08:00 pO2 76.0 mmHg (80.0-100.0) L 04/18/17 08:00 HCO3 27.9 mEq/L (20.0-26.0) H 04/18/17 08:00 Base Excess 3.9 mEq/L (-3.0-3.0) H 04/18/17 08:00 O2 Saturation 96.0 % (92.0-100.0) 04/18/17 08:00 [place] Test NA 04/18/17 08:00 Vent Rate 14 04/18/17 08:00 Inspired O2 35 04/18/17 08:00 Tidal Volume 500 04/18/17 08:00 PEEP NA 04/18/17 08:00 Pressure (ins/psv/peep) 8 04/18/17 08:00 Critical Value SH 04/18/17 08:00 Sodium 132 mEq/L (136-145) L 04/20/17 04:45 Potassium 3.7 mEq/L (3.5-5.1) 04/20/17 04:45 Chloride 98 mEq/L (98-107) 04/20/17 04:45 Carbon Dioxide 26.2 mEq/L (21.0-31.0) 04/20/17 04:45 Anion Gap 11.5 (7.0-16.0) 04/20/17 04:45 BUN 38 mg/dL (7-25) H 04/20/17 04:45 Creatinine 0.7 mg/dL (0.6-1.2) 04/20/17 04:45 Est GFR ( Amer) TNP 04/20/17 04:45 Est GFR (Non-Af Amer) TNP 04/20/17 04:45 BUN/Creatinine Ratio 54.3 04/20/17 04:45 Glucose 374 mg/dL (70-105) H 04/20/17 04:45 POC Glucose 300 MG/DL (70 - 105) H 04/20/17 16:54 Hemoglobin A1c % 8.9 % (4.0-6.0) H 04/14/17 09:29 Whole Bld Lactic Acid 2.80 mmol/L (0.60-1.99) H* 04/14/17 11:21 Calcium 8.4 mg/dL (8.6-10.3) L 04/20/17 04:45 Phosphorus 4.3 mg/dL (2.5-5.0) 04/15/17 05:35 Magnesium 1.7 mg/dL (1.9-2.7) L 04/18/17 04:07 Iron 14 ug/dL (27-139) L 04/18/17 04:07 TIBC 206 ug/dL (250-450) L 04/18/17 04:07 Iron Saturation 7 % (15-55) L 04/18/17 04:07 Unsaturated IBC 192 ug/dL (118-369) 04/18/17 04:07 Total Bilirubin 0.8 mg/dL (0.3-1.0) 04/20/17 04:45 AST 50 U/L (13-39) H 04/20/17 04:45 ALT 72 U/L (7-52) H 04/20/17 04:45 Alkaline Phosphatase 138 U/L (34-104) H 04/20/17 04:45 Ammonia 48 umol/L (16-53) 04/18/17 04:07 Troponin I 0.01 ng/mL (0.01-0.05) 04/14/17 09:29 B-Natriuretic Peptide 1180.0 pg/mL (5.0-100.0) H 04/20/17 04:45 Total Protein 5.8 gm/dL (6.0-8.3) L 04/20/17 04:45 Albumin 3.2 gm/dL (3.7-5.3) L 04/20/17 04:45 Globulin 2.6 gm/dL 04/20/17 04:45 Albumin/Globulin Ratio 1.2 (1.0-1.8) 04/20/17 04:45 Vitamin B12 208 pg/mL (211-946) L 04/16/17 03:54 Folic Acid >20.0 ng/mL (>3.0) 04/16/17 03:54 TSH 1.98 uIU/ml (0.34-5.60) 04/14/17 11:21 Urine Source CATH 04/14/17 10:02 Urine Color YELLOW 04/14/17 10:02 Urine Clarity HAZY (CLEAR) 04/14/17 10:02 Urine pH 6.0 (4.6 - 8.0) 04/14/17 10:02 Ur Specific [place] 1.010 (1.005-1.030) 04/14/17 10:02 Urine Protein NEGATIVE mg/dL (NEGATIVE) 04/14/17 10:02 Urine Glucose (UA) >=1000 mg/dL (NEGATIVE) H 04/14/17 10:02 Urine Ketones TRACE mg/dL (NEGATIVE) 04/14/17 10:02 Urine Blood NEGATIVE (NEGATIVE) 04/14/17 10:02 Urine Nitrate POSITIVE (NEGATIVE) H 04/14/17 10:02 Urine Bilirubin NEGATIVE (NEGATIVE) 04/14/17 10:02 Urine Urobilinogen 0.2 E.U./dL (0.2 - 1.0) 04/14/17 10:02 Ur Leukocyte Esterase NEGATIVE (NEGATIVE) 04/14/17 10:02 Urine RBC 0-2 /hpf (0-5) 04/14/17 10:02 Urine WBC 2-5 /hpf (0-5) 04/14/17 10:02 Ur Epithelial Cells FEW /lpf (FEW) 04/14/17 10:02 Urine Bacteria MANY /hpf (NONE SEEN) 04/14/17 10:02 Blood Type O POSITIVE 04/14/17 09:29 Antibody Screen NEGATIVE 04/14/17 09:29 - Physical Exam Vitals and I&O: Vital Signs Temp 97.1 F 04/20/17 18:17 Pulse 77 04/20/17 18:40 Resp 24 10/02/17 18:40 BP 146/69 04/20/17 18:17 Pulse Ox 95 04/20/17 18:40 Intake & Output 04/20/17 04/20/17 04/21/17 06:59 18:59 06:59 Intake Total 1050 1120 Output Total 1000 2100 Balance 50 -980 Weight (lbs) 171 lb 3 oz 171 lb 3 oz Intake: Intake, IV Amount 150 100 Piperacillin Sodium/ 150 100 Tazobact 2.25 gm In Sodium Chloride 0.9% 50 ml @ 100 mls/hr IV Q6H [facility] Rx#:[id number] Oral 900 1020 Output: Urine 1000 2100 Other: # Bowel Movements 1 1 Stool Characteristics Soft Soft Brown Formed Active Medications: Current Medications Acetaminophen (Tylenol) 650 mg PO Q4HR PRN PRN Reason: Mild Pain Or Fever above 101 Stop: 06/13/17 12:41 Last Admin: 04/17/17 06:12 Dose: 650 mg Acetaminophen/Hydrocodone Bitart ([place] 5mg/325mg) 1 tab PO Q8H PRN PRN Reason: moderate pain Stop: 06/13/17 12:36 Last Admin: 04/16/17 09:00 Dose: 1 tab Albuterol Sulfate (Albuterol 2.5mg/3ml Neb Ud) 2.5 mg IH Q2HR PRN PRN Reason: Shortness of Breath or Wheeze Stop: 06/13/17 12:41 Albuterol/Ipratropium (Duoneb Neb) 3 ml HHN Q4HRT [facility] Stop: 06/16/17 14:59 Last Admin: 04/20/17 18:39 Dose: 3 ml Atropine Sulfate (Atropine Syringe) 1 mg IVP Q4H PRN PRN Reason: HR below40 Stop: 06/13/17 12:59 Last Admin: 04/14/17 21:05 Dose: 1 mg Captopril (Capoten 25 Mg Tab) 50 mg PO BID [facility] Stop: 06/13/17 16:59 Last Admin: 04/20/17 16:57 Dose: 50 mg Clopidogrel Bisulfate (Plavix) 75 mg PO DAILY [facility] Stop: 06/18/17 08:59 Last Admin: 04/20/17 09:53 Dose: 75 mg Dextromethorphan/Quinidine (Nuedexta 20mg-10mg) 1 cap PO BID [facility] Stop: 06/13/17 16:59 Last Admin: 04/20/17 16:58 Dose: 1 cap Dextrose (D50w) 50 ml IVP PRN PRN PRN Reason: Blood Glucose less than 70 Stop: 06/13/17 21:00 Diclofenac Sodium (Voltaren) 25 mg PO BID [facility] Stop: 06/15/17 08:59 Last Admin: 04/20/17 16:57 Dose: 25 mg Docusate Sodium (Colace) 250 mg PO DAILY [facility] Stop: 06/14/17 08:59 Last Admin: 04/20/17 09:55 Dose: 250 mg Donepezil HCl (Aricept) 10 mg PO HS [facility] Stop: 06/13/17 20:59 Last Admin: 04/19/17 20:32 Dose: 10 mg Furosemide (Lasix) 40 mg IVP DAILY [facility] Stop: 06/19/17 08:59 Last Admin: 04/20/17 09:53 Dose: 40 mg Furosemide (Lasix) 40 mg IVP BID [facility] Stop: 06/19/17 16:59 Last Admin: 04/20/17 16:57 Dose: 40 mg Glucagon (Glucagen) 1 mg IM PRN PRN PRN Reason: Blood Glucose less than 70 Stop: 06/13/17 21:00 Guaifenesin (Robitussin) 100 mg PO Q4H PRN PRN Reason: Cough or Congestion Stop: 06/13/17 12:41 Last Admin: 04/19/17 20:50 Dose: 100 mg Piperacillin Sod/Tazobactam (Sod 2.25 gm/ Sodium Chloride) 50 mls @ 100 mls/hr IV Q6H [facility] Stop: 06/16/17 15:59 Last Infusion: 04/20/17 18:00 Dose: Infused Insulin Aspart (Novolog Insulin Sliding Scale) 0 units SUBQ ACHS [facility] PRN Reason: Protocol Stop: 06/13/17 16:29 Last Admin: 04/20/17 16:59 Dose: 7 units Insulin Human Isoph/Insulin Regular (Novolin 70/30) 15 units SUBQ BID [facility] Stop: 06/19/17 08:59 Last Admin: 04/20/17 16:58 Dose: 15 units Ipratropium [place] (Atrovent Neb 0.5mg/2.5ml) 0.5 mg IH Q2HR PRN PRN Reason: Shortness of Breath or Wheeze Stop: 06/13/17 12:41 Lactobacillus Rhamnosus (Culturelle) 1 each PO DAILY [facility] Stop: 06/14/17 08:59 Last Admin: 04/20/17 09:53 Dose: 1 each Loratadine (Claritin) 10 mg PO DAILY [facility] Stop: 06/14/17 08:59 Last Admin: 04/20/17 09:53 Dose: 10 mg Memantine (Namenda) 10 mg PO BID [facility] Stop: 06/13/17 16:59 Last Admin: 04/20/17 16:57 Dose: 10 mg Methylprednisolone Sodium Succinate (Solu-Medrol) 40 mg IVP Q8HR [facility] Stop: 06/16/17 15:29 Last Admin: 04/20/17 12:34 Dose: 40 mg Mirtazapine (Remeron) 7.5 mg PO HS [facility] PRN Reason: Protocol Stop: 06/18/17 20:59 Last Admin: 04/19/17 20:31 Dose: 7.5 mg Miscellaneous (Vte Chemical Prophylaxis Screen/ Admission) 1 ea MC PRN PRN PRN Reason: PROTOCOL Stop: 06/14/17 11:04 Miscellaneous (Probiotic Screen) 1 ea PRN PRN PRN Reason: PROTOCOL Stop: 06/14/17 15:54 Morphine Sulfate (Morphine) 1 mg IVP Q4H PRN PRN Reason: Pain (Severe) Stop: 06/15/17 21:41 Last Admin: 04/18/17 09:28 Dose: 1 mg Multivitamins/Vitamin C (Theragran) 1 tab PO DAILY [facility] Stop: 06/14/17 08:59 Last Admin: 04/20/17 09:53 Dose: 1 tab Nitroglycerin (Nitrostat) 0.4 mg SL Q5MIN PRN PRN Reason: Chest Pain Stop: 06/13/17 12:36 Last Admin: 04/17/17 06:13 Dose: 0.4 mg Pantoprazole Sodium (Protonix) 40 mg IVP DAILY [facility] Stop: 06/14/17 08:59 Last Admin: 04/20/17 09:53 Dose: 40 mg Zolpidem Tartrate (Ambien) 5 mg PO HS PRN PRN Reason: Insomnia Stop: 06/18/17 19:10 Last Admin: 04/19/17 20:51 Dose: 5 mg General: weak, alert HEENT: NC/AT, PERRLA Neck: Supple, No JVD Lungs: CTAB Cardiovascular: mercedes Abdomen: soft, non-tender, non-distended, positive bowel sound Extremities: excoriation Neurological: alert - Procedures Procedures: Procedures Procedure Code Date GROUP PSYCHOTHERAPY 32299 05/02/15 GROUP PSYCHOTHERAPY [id number] 05/02/15 INSERT PACE. DUAL BIANCA IN CHEST SUBCU/FASCIA, OPEN [id number] 04/14/17 INSERTION OF PACEMAKER LEAD INTO R VENTRICLE, PERC APPROACH [id number] 04/14/17 INSERTION OF PACEMAKER LEAD INTO RIGHT ATRIUM, PERC APPROACH [id number] 04/14/17 INSRT HEART PM ATRIAL & VENT 13852 04/14/17 OTHER GROUP THERAPY 94.44 10/09/14 RECREATIONAL THERAPY 93.81 07/05/09 Internal Medicine Assmt/Plan - Assessment Assessment: Chest Pain Bradycardia s/p pacemaker insertion Lactic acidosis Acute UTI dementia htn dm-2 hyponatremia - Plan Plan: dc once bed available at [place] monitor respiratory effort icu monitoring am labs continue current tx Nutritional Asmnt/Malnutr-PDOC - Dietary Evaluation Malnutrition Findings (Please click <Entered> for more info): Nutritional Asmnt/Malnutrition Start: 04/15/17 15: 52 Text: Status: Complete Freq: Document 04/15/17 15:54 GSUN (Rec: 04/15/17 16:01 [email or web address] [email or web address]) Nutritional Asmnt/Malnutrition Patient General Information Nutritional Screening High Risk Screening Diagnosis Chest pain, bradycardia, lactic acidosis, DM 2 Pertinent Medical Hx/Surgical Hx Stroke, hypercholesterolemia, HTN, dementia, DM type 2 Subjective Information 86 year old female from SNF. Pt was soundly asleep during visit. Pt appeared overweight with some loose skin, no muscle fat wasting noted. Observed breakfast tray 20% finished at time of visit, per RN notes, family came and assisted with meals, which pt finished 75% and noted with good appetite. Spoke to GERALD [place], no nutritional concerns , pt possible to be NPO after midnight for pacemake placement. Current Diet Order/ Nutrition Support Cardiac Pertinent Medications D50w, Glutocse 40%, Colace, Glucagen, Novolog, Novolin, Culturelle, Theragran, Zofran, Protonix Pertinent Labs 04/14: A1c 8.9H, glucose 276H 04/15: glucose 201H Nutritional Hx/Data Height 5 ft 5 in Height (Calculated Centimeters) 165.1 Current Weight (lbs) 166 lb 6.4 oz Weight (Calculated Kilograms) 75.5 Weight (Calculated Grams) 42457.8 [place] Body Weight 125 Weight Status Overweight GI Symptoms Usual diet at home [place] Convacesent: mech soft, finely chopped, [facility] Integrity/Comment: [place] 13. right lower leg scar. Estimated Nutritional Goals Calories/Kcals/Kg IBW 125lb/56.8kg Kcals Calculated 1420-1704kcal (25-30kcal/kg) Protein Calculated 57g (1g/kg) Fluid: ml 1420-1704ml (1ml/kcal) Nutritional Problem 1. Problem Problem Altered nutrition related laboratory values related to Etiology DM aeb Signs/Symptoms: A1c 8.9, glucose 276 Intervention/Recommendation Comments 1. Recommend [id number] cardiac. 2. Recommend diet texture downgrade if needed. Pt's diet order mech soft chopped at SNF. Expected Outcomes/Goals Expected Outcomes/Goals 1. PO intake to meet at least 75% of estimated nutritinoal needs.
--- NOTE | 2017-04-21 04:26 | Progress Notes ---
DATE: 04/20/2017 Case was discussed with staff of the patient, reviewed records. The patient currently in ICU. She is a well-known patient, I have been treating her for years now. [facility] She was admitted because of bradycardia, had to have a pacemaker on Thursday. She is sleeping well and eating well. Pleasant and cooperative. No suicidal ideation. No homicidal ideation. No paranoia. No side effects. Thank you very much for allowing me to participate in the care of this most interesting lady. JOB# [id number]
== END 2017-04-20 19:04 | DRG 242 ==
LOC: ER 09:00 → ICU 11:15
PROVIDERS: ADMIT Internal Medicine; ATTEND Internal Medicine
PROC: 0JH606Z Insertion of Pacemaker, Dual Chamber into Chest Subcutaneous Tissue and Fascia, Open Approach (ICD-10-PCS; principal; 2017-04-17)
PROC: 02HK3JZ Insertion of Pacemaker Lead into Right Ventricle, Percutaneous Approach (ICD-10-PCS; 2017-04-17)
PROC: 02H63JZ Insertion of Pacemaker Lead into Right Atrium, Percutaneous Approach (ICD-10-PCS; 2017-04-17)
PROC: 30233R1 Transfusion of Nonautologous Platelets into Peripheral Vein, Percutaneous Approach (ICD-10-PCS; 2017-04-17)
PROC: 5A09357 Assistance with Respiratory Ventilation, Less than 24 Consecutive Hours, Continuous Positive Airway Pressure (ICD-10-PCS; 2017-04-17)
DX: I44.2 Atrioventricular block, complete (principal); J96.00 Acute respiratory failure, unspecified whether with hypoxia or hypercapnia; J18.9 Pneumonia, unspecified organism; J81.1 Chronic pulmonary edema; I50.23 Acute on chronic systolic (congestive) heart failure; E87.2 Acidosis; F03.90 Unspecified dementia, unspecified severity, without behavioral disturbance, psychotic disturbance, mood disturbance, and anxiety; I11.0 Hypertensive heart disease with heart failure; E87.1 Hypo-osmolality and hyponatremia; N39.0 Urinary tract infection, site not specified; I49.5 Sick sinus syndrome; D69.1 Qualitative platelet defects; E11.9 Type 2 diabetes mellitus without complications; D50.9 Iron deficiency anemia, unspecified; E78.5 Hyperlipidemia, unspecified; I69.398 Other sequelae of cerebral infarction; M81.0 Age-related osteoporosis without current pathological fracture; E66.9 Obesity, unspecified; J98.01 Acute bronchospasm; T45.525A Adverse effect of antithrombotic drugs, initial encounter; Y92.89 Other specified places as the place of occurrence of the external cause; F39 Unspecified mood [affective] disorder; F41.9 Anxiety disorder, unspecified; Z68.28 Body mass index [BMI] 28.0-28.9, adult
CPT/HCPCS: 36415-UA; 36600-90; 71010-TC; 71275-TC; 76000-TC; 80048-TC; 80053-TC; 81001-TC; 82140-TC; 82607-90; 82728-90; 82746-90; 82803-TC; 82947-TC; 82948-90; 83036-90; 83540-90; 83550-90; 83605; 83735-TC; 83880-TC; 84100-TC; 84443-TC; 84484-TC; 85007-TC; 85025-TC; 85027-TC; 85049-TC; 85379-TC; 85384-TC; 85610-TC; 85730-TC; 85999-90; 86850-TC; 86900-TC; 86901-TC; 93005; 94640; 94660; C9113; J0461; J0610; J0690; J1644; J1815; J1940; J1956; J2001; J2060; J2250; J2270; J2543; J2704; J2920; J3475; J3480; J7030; J7051; P9035; Z7502; Z7610